=== PATIENT | male | born 1930 | race Caucasian/White ===

== ENCOUNTER 2018-12-31 13:48 | Emergency (ER) | payer MEDICARE, OTHER ==
[2018-12-31 14:11] VITALS: BP 139/79; PULSE 101; RESP 20; TEMP 98.2
[2018-12-31] MEDS ORDERED: FAMOTIDINE 20 MG TAB ONE (14:30)
[2018-12-31] MEDS ORDERED: diphenhydrAMINE 50 MG CAP ONE (14:30)
[2018-12-31] MEDS ORDERED: methylPREDNISolone SOD SUCCI 125 MG/2 ML VIAL ONE (14:30)
== END 2018-12-31 15:00 | disposition home or self-care (01) ==
LOC: EC 13:48
DX: T78.40XA Allergy, unspecified, initial encounter (principal); H57.89 Other specified disorders of eye and adnexa
CPT/HCPCS: 99283; 96372; J2930

== ENCOUNTER 2019-12-25 16:57 | Inpatient (IN) | payer MEDICARE, OTHER ==
[2019-12-25] MEDS ORDERED: ACETAMINOPHEN TAB 500 MG TAB PO STA (17:15)
--- NOTE | 2019-12-25 17:18 | ED ---
General Adult HPI - General Chief complaint: Weakness Stated complaint: Weakness Time Seen by Provider: 12/25/19 17:09 Source: patient, family Mode of arrival: wheelchair Limitations: physical limitation - History of Present Illness Initial comments: 89-year-old male patient presents to the emergency department today for evaluation of disorientation and weakness. Patient states this started last night she did have one episode of diarrhea. States that disorientation continued throughout the day today so he did make an appointment with his doctor however his sons thought it be better if he was evaluated in the emergency department. He does have a fever in triage, patient states he was unaware that he had a fever. He denies any chest pain or shortness of breath. Denies cough or congestion. He does report some nausea but no vomiting. He is reporting some left-sided abdominal discomfort. Denies any hematochezia, melena, hematuria, dysuria, urinary frequency, urinary urgency. Denies any dizziness him a headache, neck pain, neck stiffness. - Related Data Home Medications Medication Instructions Recorded Confirmed Aspirin 81 mg PO DAILY 03/20/16 12/31/18 EPINEPHrine (Auto Inject) [Epipen] 0.3 mg IM ONCE PRN 03/20/16 12/31/18 Enalapril [Vasotec] 10 mg PO DAILY 03/20/16 12/31/18 Timolol 0.5% Ophth Soln [Timoptic 1 drop BOTH EYES DAILY 12/31/18 12/31/18 0.5% Ophth Soln] Allergies Allergy/AdvReac Type Severity Reaction Status Date / Time bee pollen Allergy Anaphylaxis Verified 12/25/19 17:06 honey Allergy Rash/Hives Verified 12/25/19 17:06 venom-honey bee Allergy Anaphylaxis Verified 12/25/19 17:06 [bee venom (honey bee)] venom-wasp [wasp venom] Allergy Anaphylaxis Verified 12/25/19 17:06 Review of Systems ROS Statement: Those systems with pertinent positive or pertinent negative responses have been documented in the HPI. ROS Other: All systems not noted in ROS Statement are negative. Past Medical History Past Medical History: Hypertension Additional Past Medical History / Comment(s): Melanoma removed from R side of trunk, past fracture L wrist, hemorrhoids. History of Any Multi-Drug Resistant Organisms: None Reported Past Surgical History: Hernia Repair Additional Past Surgical History / Comment(s): umbilical hernia repair, colonoscopies x 2-normal, melanoma removed R side of trunk. Past Anesthesia/Blood Transfusion Reactions: No Reported Reaction Past Psychological History: No Psychological Hx Reported Smoking Status: Former smoker Past Alcohol Use History: Occasional Past Drug Use History: None Reported - Past Family History Father Additional Family Medical History / Comment(s): Father had heart problems. He at the age of 57yrs. Mother Family Medical History: Cancer Additional Family Medical History / Comment(s): Mother of bowel cancer at the age of 89yrs old. General Exam Limitations: physical limitation General appearance: alert, in no apparent distress, other (Physical well-develo ped, well-nourished elderly male patient in no acute distress. Vital signs upon presentation are temperature 101.3F, pulse 122, respirations 18, blood pressure 99/64, pulse ox 96% on room air.) Eye exam: Present: normal appearance, PERRL, EOMI. Absent: scleral icterus, co njunctival injection, periorbital swelling Respiratory exam: Present: normal lung sounds bilaterally. Absent: respiratory distress, wheezes, rales, rhonchi, stridor Cardiovascular Exam: Present: normal rhythm, tachycardia, normal heart sounds. Absent: systolic murmur, diastolic murmur, rubs, gallop, clicks GI/Abdominal exam: Present: soft, tenderness (Left upper quadrant tenderness.), normal bowel sounds. Absent: distended, guarding, rebound, rigid Neurological exam: Present: alert, oriented X3, CN II-XII intact Psychiatric exam: Present: normal affect, normal mood Skin exam: Present: warm, dry, intact, normal color. Absent: rash Course Vital Signs 12/25/19 12/25/19 12/25/19 17:03 17:45 18:50 Temperature 101.3 F H 99.5 F Pulse Rate 122 H 109 H 108 H Respiratory 18 18 18 Rate Blood Pressure 99/64 124/63 122/73 O2 Sat by Pulse 96 97 97 Oximetry EKG Findings - EKG Comments: EKG Findings:: EKG obtained at 1729 to sinus tachycardia. Ventricular rate of 1:15, [place] interval 170, QRS duration 98, QT 344, QTC 475. No evidence of ST elevation or depression. Medical Decision Making - Medical Decision Making 89-year-old male patient presents to the emergency department today for evaluation of disorientation. Upon arrival patient was febrile with a temperature of 101.3F. Patient physical exam did reveal left mid abdominal tenderness. Labs reviewed and did reveal white blood cell count of 17.3, hemoglobin 12.7, BUN 40, creatinine 1.96. Plasma lactic acid is 3.6. Urine shows no evidence for infection. CT abdomen and pelvis without contrast was obtained due to renal function showed evidence for possible sigmoid diverticulitis versus appendicitis. He has no right lower quadrant tenderness. He does have obvious sigmoid diverticulosis is more likely. There is also evidence for a renal tumor increase in size from his previous CT scan and he does have blood in his urine. He'll be admitted to the hospital with IV antibiotics. Patient family were updated regarding findings and plan of care, they are agreeable. - Lab Data Result diagrams: 12/25/19 17:34 12/25/19 17:34 Lab Results 12/25/19 12/25/19 12/25/19 Range/Units 17:34 17:34 17:34 WBC 17.3 H (3.8-10.6) k/uL RBC 4.13 L (4.30-5.90) m/uL Hgb 12.7 L (13.0-17.5) gm/dL Hct 40.6 (39.0-53.0) % MCV 98.3 (80.0-100.0) fL MCH 30.9 (25.0-35.0) pg MCHC 31.4 (31.0-37.0) g/dL RDW 14.1 (11.5-15.5) % Plt Count 172 (150-450) k/uL Neutrophils % 91 % Lymphocytes % 3 % Monocytes % 4 % Eosinophils % 2 % Basophils % 0 % Neutrophils # 15.7 H (1.3-7.7) k/uL Lymphocytes # 0.5 L (1.0-4.8) k/uL Monocytes # 0.6 (0-1.0) k/uL Eosinophils # 0.3 (0-0.7) k/uL Basophils # 0.0 (0-0.2) k/uL PT 10.8 (9.0-12.0) sec INR 1.0 (<1.2) APTT 24.5 (22.0-30.0) sec Sodium 135 L (137-145) mmol/L Potassium 4.7 (3.5-5.1) mmol/L Chloride 100 (98-107) mmol/L Carbon Dioxide 22 (22-30) mmol/L Anion Gap 13 mmol/L BUN 40 H (9-20) mg/dL Creatinine 1.96 H (0.66-1.25) mg/dL Est GFR (CKD-EPI)AfAm 34 (>60 ml/min/1.73 sqM) Est GFR (CKD-EPI)NonAf 30 (>60 ml/min/1.73 sqM) Glucose 163 H (74-99) mg/dL Lactic Ac Sepsis Rflx Plasma Lactic Acid Dank (0.7-2.0) mmol/L Calcium 9.0 (8.4-10.2) mg/dL Total Bilirubin 1.6 H (0.2-1.3) mg/dL AST 26 (17-59) U/L ALT 13 (4-49) U/L Alkaline Phosphatase 59 (38-126) U/L Total Protein 7.0 (6.3-8.2) g/dL Albumin 4.0 (3.5-5.0) g/dL Urine Color Urine Appearance (Clear) Urine pH (5.0-8.0) Ur Specific Hopkins (1.001-1.035) Urine Protein (Negative) Urine Glucose (UA) (Negative) Urine Ketones (Negative) Urine Blood (Negative) Urine Nitrite (Negative) Urine Bilirubin (Negative) Urine Urobilinogen (<2.0) mg/dL Ur Leukocyte Esterase (Negative) Urine RBC (0-5) /hpf Urine WBC (0-5) /hpf Amorphous Sediment (None) /hpf Hyaline Casts (0-2) /lpf Urine Mucus (None) /hpf 12/25/19 12/25/19 12/25/19 Range/Units 17:34 18:11 18:51 WBC (3.8-10.6) k/uL RBC (4.30-5.90) m/uL Hgb (13.0-17.5) gm/dL Hct (39.0-53.0) % MCV (80.0-100.0) fL MCH (25.0-35.0) pg MCHC (31.0-37.0) g/dL RDW (11.5-15.5) % Plt Count (150-450) k/uL Neutrophils % % Lymphocytes % % Monocytes % % Eosinophils % % Basophils % % Neutrophils # (1.3-7.7) k/uL Lymphocytes # (1.0-4.8) k/uL Monocytes # (0-1.0) k/uL Eosinophils # (0-0.7) k/uL Basophils # (0-0.2) k/uL PT (9.0-12.0) sec INR (<1.2) APTT (22.0-30.0) sec Sodium (137-145) mmol/L Potassium (3.5-5.1) mmol/L Chloride (98-107) mmol/L Carbon Dioxide (22-30) mmol/L Anion Gap mmol/L BUN (9-20) mg/dL Creatinine (0.66-1.25) mg/dL Est GFR (CKD-EPI)AfAm (>60 ml/min/1.73 sqM) Est GFR (CKD-EPI)NonAf (>60 ml/min/1.73 sqM) Glucose (74-99) mg/dL Lactic Ac Sepsis Rflx Y Plasma Lactic Acid Dank 3.6 H* (0.7-2.0) mmol/L Calcium (8.4-10.2) mg/dL Total Bilirubin (0.2-1.3) mg/dL AST (17-59) U/L ALT (4-49) U/L Alkaline Phosphatase (38-126) U/L Total Protein (6.3-8.2) g/dL Albumin (3.5-5.0) g/dL Urine Color Yellow Urine Appearance Clear (Clear) Urine pH 5.5 (5.0-8.0) Ur Specific Hopkins 1.019 (1.001-1.035) Urine Protein 1+ H (Negative) Urine Glucose (UA) Negative (Negative) Urine Ketones Negative (Negative) Urine Blood Small H (Negative) Urine Nitrite Negative (Negative) Urine Bilirubin Negative (Negative) Urine Urobilinogen <2.0 (<2.0) mg/dL Ur Leukocyte Esterase Negative (Negative) Urine RBC 1 (0-5) /hpf Urine WBC 2 (0-5) /hpf Amorphous Sediment Rare H (None) /hpf Hyaline Casts 29 H (0-2) /lpf Urine Mucus Rare H (None) /hpf - Radiology Data Radiology results: report reviewed, image reviewed CT abdomen and pelvis without contrast is obtained. Report was reviewed in its entirety. Impression by Dr. Borja shows solid mass in the medial right kidney that appears increased in size compared to 03/28/2016 and suspicious for tumor. Inflammatory changes in the pelvis in the midline and towards the right side probably due to sigmoid diverticulitis. Appendix not seen. Appendicitis not excluded. There are numerous to white diverticula. There are numerous descending colon diverticula. Mildly dilated small bowel fluid levels improved compared to old CT scanning could relate ileus or partial mechanical obstruction. Disposition Clinical Impression: Diverticulitis, Kidney tumor, Sepsis Disposition: ADMITTED IP TO [facility] Condition: Serious Decision to Admit Reason: Admit from EC Decision Date: 12/25/19 Decision Time: 20:10
[2019-12-25] MEDS: SODIUM CHLORIDE 0.9% 500 ML 500 ML IV SCH ×2 (17:45→17:48)
[2019-12-25 17:49] LABS: Basophils % (A) 0 %; Eosinophils # (A) 0.3 k/uL (0-0.7); Eosinophils % (A) 2 %; HCT 40.6 % (39.0-53.0); HGB 12.7 gm/dL (13.0-17.5); Lymphocytes # (A) 0.5 k/uL (1.0-4.8); Lymphocytes % (A) 3 %; MCH 30.9 pg (25.0-35.0); MCHC 31.4 g/dL (31.0-37.0); MCV 98.3 fL (80.0-100.0); Mean Platelet Volume 8.1; Monocytes # (A) 0.6 k/uL (0-1.0); Monocytes % (A) 4 %; Neutrophils # (A) 15.7 k/uL (1.3-7.7); Neutrophils % (A) 91 %; Platelet Count 172 k/uL (150-450); RBC 4.13 m/uL (4.30-5.90); RDW 14.1 % (11.5-15.5); WBC 17.3 k/uL (3.8-10.6)
[2019-12-25 17:58] LABS: Partial Thromboplastin Time 24.5 sec (22.0-30.0); Potassium 4.7 mmol/L (3.5-5.1); Prothrombin Time 10.8 sec (9.0-12.0); Total Bilirubin 1.6 mg/dL (0.2-1.3)
[2019-12-25 19:13] LABS: Amorphous Sediment,Urine Rare /hpf; Appearance,Urine Clear (Clear); Bilirubin,Urine Negative (Negative); Blood,Urine Small (Negative); Color,Urine Yellow; Glucose,Urine (UA) Negative (Negative); Hyaline Casts,Urine 29 /lpf (0-2); Ketones,Urine Negative (Negative); Leukocyte Esterase,Urine Negative (Negative); Mucus,Urine Rare /hpf; Nitrite,Urine Negative (Negative); PH, Urine 5.5 (5.0-8.0); Protein,Urine 1+ (Negative); RBC,Urine 1 /hpf (0-5); Specific Gravity,Urine 1.019 (1.001-1.035); Urobilinogen,Urine <2.0 mg/dL (<2.0); WBC,Urine 2 /hpf (0-5)
--- NOTE | 2019-12-25 19:52 | CT ---
EXAMINATION TYPE: CT abdomen pelvis wo con DATE OF EXAM: 12/25/2019 COMPARISON: 03/28/2016 HISTORY: LLQ pain with fever CT DLP: 831.4 mGycm Automated exposure control for dose reduction was used. There is some infiltrate and atelectasis at both lung bases. There is 3 cm area of airspace consolida tion lateral posterior left lower lobe. There is no pericardial effusion. Heart is slightly enlarged. There is no pleural effusion. There are multiple calcified small gallstones. Bile ducts are not dilated. Gallbladder is large and m easures 4.5 cm. There is no focal liver defect. Spleen is intact. There is no pancreatic mass. Stomac h is intact. There is no adrenal mass. There is 4.2 x 3.1 cm soft tissue mass involving the medial cortex right ki dney. There is 2 cm cortical cyst lateral right kidney. There is 6.5 cm cortical cyst lower pole righ t kidney. Abdominal aorta is atheromatous. There is no retroperitoneal adenopathy. 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 Bladder distends smoothly. There is some prostate calcification. There is right-sided inguinal hernia that contains fat. There is some mild mesenteric fat stranding in the lower abdomen. There is more extensive fat strandi ng around the cecum which is adjacent to the sigmoid colon.. There are diverticula of the sigmoid col on. Inflammatory changes could be sigmoid diverticulitis. There are numerous diverticula of the desce nding colon. There are some distended multiple small bowel loops with fluid levels. Small bowel measu res up to 3.3 cm. The distal ileum is not dilated. There is no free air. There is no ascites. Lumbar vertebra have normal alignment. Disc spaces are fairly normal. Bony pelvis is intact. IMPRESSION: There is a solid mass in the medial right kidney that appears increased in size compared to 03/28/2016 and suspicious for tumor. Old exam measures 3.5 cm and now measures 4.3 cm. Renal cortical cysts. Inflammatory changes in the pelvis in the midline and towards the right side probably due to sigmoid diverticulitis. Appendix not seen. Appendicitis not excluded. There are numerous sigmoid diverticula. There are numerous descending colon diverticula. Mildly dilated small bowel with fluid levels improved compared to old CT scan and could relate to ile us or partial mechanical obstruction..
[2019-12-25] MEDS ORDERED: MORPHINE SULFATE 2 MG/ML SYRINGE IV PRN (20:04)
[2019-12-25] MEDS ORDERED: NALOXONE 0.4 MG/ML 1 ML VIAL IV PRN (20:04)
[2019-12-25] MEDS ORDERED: PIPERACILLIN-TAZOBACTAM 3.375 GM in SODIUM CHLORIDE 0.9% 100 ML IVPB STA (20:04)
[2019-12-25] MEDS ORDERED: ACETAMINOPHEN TAB 325 MG TAB PO PRN (20:04)
[2019-12-25] MEDS ORDERED: ONDANSETRON 4 MG/2 ML VIAL IVP PRN (20:04)
[2019-12-25] MEDS ORDERED: PIPERACILLIN-TAZOBACTAM 3.375 GM in SODIUM CHLORIDE 0.9% 100 ML IVPB SCH (20:15)
[2019-12-25] MEDS ORDERED: metroNIDAZOLE-NS PMX 500 MG in SALINE 1 100ML.BAG IVPB STA (20:22)
[2019-12-25] MEDS: SODIUM CHLORIDE 0.9% 1,000 ML IV SCH (21:22)
[2019-12-25] MEDS: diphenhydrAMINE 50 MG/ML 1 ML VIAL IVP PRN (22:05)
[2019-12-26] MEDS: SODIUM CHLORIDE 0.9% 1,000 ML IV SCH ×3 (05:41→20:52)
[2019-12-26 06:48] LABS: Albumin 3.3 g/dL (3.5-5.0); Calcium 8.1 mg/dL (8.4-10.2); Potassium 3.8 mmol/L (3.5-5.1); Total Bilirubin 1.1 mg/dL (0.2-1.3)
[2019-12-26 06:51] LABS: Basophils % (A) 0 %; Eosinophils # (A) 0.1 k/uL (0-0.7); Eosinophils % (A) 1 %; HCT 37.3 % (39.0-53.0); HGB 12.2 gm/dL (13.0-17.5); Hypochromasia Slight; Lymphocytes # (A) 0.6 k/uL (1.0-4.8); Lymphocytes % (A) 4 %; MCH 32.8 pg (25.0-35.0); MCHC 32.8 g/dL (31.0-37.0); MCV 99.8 fL (80.0-100.0); Macrocytosis Slight; Mean Platelet Volume 8.3; Monocytes # (A) 0.4 k/uL (0-1.0); Monocytes % (A) 3 %; Neutrophils # (A) 12.6 k/uL (1.3-7.7); Neutrophils % (A) 90 %; Platelet Count 158 k/uL (150-450); RBC 3.74 m/uL (4.30-5.90); RDW 14.3 % (11.5-15.5); WBC 13.9 k/uL (3.8-10.6)
[2019-12-26] MEDS: diphenhydrAMINE 50 MG/ML 1 ML VIAL IVP PRN (08:12)
[2019-12-26] MEDS: metroNIDAZOLE-NS PMX 500 MG in SALINE 1 100ML.BAG IVPB SCH ×2 (08:43→16:56)
--- NOTE | 2019-12-26 14:13 | P.GSCN ---
History of Present Illness Consult date: 12/26/19 Reason for Consult: Diverticulitis Requesting physician: Danielle Doran History of present illness: CHIEF COMPLAINT: Abdominal pain HISTORY OF PRESENT ILLNESS: 89-year-old male who presented to the emergency room with a chief complaint of weakness. Patient also reporting abdominal pain. Patient denied nausea or vomiting. Denies diarrhea or constipation. PAST MEDICAL HISTORY: See list. PAST SURGICAL HISTORY: See list. SOCIAL HISTORY: No illicit drug use. REVIEW OF SYSTEMS: CONSTITUTIONAL: Denies fever or chills. Reports weakness HEENT: Denies blurred vision, vision changes, or eye pain. Denies hemoptysis CARDIOVASCULAR: Denies chest pain or pressure. RESPIRATORY: No shortness of breath. GASTROINTESTINAL: Refer to HPI for pertinent findings HEMATOLOGIC: Denies bleeding disorders. GENITOURINARY: Denies any blood in urine. SKIN: Denies pruitis. Denies rash. PHYSICAL EXAM: VITAL SIGNS: Reviewed. GENERAL: Well-developed in no acute distress. HEENT: No sclera icterus. Extraocular movements grossly intact. Moist buccal mucosa. Head is atraumatic, normocephalic. ABDOMEN: Soft. Nondistended. Tenderness upon palpation to left lower quadrant. NEUROLOGIC: Alert and oriented. Cranial nerves II through XII grossly intact. LABORATORY DATA: WBC 13.9. Hemoglobin 12.2. Platelet count 158. IMAGING: CT abdomen and pelvis: Solid mass in the right medial kidney that appears increased in size compared to 2016 and suspicious for tumor. Inflammatory changes in the pelvis most likely due to sigmoid diverticulitis. Appendix not seen. Appendicitis is not excluded. Numerous sigmoid diverticula. ASSESSMENT: 1. Acute sigmoid diverticulitis 2. History of small bowel obstruction with exploratory laparotomy with lysis of adhesions, February 2016 PLAN: -Monitor WBC. Continue antibiotics -Continue NPO status today secondary to abdominal pain. Possible clear liquid diet tomorrow -No surgical intervention recommended -Consult for general surgery was also placed for renal mass. Recommend urology consult as general surgery does not evaluate or treat renal masses Nurse practitioner note has been reviewed by physician. Signing provider agrees with the documented findings, assessment, and plan of care. Past Medical History Past Medical History: Hypertension Additional Past Medical History / Comment(s): Melanoma removed from R side of trunk, past fracture L wrist, hemorrhoids. History of Any Multi-Drug Resistant Organisms: None Reported Past Surgical History: Hernia Repair Additional Past Surgical History / Comment(s): umbilical hernia repair, colonoscopies x 2-normal, melanoma removed R side of trunk. Past Anesthesia/Blood Transfusion Reactions: No Reported Reaction Past Psychological History: No Psychological Hx Reported Smoking Status: Former smoker Past Alcohol Use History: Occasional Past Drug Use History: None Reported - Past Family History Father Additional Family Medical History / Comment(s): Father had heart problems. He at the age of 57yrs. Mother Family Medical History: Cancer Additional Family Medical History / Comment(s): Mother of bowel cancer at the age of 89yrs old. Medications and Allergies Home Medications Medication Instructions Recorded Confirmed Type Aspirin 81 mg PO DAILY 03/20/16 12/26/19 History EPINEPHrine (Auto Inject) [Epipen] 0.3 mg IM ONCE PRN 03/20/16 12/26/19 History Enalapril [Vasotec] 10 mg PO DAILY 03/20/16 12/26/19 History Allergies Allergy/AdvReac Type Severity Reaction Status Date / Time bee pollen Allergy Anaphylaxis Verified 12/26/19 12:15 honey Allergy Rash/Hives Verified 12/26/19 12:15 venom-honey bee Allergy Anaphylaxis Verified 12/26/19 12:15 [bee venom (honey bee)] venom-wasp [wasp venom] Allergy Anaphylaxis Verified 12/26/19 12:15 Surgical - Exam Vital Signs Temp Pulse Resp BP Pulse Ox 101.3 F H 122 H 18 99/64 96 12/25/19 17:03 12/25/19 17:03 12/25/19 17:03 12/25/19 17:03 12/25/19 17:03 Results - Labs 12/26/19 06:16 12/26/19 06:16 Abnormal Lab Results - Last 24 Hours (Table) 12/25/19 12/25/19 12/25/19 Range/Units 17:34 17:34 17:34 WBC 17.3 H (3.8-10.6) k/uL RBC 4.13 L (4.30-5.90) m/uL Hgb 12.7 L (13.0-17.5) gm/dL Hct (39.0-53.0) % Neutrophils # 15.7 H (1.3-7.7) k/uL Lymphocytes # 0.5 L (1.0-4.8) k/uL Sodium 135 L (137-145) mmol/L Carbon Dioxide (22-30) mmol/L BUN 40 H (9-20) mg/dL Creatinine 1.96 H (0.66-1.25) mg/dL Glucose 163 H (74-99) mg/dL Plasma Lactic Acid Dank 3.6 H* (0.7-2.0) mmol/L Calcium (8.4-10.2) mg/dL Total Bilirubin 1.6 H (0.2-1.3) mg/dL Total Protein (6.3-8.2) g/dL Albumin (3.5-5.0) g/dL Urine Protein (Negative) Urine Blood (Negative) Amorphous Sediment (None) /hpf Hyaline Casts (0-2) /lpf Urine Mucus (None) /hpf 12/25/19 12/26/19 12/26/19 Range/Units 18:51 06:16 06:16 WBC 13.9 H (3.8-10.6) k/uL RBC 3.74 L (4.30-5.90) m/uL Hgb 12.2 L (13.0-17.5) gm/dL Hct 37.3 L (39.0-53.0) % Neutrophils # 12.6 H (1.3-7.7) k/uL Lymphocytes # 0.6 L (1.0-4.8) k/uL Sodium (137-145) mmol/L Carbon Dioxide 20 L (22-30) mmol/L BUN 40 H (9-20) mg/dL Creatinine 1.79 H (0.66-1.25) mg/dL Glucose 128 H (74-99) mg/dL Plasma Lactic Acid Dank (0.7-2.0) mmol/L Calcium 8.1 L (8.4-10.2) mg/dL Total Bilirubin (0.2-1.3) mg/dL Total Protein 6.0 L (6.3-8.2) g/dL Albumin 3.3 L (3.5-5.0) g/dL Urine Protein 1+ H (Negative) Urine Blood Small H (Negative) Amorphous Sediment Rare H (None) /hpf Hyaline Casts 29 H (0-2) /lpf Urine Mucus Rare H (None) /hpf Diabetes panel 05/28/20 05/29/20 Range/Units 17:34 06:16 Sodium 135 L 138 (137-145) mmol/L Potassium 4.7 3.8 (3.5-5.1) mmol/L Chloride 100 105 (98-107) mmol/L Carbon Dioxide 22 20 L (22-30) mmol/L BUN 40 H 40 H (9-20) mg/dL Creatinine 1.96 H 1.79 H (0.66-1.25) mg/dL Glucose 163 H 128 H (74-99) mg/dL Calcium 9.0 8.1 L (8.4-10.2) mg/dL AST 26 28 (17-59) U/L ALT 13 13 (4-49) U/L Alkaline Phosphatase 59 56 (38-126) U/L Total Protein 7.0 6.0 L (6.3-8.2) g/dL Albumin 4.0 3.3 L (3.5-5.0) g/dL Calcium panel 12/25/19 12/26/19 Range/Units 17:34 06:16 Calcium 9.0 8.1 L (8.4-10.2) mg/dL Albumin 4.0 3.3 L (3.5-5.0) g/dL Pituitary panel 12/25/19 12/26/19 Range/Units 17:34 06:16 Sodium 135 L 138 (137-145) mmol/L Potassium 4.7 3.8 (3.5-5.1) mmol/L Chloride 100 105 (98-107) mmol/L Carbon Dioxide 22 20 L (22-30) mmol/L BUN 40 H 40 H (9-20) mg/dL Creatinine 1.96 H 1.79 H (0.66-1.25) mg/dL Glucose 163 H 128 H (74-99) mg/dL Calcium 9.0 8.1 L (8.4-10.2) mg/dL Adrenal panel 12/25/19 12/26/19 Range/Units 17:34 06:16 Sodium 135 L 138 (137-145) mmol/L Potassium 4.7 3.8 (3.5-5.1) mmol/L Chloride 100 105 (98-107) mmol/L Carbon Dioxide 22 20 L (22-30) mmol/L BUN 40 H 40 H (9-20) mg/dL Creatinine 1.96 H 1.79 H (0.66-1.25) mg/dL Glucose 163 H 128 H (74-99) mg/dL Calcium 9.0 8.1 L (8.4-10.2) mg/dL Total Bilirubin 1.6 H 1.1 (0.2-1.3) mg/dL AST 26 28 (17-59) U/L ALT 13 13 (4-49) U/L Alkaline Phosphatase 59 56 (38-126) U/L Total Protein 7.0 6.0 L (6.3-8.2) g/dL Albumin 4.0 3.3 L (3.5-5.0) g/dL
[2019-12-26] MEDS ORDERED: ENALAPRIL 10 MG PO SCH (16:00)
--- NOTE | 2019-12-26 16:54 | P.HPIM ---
History of Present Illness H&P Date: 12/26/19 Chief Complaint: Abdominal pain This is an 89-year-old gentleman with history of diverticulosis, small bowel obstruction secondary to adhesions with exploratory laparotomy with subsequent repeat laparotomy with closure of fascial dehiscence, inguinal hernia repair, hypertension, melanoma, nicotine dependence and multiple other medical issues presented to the ER with complaints of increasing generalized weakness, left- sided abdominal pain,nausea, no emesis, diarrhea accompanied by disorientation. Denied fever,chills or cough. Denies congestion. Denies chest pain, palpi tations or shortness of breath. Denies hemoptysis, hematochezia, melena, hematuria. Denies lightheadedness, dizziness or focal deficits. 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 EKG point sinus tachycardia, troponin pending. On admission, febrile with temperature up 101.3, tachycardic heart rate 122, hypotensive, blood pressure 99/64, respiratory rate 18, maintaining O2 sats in the 90s on room air. WBC 17.3, hemoglobin 12.7, platelets 172, INR 1, sodium 135, BUN 40, creatinine 1.96. Lactic acid 3.6, received IV fluid hydration ,decreased to 1.2. Total bili mildly elevated at 1.6, LFTs within normal limits. UA reporting blood. Coronavirus not detected. IV antibiotics of Rocephin and Flagyl initiated in addition to IV fluid hydration. Surgery and interventional radiology consulted. Review of Systems ROS Statement: Those systems with pertinent positive or pertinent negative responses have been documented in the HPI. ROS Other: All systems not noted in ROS Statement are negative. Past Medical History Past Medical History: Hypertension Additional Past Medical History / Comment(s): Melanoma removed from R side of trunk, past fracture L wrist, hemorrhoids. History of Any Multi-Drug Resistant Organisms: None Reported Past Surgical History: Hernia Repair Additional Past Surgical History / Comment(s): umbilical hernia repair, colo noscopies x 2-normal, melanoma removed R side of trunk. Past Anesthesia/Blood Transfusion Reactions: No Reported Reaction Past Psychological History: No Psychological Hx Reported Smoking Status: Former smoker Past Alcohol Use History: Occasional Past Drug Use History: None Reported - Past Family History Father Additional Family Medical History / Comment(s): Father had heart problems. He at the age of 57yrs. Mother Family Medical History: Cancer Additional Family Medical History / Comment(s): Mother of bowel cancer at the age of 89yrs old. Medications and Allergies Home Medications Medication Instructions Recorded Confirmed Type Aspirin 81 mg PO DAILY 03/20/16 12/26/19 History EPINEPHrine (Auto Inject) [Epipen] 0.3 mg IM ONCE PRN 03/20/16 12/26/19 History Enalapril [Vasotec] 10 mg PO DAILY 03/20/16 12/26/19 History Allergies Allergy/AdvReac Type Severity Reaction Status Date / Time bee pollen Allergy Anaphylaxis Verified 12/26/19 12:15 honey Allergy Rash/Hives Verified 12/26/19 12:15 venom-honey bee Allergy Anaphylaxis Verified 12/26/19 12:15 [bee venom (honey bee)] venom-wasp [wasp venom] Allergy Anaphylaxis Verified 12/26/19 12:15 Physical Exam Vitals: Vital Signs Temp Pulse Pulse Resp BP BP Pulse Ox 12/26/19 13:55 98.3 F 108 H 18 139/76 96 12/26/19 13:29 18 12/26/19 12:12 101 H 18 137/81 100 12/26/19 07:57 103 H 18 120/74 97 12/26/19 05:45 97.9 F 98 17 127/73 96 12/25/19 21:25 99.2 F 97 17 120/78 98 12/25/19 18:50 99.5 F 108 H 18 122/73 97 12/25/19 17:45 109 H 18 124/63 97 12/25/19 17:03 101.3 F H 122 H 18 99/64 96 GENERAL: Well-developed elderly gentleman ,Sitting up in bed, no acute distress. HEAD: Atraumatic, normocephalic. EYES: Pupils equal, round, and reactive to light, extraocular movements intact, sclera anicteric, conjunctiva are normal. ENT: Oropharynx clear without exudates. Oral mucosa dry. NECK:Supple without lymphadenopathy or JVD. LUNGS: Breath sounds clear to auscultation bilaterally. No wheezes, rales, or rhonchi. HEART: Regular S1 and S2, tachycardic, No murmurs, rubs or gallops. ABDOMEN: Soft, left upper and lower quadrant tenderness,distended, normoactive bowel sounds. No guarding, no rebound. No masses or organomegaly appreciated. EXTREMITIES: 2+ peripheral pulses. No edema, clubbing or cyanosis. No calf tenderness. NEUROLOGICAL: Pt oriented x 3. Cranial nerves II through XII grossly intact. Strength and sensation grossly intact. PSYCH: Normal mood, normal affect. SKIN: Warm, dry, intact. Normal turgor. No rashes. Results CBC & Chem 7: 12/26/19 06:16 12/26/19 06:16 Labs: Abnormal Lab Results - Last 24 Hours (Table) 12/25/19 12/25/19 12/25/19 Range/Units 17:34 17:34 17:34 WBC 17.3 H (3.8-10.6) k/uL RBC 4.13 L (4.30-5.90) m/uL Hgb 12.7 L (13.0-17.5) gm/dL Hct (39.0-53.0) % Neutrophils # 15.7 H (1.3-7.7) k/uL Lymphocytes # 0.5 L (1.0-4.8) k/uL Sodium 135 L (137-145) mmol/L Carbon Dioxide (22-30) mmol/L BUN 40 H (9-20) mg/dL Creatinine 1.96 H (0.66-1.25) mg/dL Glucose 163 H (74-99) mg/dL Plasma Lactic Acid Dank 3.6 H* (0.7-2.0) mmol/L Calcium (8.4-10.2) mg/dL Total Bilirubin 1.6 H (0.2-1.3) mg/dL Total Protein (6.3-8.2) g/dL Albumin (3.5-5.0) g/dL Urine Protein (Negative) Urine Blood (Negative) Amorphous Sediment (None) /hpf Hyaline Casts (0-2) /lpf Urine Mucus (None) /hpf 12/25/19 12/26/19 12/26/19 Range/Units 18:51 06:16 06:16 WBC 13.9 H (3.8-10.6) k/uL RBC 3.74 L (4.30-5.90) m/uL Hgb 12.2 L (13.0-17.5) gm/dL Hct 37.3 L (39.0-53.0) % Neutrophils # 12.6 H (1.3-7.7) k/uL Lymphocytes # 0.6 L (1.0-4.8) k/uL Sodium (137-145) mmol/L Carbon Dioxide 20 L (22-30) mmol/L BUN 40 H (9-20) mg/dL Creatinine 1.79 H (0.66-1.25) mg/dL Glucose 128 H (74-99) mg/dL Plasma Lactic Acid Dank (0.7-2.0) mmol/L Calcium 8.1 L (8.4-10.2) mg/dL Total Bilirubin (0.2-1.3) mg/dL Total Protein 6.0 L (6.3-8.2) g/dL Albumin 3.3 L (3.5-5.0) g/dL Urine Protein 1+ H (Negative) Urine Blood Small H (Negative) Amorphous Sediment Rare H (None) /hpf Hyaline Casts 29 H (0-2) /lpf Urine Mucus Rare H (None) /hpf Assessment and Plan Assessment: Sepsis secondary to acute sigmoid diverticulitis in a patient with History of diverticulosis, possibly ileus, possible partial mechanical small bowel obstruction Renal mass, possibly tumor increasing in in size Leukocytosis History of small bowel obstruction secondary to adhesions with exploratory laparotomy with subsequent repeat laparotomy with closure of fascial dehiscence Acute renal failure secondary to dehydration Chronic kidney disease, 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 History of melanoma. History of umbilical hernia repair History of extensive nicotine dependence. Plan: Continue on current medication regime ,monitoring and symptomatic treatment. Maintain IV fluid hydration, rate decreased. Maintain nothing by mouth, possibly initiate clear liquids in a.m. if okay with surgery. Surgery and interventional radiology consulted. Blood cultures pending. Maintain IV antibiotics of Flagyl and Rocephin. Home meds have been reviewed and resumed accordingly. GI prophylaxis with Protonix. Potential renal biopsyPneumatic sleeves/compression stockings for DVT prophylaxis at this time. Close monitoring of renal function, electrolytes with repeat labs ordered for a.m. Prognosis guarded given multiple complex medical issues. The impression and plan of care has been dictated as directed. : I performed a history and examination of this patient, discussed the same with the dictator. I agree with the dictator's note ,documented as a scribe. Any additional findings or plans will be noted.
[2019-12-26] MEDS: PANTOPRAZOLE 40 MG/10 ML VIAL IVP SCH (16:56)
--- NOTE | 2019-12-26 19:14 | XR ---
EXAMINATION TYPE: XR chest 1V portable DATE OF EXAM: 12/26/2019 COMPARISON: 04/07/2016 HISTORY: Weakness, acute diverticulitis and sepsis. TECHNIQUE: Single frontal view of the chest is obtained. FINDINGS: Redemonstration of mediastinal widening. Left-sided PICC has been removed. Left basilar ai rspace disease along the left hemidiaphragm appears linear and likely relates to atelectasis. Diffuse osseous demineralization is seen. IMPRESSION: 1. Chronic-appearing mediastinal widening. Thoracic aortic aneurysm is possible. 2. Left basilar airspace disease, likely atelectasis.
[2019-12-27] MEDS: metroNIDAZOLE-NS PMX 500 MG in SALINE 1 100ML.BAG IVPB SCH ×4 (00:09→22:44)
[2019-12-27 07:00] LABS: Basophils % (A) 0 %; Eosinophils % (A) 0 %; HCT 33.8 % (39.0-53.0); HGB 10.5 gm/dL (13.0-17.5); Hypochromasia Slight; Lymphocytes # (A) 0.4 k/uL (1.0-4.8); Lymphocytes % (A) 4 %; MCH 31.1 pg (25.0-35.0); MCV 100.2 fL (80.0-100.0); Macrocytosis Slight; Mean Platelet Volume 8.7; Monocytes # (A) 0.5 k/uL (0-1.0); Monocytes % (A) 5 %; Neutrophils # (A) 9.4 k/uL (1.3-7.7); Neutrophils % (A) 90 %; Platelet Count 147 k/uL (150-450); RBC 3.38 m/uL (4.30-5.90); RDW 14.4 % (11.5-15.5); WBC 10.5 k/uL (3.8-10.6)
[2019-12-27 07:14] LABS: Calcium 7.4 mg/dL (8.4-10.2); Potassium 3.7 mmol/L (3.5-5.1)
[2019-12-27] MEDS: PANTOPRAZOLE 40 MG/10 ML VIAL IVP SCH (08:33)
[2019-12-27] MEDS: ASPIRIN 81 MG PO SCH (08:33)
[2019-12-27] MEDS ORDERED: METOPROLOL TARTRATE 12.5 MG TAB PO SCH (09:00)
--- NOTE | 2019-12-27 10:48 | P.PN ---
Subjective Progress Note Date: 12/27/19 Principal diagnosis: Diverticulitis Patient complaining of being thirsty. Pain is improved. Heart rate 100s. White blood cell count 10.5. Patient did have a bowel movement. Objective - Vital Signs Vital signs: Vital Signs Temp 98.6 F 12/26/19 22:35 Pulse 130 H 12/27/19 08:00 Resp 16 12/26/19 22:35 BP 131/71 12/26/19 22:35 Pulse Ox 98 12/26/19 22:35 Intake & Output 12/26/19 12/27/19 12/27/19 18:59 06:59 18:59 Intake Total 760 Output Total 1 Balance 759 Weight 85.275 kg Intake: Intake, IV Titration 760 Amount Sodium Chloride 0.9% 1, 660 000 ml @ 60 mls/hr IV . [id number] [facility] Rx#:[id number] metroNIDAZOLE-NS PMX 500 100 mg In Saline 1 100ml.bag @ 100 mls/hr IVPB Q8HR [facility] Rx#:[id number] Oral 0 Output: Urine/Stool Mix 1 Other: # Voids 1 # Bowel Movements 1 1 - Exam Abdomen: Soft, nondistended, left lower quadrant tenderness noted - Labs CBC & Chem 7: 12/27/19 05:49 12/27/19 05:49 Labs: Abnormal Lab Results - Last 24 Hours (Table) 12/26/19 12/26/19 12/27/19 Range/Units 06:16 23:20 05:49 RBC 3.38 L (4.30-5.90) m/uL Hgb 10.5 L (13.0-17.5) gm/dL Hct 33.8 L (39.0-53.0) % MCV 100.2 H (80.0-100.0) fL Plt Count 147 L (150-450) k/uL Neutrophils # 9.4 H (1.3-7.7) k/uL Lymphocytes # 0.4 L (1.0-4.8) k/uL Chloride (98-107) mmol/L Carbon Dioxide (22-30) mmol/L BUN (9-20) mg/dL Creatinine (0.66-1.25) mg/dL Glucose (74-99) mg/dL Calcium (8.4-10.2) mg/dL Troponin I 1.850 H* 3.950 H* (0.000-0.034) ng/mL 12/27/19 12/27/19 Range/Units 05:49 05:49 RBC (4.30-5.90) m/uL Hgb (13.0-17.5) gm/dL Hct (39.0-53.0) % MCV (80.0-100.0) fL Plt Count (150-450) k/uL Neutrophils # (1.3-7.7) k/uL Lymphocytes # (1.0-4.8) k/uL Chloride 112 H (98-107) mmol/L Carbon Dioxide 20 L (22-30) mmol/L BUN 34 H (9-20) mg/dL Creatinine 1.58 H (0.66-1.25) mg/dL Glucose 108 H (74-99) mg/dL Calcium 7.4 L (8.4-10.2) mg/dL Troponin I 3.910 H* (0.000-0.034) ng/mL Microbiology - Last 24 Hours (Table) 12/25/19 17:34 Blood Culture - Preliminary Blood No Growth after 24 hours Assessment and Plan (1) Diverticulitis Narrative/Plan: Patient doing better today. Will begin clear liquid diet. Await urology evaluation. Continue antibiotics Current Visit: Yes Status: Acute Code(s): K57.92 - DVTRCLI OF INTEST, PART U NSP, W/O PERF OR ABSCESS W/O BLEED SNOMED Code(s): 569472259
--- NOTE | 2019-12-27 12:43 | P.CRDCN ---
History of Present Illness Consult date: 12/27/19 Requesting physician: Saroj Bradshaw Chief complaint: Weakness and disorientation History of present illness: This is an 89-year-old gentleman with a documented history of diverticulosis, hypertension, a contained dependence, who presented to the emergency room with symptoms of generalized weakness, abdominal discomfort, and diarrhea. 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 EKG on presentation here showed a sinus tachycardia, at the time of my examination patient is currently in atrial fibrillation. Temperature on admission 101.3, heart rate 120s 130s, blood pressure 99/60, 90% on room air. White blood cell count 17.3, hemoglobin 12.7, platelet count 172. Sodium 135, BUN 40, creatinine 1.9, lactic acid 3.6, down to 1.2. Romero virus not detected. Troponins 1.8, 3.9, 3.9. Because of the abnormality in troponin a cardiology consultation has been requested. Patient denies having any chest discomfort or breathing difficulty. Past Medical History Past Medical History: Hypertension Additional Past Medical History / Comment(s): Melanoma removed from R side of trunk, past fracture L wrist, hemorrhoids SBO History of Any Multi-Drug Resistant Organisms: None Reported Past Surgical History: Hernia Repair Additional Past Surgical History / Comment(s): umbilical hernia repair, colonoscopies x 2-normal, melanoma removed R side of trunk. bowel resection Past Anesthesia/Blood Transfusion Reactions: No Reported Reaction Past Psychological History: No Psychological Hx Reported Additional Psychological History / Comment(s): Pt resides alone. He uses no assistive device. He drives. Smoking Status: Former smoker Past Alcohol Use History: Occasional Past Drug Use History: None Reported - Past Family History Father Additional Family Medical History / Comment(s): Father had heart problems. He at the age of 57yrs. Mother Family Medical History: Cancer Additional Family Medical History / Comment(s): Mother of bowel cancer at the age of 89yrs old. Medications and Allergies Home Medications Medication Instructions Recorded Confirmed Type Aspirin 81 mg PO DAILY 03/20/12/26/19 History EPINEPHrine (Auto Inject) [Epipen] 0.3 mg IM ONCE PRN 03/20/16 12/26/19 History Enalapril [Vasotec] 10 mg PO DAILY 03/20/16 12/26/19 History Allergies Allergy/AdvReac Type Severity Reaction Status Date / Time bee pollen Allergy Anaphylaxis Verified 12/26/19 12:15 honey Allergy Rash/Hives Verified 12/26/19 12:15 venom-honey bee Allergy Anaphylaxis Verified 12/26/19 12:15 [bee venom (honey bee)] venom-wasp [wasp venom] Allergy Anaphylaxis Verified 12/26/19 12:15 Physical Exam Vitals: Vital Signs Temp Pulse Resp BP Pulse Ox 12/27/19 12:00 90 110/75 12/27/19 08:00 98.1 F 130 H 121/67 97 12/27/19 00:17 110 H 12/26/19 22:35 98.6 F 107 H 16 131/71 98 12/26/19 18:00 98.5 F 108 H 18 123/79 97 12/26/19 13:55 98.3 F 108 H 18 139/76 96 12/26/19 13:29 18 Intake and Output 12/26/19 12/27/19 12/27/19 22:59 06:59 14:59 Intake Total 760 250 Output Total 1 Balance -1 760 250 Intake: Intake, IV Titration 760 150 Amount Sodium Chloride 0.9% 1, 660 000 ml @ 60 mls/hr IV . [id number] [facility] Rx#:[id number] cefTRIAXone 1 gm In 50 Sodium Chloride 0.9% 50 ml @ 100 mls/hr IVPB Q24HR [facility] Rx#:[id number] metroNIDAZOLE-NS PMX 500 100 100 mg In Saline 1 100ml.bag @ 100 mls/hr IVPB Q8HR [facility] Rx#:[id number] Oral 0 100 Output: Urine/Stool Mix 1 Other: # Voids 1 1 # Bowel Movements 1 1 Weight 85.275 kg PHYSICAL EXAMINATION: GENERAL: 89-year-old gentleman in no acute distress at the time of my examination HEENT: Head is atraumatic, normocephalic. Pupils equal, round. Sclera anicteric. Conjunctiva are clear. Mucous membranes of the mouth are moist. Neck is supple. There is no elevated jugular venous pressure. No carotid bruit is heard. HEART EXAMINATION: Heart S1, S2 tachycardic . No murmur or gallop heard. CHEST EXAMINATION: Lungs are clear to auscultation and precussion. No chest wall tenderness is noted on palpation or with deep breathing. ABDOMEN: Soft, nontender. Bowel sounds are heard. No organomegaly noted. EXTREMITIES: 2+ peripheral pulses with no evidence of peripheral edema and no calf tenderness noted. NEUROLOGIC patient is awake, alert and oriented 2 . . Results 12/27/19 05:49 12/27/19 05:49 Cardiac Enzymes 12/26/19 12/26/19 12/27/19 Range/Units 06:16 23:20 05:49 Troponin I 1.850 H* 3.950 H* 3.910 H* (0.000-0.034) ng/mL CBC 12/27/19 Range/Units 05:49 WBC 10.5 (3.8-10.6) k/uL RBC 3.38 L (4.30-5.90) m/uL Hgb 10.5 L (13.0-17.5) gm/dL Hct 33.8 L (39.0-53.0) % Plt Count 147 L (150-450) k/uL Comprehensive Metabolic Panel 12/27/19 Range/Units 05:49 Sodium 141 (137-145) mmol/L Potassium 3.7 (3.5-5.1) mmol/L Chloride 112 H (98-107) mmol/L Carbon Dioxide 20 L (22-30) mmol/L BUN 34 H (9-20) mg/dL Creatinine 1.58 H (0.66-1.25) mg/dL Glucose 108 H (74-99) mg/dL Calcium 7.4 L (8.4-10.2) mg/dL Current Medications Generic Name Dose Route Start Last Admin Trade Name Freq PRN Reason Stop Dose Admin Acetaminophen 650 mg 12/25/19 20:04 Tylenol Tab PO Q6HR PRN Mild Pain or Fever > 100.5 Aspirin 81 mg 12/27/19 09:00 12/27/19 08:33 Aspirin PO 81 mg DAILY [facility] Administration Diphenhydramine HCl 12.5 mg 12/25/19 21:29 12/26/19 08:12 Benadryl IVP 12.5 mg Q6HR PRN Administration Itching Sodium Chloride 1,000 mls @ 60 mls/hr 12/25/19 20:15 12/26/19 20:52 Saline 0.9% IV 60 mls/hr .[id number] [facility] Administration Metronidazole 500 mg/ IV 100 mls @ 100 mls/hr 12/26/19 08:00 12/27/19 08:33 Solution IVPB 100 mls/hr Q8HR [facility] Administration Ceftriaxone Sodium 1 gm/ 50 mls @ 100 mls/hr 12/26/19 09:00 12/27/19 08:34 Sodium Chloride IVPB 100 mls/hr Q24HR [facility] Administration Metoprolol Tartrate 12.5 mg 12/27/19 09:00 12/27/19 08:33 Lopressor PO 12.5 mg BID [facility] Administration Morphine Sulfate 2 mg 12/25/19 20:04 Morphine Sulfate (Inj) IV Q3H PRN Severe Pain Naloxone HCl 0.2 mg 12/25/19 20:04 Narcan IV Q2M PRN Opioid Reversal Ondansetron HCl 4 mg 12/25/19 20:04 Zofran IVP Q8HR PRN Nausea And Vomiting Pantoprazole Sodium 40 mg 12/26/19 16:00 12/27/19 08:33 Protonix IVP 40 mg DAILY [facility] Administration Intake and Output 12/26/19 12/27/19 12/27/19 22:59 06:59 14:59 Intake Total 760 250 Output Total 1 Balance -1 760 250 Intake: Intake, IV Titration 760 150 Amount Sodium Chloride 0.9% 1, 660 000 ml @ 60 mls/hr IV . [id number] [facility] Rx#:[id number] cefTRIAXone 1 gm In 50 Sodium Chloride 0.9% 50 ml @ 100 mls/hr IVPB Q24HR [facility] Rx#:[id number] metroNIDAZOLE-NS PMX 500 100 100 mg In Saline 1 100ml.bag @ 100 mls/hr IVPB Q8HR [facility] Rx#:[id number] Oral 0 100 Output: Urine/Stool Mix 1 Other: # Voids 1 1 # Bowel Movements 1 1 Weight 85.275 kg 12/27/19 05:49 12/27/19 05:49 EKG Interpretations (text) EKG shows a sinus tachycardia Assessment and Plan Plan: Assessment and plan #1 sepsis, possibly secondary to acute sigmoid diverticulitis #2 renal mass #3 abnormality in troponin, cannot completely rule out an acute coronary event, we will maximize the patient's medical therapy #4 acute on chronic renal failure #5 hypertension #6 history of nicotine dependence Plan We will obtain an echocardiogram with Doppler study. Continue baby aspirin daily. Continue beta caren 12-1/2 mg one tablet by mouth twice a day. Con servative medical therapy. Further recommendations to follow. DNP note has been reviewed, I agree with a documented findings and plan of care. Patient was seen and examined.
--- NOTE | 2019-12-27 12:52 | P.PN ---
Subjective Patient is admitted for from acute otitis media his been antibiotics symptoms improved abdominal pain improved. Patient has elevated troponins without any chest pain, probably valid the patient nondistended with myocardial infarction cannot be ruled out patient is not on heparin though patient has a renal mass as well. Patient has chronic kidney disease creatinine is at her visit his baseline present creatinine 1.58 came down to from 1.79. Patient troponin is 3.9 cardiology evaluated the patient. Constitutional: Denied any fatigue denied any fever. Cardio vascular: denied any chest pain, palpitations Gastrointestinal denied any nausea vomiting Pulmonary: Denied any shortness of breath cough Neurologic denied any new focal deficits All inpatient medications were reviewed and appropriate changes in these medications as dictated in the interval history and assessment and plan. Objective - Vital Signs Vital signs: Vital Signs Temp 98.1 F 12/27/19 08:00 Pulse 90 12/27/19 12:00 Resp 16 12/26/19 22:35 BP 110/75 12/27/19 12:00 Pulse Ox 99 12/27/19 12:00 Intake & Output 12/26/19 12/27/19 12/27/19 18:59 06:59 18:59 Intake Total 760 250 Output Total 1 Balance 759 250 Weight 85.275 kg Intake: Intake, IV Titration 760 150 Amount Sodium Chloride 0.9% 1, 660 000 ml @ 60 mls/hr IV . [id number] [facility] Rx#:[id number] cefTRIAXone 1 gm In 50 Sodium Chloride 0.9% 50 ml @ 100 mls/hr IVPB Q24HR [facility] Rx#:[id number] metroNIDAZOLE-NS PMX 500 100 100 mg In Saline 1 100ml.bag @ 100 mls/hr IVPB Q8HR [facility] Rx#:[id number] Oral 0 100 Output: Urine/Stool Mix 1 Other: # Voids 1 # Bowel Movements 1 1 - Exam PHYSICAL EXAMINATION: GENERAL: The patient is alert and oriented x3, not in any acute distress. Well developed, well nourished. HEENT: Pupils are round and equally reacting to light. EOMI. No scleral icterus. No conjunctival pallor. Normocephalic, atraumatic. No pharyngeal erythema. No thyromegaly. CARDIOVASCULAR: S1 and S2 present. No murmurs, rubs, or gallops. PULMONARY: Chest is clear to auscultation, no wheezing or crackles. ABDOMEN: Soft, nontender, nondistended, normoactive bowel sounds. No palpable organomegaly. MUSCULOSKELETAL: No joint swelling or deformity. EXTREMITIES: No cyanosis, clubbing, or pedal edema. NEUROLOGICAL: Gross neurological examination did not reveal any focal deficits. SKIN: No rashes. - Labs CBC & Chem 7: 12/27/19 05:49 12/27/19 05:49 Labs: Abnormal Lab Results - Last 24 Hours (Table) 12/26/19 12/26/19 12/27/19 Range/Units 06:16 23:20 05:49 RBC 3.38 L (4.30-5.90) m/uL Hgb 10.5 L (13.0-17.5) gm/dL Hct 33.8 L (39.0-53.0) % MCV 100.2 H (80.0-100.0) fL Plt Count 147 L (150-450) k/uL Neutrophils # 9.4 H (1.3-7.7) k/uL Lymphocytes # 0.4 L (1.0-4.8) k/uL Chloride (98-107) mmol/L Carbon Dioxide (22-30) mmol/L BUN (9-20) mg/dL Creatinine (0.66-1.25) mg/dL Glucose (74-99) mg/dL Calcium (8.4-10.2) mg/dL Troponin I 1.850 H* 3.950 H* (0.000-0.034) ng/mL 12/27/19 12/27/19 Range/Units 05:49 05:49 RBC (4.30-5.90) m/uL Hgb (13.0-17.5) gm/dL Hct (39.0-53.0) % MCV (80.0-100.0) fL Plt Count (150-450) k/uL Neutrophils # (1.3-7.7) k/uL Lymphocytes # (1.0-4.8) k/uL Chloride 112 H (98-107) mmol/L Carbon Dioxide 20 L (22-30) mmol/L BUN 34 H (9-20) mg/dL Creatinine 1.58 H (0.66-1.25) mg/dL Glucose 108 H (74-99) mg/dL Calcium 7.4 L (8.4-10.2) mg/dL Troponin I 3.910 H* (0.000-0.034) ng/mL Microbiology - Last 24 Hours (Table) 12/25/19 17:34 Blood Culture - Preliminary Blood No Growth after 24 hours Assessment and Plan Plan: -Sepsis secondary to sigmoid aortic colitis: Continue with present antibiotics that is metritis: Rocephin Possibility of for non-ST elevation myocardial infarction which cannot be ruled out: Cardiology valid the patient troponin elevation can be from sepsis itself. 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
--- NOTE | 2019-12-27 13:21 | P.GSCN ---
History of Present Illness Consult date: 12/27/19 History of present illness: This is an 89-year-old gentleman who is in the hospital with acute diverticulitis. He had a computed tomography scan of the abdomen confirmed a mean this. On the computed tomography scan of the abdomen he was identified to have bilateral renal cysts but in the upper medial portion of the right kidney there is a 4.5 cm lesion that was concerning for a solid mass. We are asked see the patient. Urologically the patient had a computed tomography scan 2016 identifying the same lesion but smaller. Both CAT scans were done without contrast. The Hounsfield units of the lesion are between 20 and 30. The patient has no urologic history. He denies problems urinating. There's been no pain in the flank. He is aware that there was a lesion there but apparently was being followed. There is no history of hematuria. There is no history of trauma. Review of Systems All systems: negative - Constitutional Denies fever, Denies weight loss - EENT Eyes: denies blurred vision Ears, nose, mouth and throat: Denies dysphagia - Cardiovascular Denies chest pain, Denies shortness of breath - Respiratory Denies cough, Denies 7 - Gastrointestinal Reports as per HPI - Genitourinary Denies dysuria, Denies hematuria - Integumentary Denies rash, Denies unusual bruising - Neurological Denies headaches, Denies syncope - Hematologic/Lymphatic Denies easy bleeding, Denies easy bruising Past Medical History Past Medical History: Hypertension Additional Past Medical History / Comment(s): Melanoma removed from R side of trunk, past fracture L wrist, hemorrhoids SBO History of Any Multi-Drug Resistant Organisms: None Reported Past Surgical History: Hernia Repair Additional Past Surgical History / Comment(s): umbilical hernia repair, colonoscopies x 2-normal, melanoma removed R side of trunk. bowel resection Past Anesthesia/Blood Transfusion Reactions: No Reported Reaction Past Psychological History: No Psychological Hx Reported Additional Psychological History / Comment(s): Pt resides alone. He uses no assistive device. He drives. Smoking Status: Former smoker Past Alcohol Use History: Occasional Past Drug Use History: None Reported - Past Family History Father Additional Family Medical History / Comment(s): Father had heart problems. He at the age of 57yrs. Mother Family Medical History: Cancer Additional Family Medical History / Comment(s): Mother of bowel cancer at the age of 89yrs old. Medications and Allergies Home Medications Medication Instructions Recorded Confirmed Type Aspirin 81 mg PO DAILY 03/20/16 12/26/19 History EPINEPHrine (Auto Inject) [Epipen] 0.3 mg IM ONCE PRN 03/20/16 12/26/19 History Enalapril [Vasotec] 10 mg PO DAILY 03/20/16 12/26/19 History Allergies Allergy/AdvReac Type Severity Reaction Status Date / Time bee pollen Allergy Anaphylaxis Verified 12/26/19 12:15 honey Allergy Rash/Hives Verified 12/26/19 12:15 venom-honey bee Allergy Anaphylaxis Verified 12/26/19 12:15 [bee venom (honey bee)] venom-wasp [wasp venom] Allergy Anaphylaxis Verified 12/26/19 12:15 Surgical - Exam Vital Signs Temp Pulse Resp BP Pulse Ox 101.3 F H 122 H 18 99/64 96 12/25/19 17:03 12/25/19 17:03 12/25/19 17:03 12/25/19 17:03 12/25/19 17:03 - General well developed, well nourished, no distress - Eyes PERRL - ENT no hearing loss - Neck no masses - Respiratory normal expansion, normal respiratory effort - Cardiovascular Rhythm: regular - Abdomen Abdomen: soft, non tender - Genitourinary normal penis with no external lesions, testicles present - Integumentary no rash - Musculoskeletal normal posture - Psychiatric oriented to time, oriented to person, oriented to place, speech is normal, memory intact Results - Labs 12/27/19 05:49 12/27/19 05:49 Abnormal Lab Results - Last 24 Hours (Table) 12/26/19 12/26/19 12/27/19 Range/Units 06:16 23:20 05:49 RBC 3.38 L (4.30-5.90) m/uL Hgb 10.5 L (13.0-17.5) gm/dL Hct 33.8 L (39.0-53.0) % MCV 100.2 H (80.0-100.0) fL Plt Count 147 L (150-450) k/uL Neutrophils # 9.4 H (1.3-7.7) k/uL Lymphocytes # 0.4 L (1.0-4.8) k/uL Chloride (98-107) mmol/L Carbon Dioxide (22-30) mmol/L BUN (9-20) mg/dL Creatinine (0.66-1.25) mg/dL Glucose (74-99) mg/dL Calcium (8.4-10.2) mg/dL Troponin I 1.850 H* 3.950 H* (0.000-0.034) ng/mL 12/27/19 12/27/19 Range/Units 05:49 05:49 RBC (4.30-5.90) m/uL Hgb (13.0-17.5) gm/dL Hct (39.0-53.0) % MCV (80.0-100.0) fL Plt Count (150-450) k/uL Neutrophils # (1.3-7.7) k/uL Lymphocytes # (1.0-4.8) k/uL Chloride 112 H (98-107) mmol/L Carbon Dioxide 20 L (22-30) mmol/L BUN 34 H (9-20) mg/dL Creatinine 1.58 H (0.66-1.25) mg/dL Glucose 108 H (74-99) mg/dL Calcium 7.4 L (8.4-10.2) mg/dL Troponin I 3.910 H* (0.000-0.034) ng/mL Microbiology - Last 24 Hours (Table) 12/25/19 17:34 Blood Culture - Preliminary Blood No Growth after 24 hours Diabetes panel 12/27/19 Range/Units 05:49 Sodium 141 (137-145) mmol/L Potassium 3.7 (3.5-5.1) mmol/L Chloride 112 H (98-107) mmol/L Carbon Dioxide 20 L (22-30) mmol/L BUN 34 H (9-20) mg/dL Creatinine 1.58 H (0.66-1.25) mg/dL Glucose 108 H (74-99) mg/dL Calcium 7.4 L (8.4-10.2) mg/dL Calcium panel 12/27/19 Range/Units 05:49 Calcium 7.4 L (8.4-10.2) mg/dL Pituitary panel 12/27/19 Range/Units 05:49 Sodium 141 (137-145) mmol/L Potassium 3.7 (3.5-5.1) mmol/L Chloride 112 H (98-107) mmol/L Carbon Dioxide 20 L (22-30) mmol/L BUN 34 H (9-20) mg/dL Creatinine 1.58 H (0.66-1.25) mg/dL Glucose 108 H (74-99) mg/dL Calcium 7.4 L (8.4-10.2) mg/dL Adrenal panel 12/27/19 Range/Units 05:49 Sodium 141 (137-145) mmol/L Potassium 3.7 (3.5-5.1) mmol/L Chloride 112 H (98-107) mmol/L Carbon Dioxide 20 L (22-30) mmol/L BUN 34 H (9-20) mg/dL Creatinine 1.58 H (0.66-1.25) mg/dL Glucose 108 H (74-99) mg/dL Calcium 7.4 L (8.4-10.2) mg/dL - Imaging CT scan - abdomen: report reviewed, image reviewed CT scan - pelvis: report reviewed, image reviewed Assessment and Plan Assessment: Impression: Right renal mass rule out carcinoma. Diverticulitis. Recommendations: I will order an ultrasound to determine whether this is solid or fluid-filled. If it is solid then I will have a discussion with the patient again about treatment options. We discussed this this morning. 89 the question always exists is of treatment worse than the disease. The patient does have renal insufficiency which complicates the issue. The location of the tumor is medial upper pole. This would make both less invasive treatments such as cryosurgery or microwave more difficult. Partial nephrectomy also be more difficult. Again in the ultrasound was further recommendations. I'll follow this patient.
--- NOTE | 2019-12-27 13:46 | ECHOF ---
Referral Reason:possible AR MEASUREMENTS -------- HEIGHT: 177.8 cm WEIGHT: 85.3 kg BP: 131/71 RVIDd: 2.8 cm (< 3.3) IVSd: 1.3 cm (0.6 - 1.1) LVIDd: 4.7 cm (3.9 - 5.3) LVPWd: 1.2 cm (0.6 - 1.1) IVSs: 1.5 cm LVIDs: 4.3 cm LVPWs: 1.3 cm Ao Diam: 3.3 cm (2.0 - 3.7) AV Cusp: 0.9 cm (1.5 - 2.6) LA Diam: 3.2 cm (2.7 - 3.8) AV maxP.84 mmHg AV meanP.12 mmHg RAP: 5.00 mmHg RVSP: 21.76 mmHg FINDINGS -------- Atrial fibrillation. This was a technically difficult study with suboptimal views. The left ventricular size is normal. There is mild concentric left ventricular hypertrophy. There is severe global hypokinesis of LV . Overall left ventricular systolic function is moderate-severe ly impaired with, an EF between 30 - 35 %. Left ventricular fillimg pressure cannot be estimated du e to Atrial fibrillation. The right ventricle is normal in size. The left atrial size is normal. The right atrial size is normal. Lumason used Unable to visualize the septum. Aortic valve is trileaflet and is moderately thickened. There is mild aortic stenosis present. Pe ak/mean gradient across the Aortic Valve is 13.84mmHg / 8.12mmHg. The mitral valve is normal. The mitral valve leaflets are mildly thickened. Mild mitral regurgita tion is present. The tricuspid valve appears structurally normal. Mild tricuspid regurgitation present. Right vent ricular systolic pressure is normal at < 35 mmHg. There is no pulmonic regurgitation present. The aortic root size is normal. IVC Not well visulized. There is a small, generalized pericardial effusion present. CONCLUSIONS -------- 1. Atrial fibrillation. 2. This was a technically difficult study with suboptimal views. 3. The left ventricular size is normal. 4. There is mild concentric left ventricular hypertrophy. 5. There is severe global hypokinesis of LV . 6. Overall left ventricular systolic function is moderate-severely impaired with, an EF between 30 - 35 %. 7. Left ventricular fillimg pressure cannot be estimated due to Atrial fibrillation. 8. The right ventricle is normal in size. 9. The left atrial size is normal. 10. The right atrial size is normal. 11. Lumason used 12. Unable to visualize the septum. 13. Aortic valve is trileaflet and is moderately thickened. 14. There is mild aortic stenosis present. 15. Peak/mean gradient across the Aortic Valve is 13.84mmHg / 8.12mmHg. 16. The mitral valve is normal. 17. The mitral valve leaflets are mildly thickened. 18. Mild mitral regurgitation is present. 19. The tricuspid valve appears structurally normal. 20. Mild tricuspid regurgitation present. 21. Right ventricular systolic pressure is normal at < 35 mmHg. 22. There is no pulmonic regurgitation present. 23. The aortic root size is normal. 24. IVC Not well visulized. 25. There is a small, generalized pericardial effusion present. BUSINESS ACCOUNT EXECUTIVE: Latoya Mendenhall RDCS
[2019-12-27] MEDS: SODIUM CHLORIDE 0.9% 1,000 ML IV SCH (18:10)
[2019-12-27] MEDS: METOPROLOL TARTRATE 25 MG TAB PO SCH ×2 (18:12→22:43)
[2019-12-28] MEDS: SODIUM CHLORIDE 0.9% 1,000 ML IV SCH (05:26)
[2019-12-28] MEDS: PANTOPRAZOLE 40 MG/10 ML VIAL IVP SCH (10:10)
[2019-12-28] MEDS: METOPROLOL TARTRATE 25 MG TAB PO SCH (10:10)
[2019-12-28] MEDS: ASPIRIN 81 MG PO SCH (10:10)
[2019-12-28] MEDS: metroNIDAZOLE-NS PMX 500 MG in SALINE 1 100ML.BAG IVPB SCH ×3 (10:11→23:31)
--- NOTE | 2019-12-28 11:39 | P.PN ---
Subjective Progress Note Date: 12/28/19 his is an 89-year-old gentleman with a documented history of diverticulosis, hypertension, a contained dependence, who presented to the emergency room with symptoms of generalized weakness, abdominal discomfort, and diarrhea. 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 EKG on presentation here showed a sinus tachycardia, at the time of my examination patient is currently in atrial fibrillation. Temperature on admission 101.3, heart rate 120s 130s, blood pressure 99/60, 90% on room air. White blood cell count 17.3, hemoglobin 12.7, platelet count 172. Sodium 135, BUN 40, creatinine 1.9, lactic acid 3.6, down to 1.2. Romero virus not detected. Troponins 1.8, 3.9, 3.9. Because of the abnormality in troponin a cardiology consultation has been requested. Patient denies having any chest discomfort or breathing difficulty. 12/28/2019 Patient was seen and examined this morning, overall feeling well. Blood pressure 110/70, heart rate 106. Echocardiogram with Doppler study revealed an ejection fraction of 30-35%. We will increase his dose of beta caren, add an SERGEI inhibitor and Aldactone, monitoring the creatinine closely. Creatinine today is 1.5. In addition to the baby aspirin and we will also add Plavix to his medication regime. Objective - Vital Signs Vital signs: Vital Signs Temp 97.8 F 12/28/19 08:00 Pulse 91 12/28/19 08:00 Resp 18 12/28/19 04:12 BP 133/81 12/28/19 08:00 Pulse Ox 96 12/28/19 08:00 Intake & Output 12/27/19 12/28/19 12/28/19 18:59 06:59 18:59 Intake Total 450 1220 230 Balance 450 1220 230 Weight 76 kg Intake: Intake, IV Titration 250 860 Amount Sodium Chloride 0.9% 1, 660 000 ml @ 60 mls/hr IV . [id number] [facility] Rx#:[id number] cefTRIAXone 1 gm In 50 Sodium Chloride 0.9% 50 ml @ 100 mls/hr IVPB Q24HR [facility] Rx#:[id number] metroNIDAZOLE-NS PMX 500 200 200 mg In Saline 1 100ml.bag @ 100 mls/hr IVPB Q8HR [facility] Rx#:[id number] Oral 200 360 230 Other: # Voids 2 # Bowel Movements 1 - Exam PHYSICAL EXAMINATION: GENERAL: 89-year-old gentleman in no acute distress at the time of my examination HEENT: Head is atraumatic, normocephalic. Pupils equal, round. Sclera anicteric. Conjunctiva are clear. Mucous membranes of the mouth are moist. Neck is supple. There is no elevated jugular venous pressure. No carotid bruit is heard. HEART EXAMINATION: Heart S1, S2 tachycardic . No murmur or gallop heard. CHEST EXAMINATION: Lungs are clear to auscultation and precussion. No chest wall tenderness is noted on palpation or with deep breathing. ABDOMEN: Soft, nontender. Bowel sounds are heard. No organomegaly noted. EXTREMITIES: 2+ peripheral pulses with no evidence of peripheral edema and no calf tenderness noted. NEUROLOGIC patient is awake, alert and oriented 2 . - Labs CBC & Chem 7: 12/27/19 05:49 12/27/19 05:49 Labs: Microbiology - Last 24 Hours (Table) 12/25/19 17:34 Blood Culture - Preliminary Blood No Growth after 48 hours Assessment and Plan Plan: Assessment and plan #1 sepsis, possibly secondary to acute sigmoid diverticulitis #2 renal mass #3 abnormality in troponin, representing a non-Q-wave myocardial infarction echocardiogram with Doppler study revealed an ejection fraction of 30-35% #4 acute on chronic renal failure #5 hypertension #6 history of nicotine dependence Plan We will increase the dose of beta caren, add an SERGEI inhibitor and Aldactone to the patient's medication regime. We will also add Plavix 75 mg daily to take along with the 81 mg of aspirin. DNP note has been reviewed, I agree with a documented findings and plan of care. Patient was seen and examined.
--- NOTE | 2019-12-28 12:14 | P.PN ---
Subjective Patient is admitted for from acute otitis media his been antibiotics symptoms improved abdominal pain improved. Patient has elevated troponins without any chest pain, probably valid the patient nondistended with myocardial infarction cannot be ruled out patient is not on heparin though patient has a renal mass as well. Patient has chronic kidney disease creatinine is at her visit his baseline present creatinine 1.58 came down to from 1.79. Patient troponin is 3.9 cardiology evaluated the patient. 12/28/2019 patient is clinically doing well. His EF is 30-35% although patient is not in heart failure exacerbation at this time IV fluids will be discontinued patient was started on low-dose of an SERGEI inhibitor and Aldactone. Cardiology is recommending monitoring one more day and not tender corneal cardiac catheterization at this time medical management is the plan at this time and patient's creatinine is 1.5 because of which elicits absolutely required probably not a good idea to have a cardiac catheterization. Constitutional: Denied any fatigue denied any fever. Cardio vascular: denied any chest pain, palpitations Gastrointestinal denied any nausea vomiting Pulmonary: Denied any shortness of breath cough Neurologic denied any new focal deficits All inpatient medications were reviewed and appropriate changes in these medications as dictated in the interval history and assessment and plan. Objective - Vital Signs Vital signs: Vital Signs Temp 97.8 F 12/28/19 08:00 Pulse 91 12/28/19 08:00 Resp 18 12/28/19 04:12 BP 133/81 12/28/19 08:00 Pulse Ox 96 12/28/19 08:00 Intake & Output 12/27/19 12/28/19 12/28/19 18:59 06:59 18:59 Intake Total 450 1220 230 Balance 450 1220 230 Weight 76 kg Intake: Intake, IV Titration 250 860 Amount Sodium Chloride 0.9% 1, 660 000 ml @ 60 mls/hr IV . [id number] [facility] Rx#:[id number] cefTRIAXone 1 gm In 50 Sodium Chloride 0.9% 50 ml @ 100 mls/hr IVPB Q24HR [facility] Rx#:[id number] metroNIDAZOLE-NS PMX 500 200 200 mg In Saline 1 100ml.bag @ 100 mls/hr IVPB Q8HR [facility] Rx#:[id number] Oral 200 360 230 Other: # Voids 2 # Bowel Movements 1 - Exam PHYSICAL EXAMINATION: GENERAL: The patient is alert and oriented x3, not in any acute distress. Well developed, well nourished. HEENT: Pupils are round and equally reacting to light. EOMI. No scleral icterus. No conjunctival pallor. Normocephalic, atraumatic. No pharyngeal erythema. No thyromegaly. CARDIOVASCULAR: S1 and S2 present. No murmurs, rubs, or gallops. PULMONARY: Chest is clear to auscultation, no wheezing or crackles. ABDOMEN: Soft, nontender, nondistended, normoactive bowel sounds. No palpable organomegaly. MUSCULOSKELETAL: No joint swelling or deformity. EXTREMITIES: No cyanosis, clubbing, or pedal edema. NEUROLOGICAL: Gross neurological examination did not reveal any focal deficits. SKIN: No rashes. - Labs CBC & Chem 7: 12/27/19 05:49 12/27/19 05:49 Labs: Microbiology - Last 24 Hours (Table) 12/25/19 17:34 Blood Culture - Preliminary Blood No Growth after 48 hours Assessment and Plan Plan: -Sepsis secondary to sigmoid aortic colitis: Continue with present antibiotics that is Rocephin and metronidazole patient has significant clinical improvement patient is clinically doing well at this time. Possibility of for non-ST elevation myocardial infarction which cannot be ruled out: Cardiology evaluated the patientthe patient troponin elevation can be from sepsis itself.and is not in acute heart failure exacerbation. This can need IV fluids and patient was started on Aldactone and lisinopril for heart failure -Possible acute systolic dysfunction without any acute pulmonary edema or heart failure exacerbation patient had EF of around 30- 35%. 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
--- NOTE | 2019-12-28 13:07 | US ---
EXAMINATION TYPE: US kidneys/renal and bladder DATE OF EXAM: 12/28/2019 COMPARISON: CT dated 12/25/2019 CLINICAL HISTORY: assess medial right renal mass. EXAM MEASUREMENTS: Right Kidney: 11.2 x 4.8 x 4.9 cm Left Kidney: 10.7 x 4.5 x 4.5 cm Right Kidney: multiple cysts largest measuring 6.5 x 5.1 x 5.9cm, solid mass measuring 4.1 x 2.7 x 2. 9cm Left Kidney: upper pole cyst measuring 2.0 x 1.9 x 1.8cm Bladder: not seen, not distended Cortical renal thinning is seen bilaterally. IMPRESSION: 1. Solid right upper pole renal mass measuring 4.1 cm that should be considered neoplasm until proven otherwise. Full evaluation with either enhanced MR abdomen or three-phase CT are recommended. If the patient cannot undergo contrast enhanced imaging biopsy should be considered. 2. Cortical thinning of chronic medical renal disease and bilateral renal cysts the largest measuring 6.5 cm on the right.
[2019-12-28] MEDS: SPIRONOLACTONE 25 MG TAB PO SCH (13:11)
--- NOTE | 2019-12-28 14:02 | P.PN ---
Subjective Progress Note Date: 12/28/19 Principal diagnosis: Diverticulitis Patient without new complaints. Says his pain is improved. He is hungry. Heart rate slightly elevated. Beta caren was increased. Diet was also advanced. Objective - Vital Signs Vital signs: Vital Signs Temp 97.8 F 12/28/19 08:00 Pulse 91 12/28/19 08:00 Resp 18 12/28/19 04:12 BP 133/81 12/28/19 08:00 Pulse Ox 96 12/28/19 08:00 Intake & Output 12/27/19 12/28/19 12/28/19 18:59 06:59 18:59 Intake Total 450 1220 230 Balance 450 1220 230 Weight 76 kg Intake: Intake, IV Titration 250 860 Amount Sodium Chloride 0.9% 1, 660 000 ml @ 60 mls/hr IV . [id number] [facility] Rx#:[id number] cefTRIAXone 1 gm In 50 Sodium Chloride 0.9% 50 ml @ 100 mls/hr IVPB Q24HR [facility] Rx#:[id number] metroNIDAZOLE-NS PMX 500 200 200 mg In Saline 1 100ml.bag @ 100 mls/hr IVPB Q8HR [facility] Rx#:[id number] Oral 200 360 230 Other: # Voids 2 # Bowel Movements 1 - Exam Abdomen: Soft, nondistended, mild left lower quadrant tenderness certainly improved - Labs CBC & Chem 7: 12/27/19 05:49 12/27/19 05:49 Labs: Microbiology - Last 24 Hours (Table) 12/25/19 17:34 Blood Culture - Preliminary Blood No Growth after 48 hours Assessment and Plan (1) Diverticulitis Narrative/Plan: Patient overall doing fairly well. Agree with advancing diet. Continue antibiotics. Possible discharge tomorrow. Appreciate urology evaluation. Current Visit: Yes Status: Acute Code(s): K57.92 - DVTRCLI OF INTEST, PART UNSP, W/O PERF OR ABSCESS W/O BLEED SNOMED Code(s): 223637918
[2019-12-28] MEDS: METOPROLOL TARTRATE 50 MG TAB PO SCH (20:03)
[2019-12-29 06:28] LABS: Calcium 7.4 mg/dL (8.4-10.2); Potassium 3.6 mmol/L (3.5-5.1)
[2019-12-29] MEDS: PANTOPRAZOLE 40 MG/10 ML VIAL IVP SCH (08:45)
[2019-12-29] MEDS: ASPIRIN 81 MG PO SCH (08:48)
[2019-12-29] MEDS: SPIRONOLACTONE 25 MG TAB PO SCH (08:48)
[2019-12-29] MEDS: LISINOPRIL 2.5 MG TAB PO SCH (08:48)
[2019-12-29] MEDS: METOPROLOL TARTRATE 50 MG TAB PO SCH ×2 (08:48→20:35)
[2019-12-29] MEDS: metroNIDAZOLE-NS PMX 500 MG in SALINE 1 100ML.BAG IVPB SCH ×3 (08:51→23:13)
--- NOTE | 2019-12-29 11:39 | P.PN ---
Subjective Progress Note Date: 12/29/19 his is an 89-year-old gentleman with a documented history of diverticulosis, hypertension, a contained dependence, who presented to the emergency room with symptoms of generalized weakness, abdominal discomfort, and diarrhea. 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 EKG on presentation here showed a sinus tachycardia, at the time of my examination patient is currently in atrial fibrillation. Temperature on admission 101.3, heart rate 120s 130s, blood pressure 99/60, 90% on room air. White blood cell count 17.3, hemoglobin 12.7, platelet count 172. Sodium 135, BUN 40, creatinine 1.9, lactic acid 3.6, down to 1.2. Romero virus not detected. Troponins 1.8, 3.9, 3.9. Because of the abnormality in troponin a cardiology consultation has been requested. Patient denies having any chest discomfort or breathing difficulty. 12/28/2019 Patient was seen and examined this morning, overall feeling well. Blood pressure 110/70, heart rate 106. Echocardiogram with Doppler study revealed an ejection fraction of 30-35%. We will increase his dose of beta caren, add an SERGEI inhibitor and Aldactone, monitoring the creatinine closely. Creatinine today is 1.5. In addition to the baby aspirin and we will also add Plavix to his medication regime. 12/29/2019 Patient was seen and examined this morning, doing well, up ambulating in his room without any difficulty. Denies any chest discomfort in his breathing is stable. Ultrasound of the abdomen and bladder revealed a solid right upper pole renal mass measuring 4.1 cm that should be considered neoplasm until proven ot herwise. Bilateral renal cyst also noted, the largest measuring 6.5. Blood pressure 144/80 with a heart rate of 90, 97% on room air. Sodium 138, potassium 3.6, BUN 35, creatinine 1.4. Objective - Vital Signs Vital signs: Vital Signs Temp 98 F 12/29/19 08:00 Pulse 97 12/29/19 08:00 Resp 18 12/29/19 08:00 BP 144/85 12/29/19 08:00 Pulse Ox 97 12/29/19 08:00 Intake & Output 12/28/19 12/29/19 12/29/19 18:59 06:59 18:59 Intake Total 1130 100 476 Output Total 600 180 Balance 530 -80 476 Weight 88.5 kg Intake: Intake, IV Titration 570 100 Amount Sodium Chloride 0.9% 1, 420 000 ml @ 60 mls/hr IV . [id number] [facility] Rx#:[id number] cefTRIAXone 1 gm In 50 Sodium Chloride 0.9% 50 ml @ 100 mls/hr IVPB Q24HR [facility] Rx#:[id number] metroNIDAZOLE-NS PMX 500 100 100 mg In Saline 1 100ml.bag @ 100 mls/hr IVPB Q8HR [facility] Rx#:[id number] Oral 560 476 Output: Urine 600 180 Other: Voiding Method Toilet Toilet # Voids 2 - Exam PHYSICAL EXAMINATION: GENERAL: 89-year-old gentleman in no acute distress at the time of my examination HEENT: Head is atraumatic, normocephalic. Pupils equal, round. Sclera anicteric. Conjunctiva are clear. Mucous membranes of the mouth are moist. Neck is supple. There is no elevated jugular venous pressure. No carotid bruit is heard. HEART EXAMINATION: Heart S1, S2 tachycardic . No murmur or gallop heard. CHEST EXAMINATION: Lungs are clear to auscultation and precussion. No chest wall tenderness is noted on palpation or with deep breathing. ABDOMEN: Soft, nontender. Bowel sounds are heard. No organomegaly noted. EXTREMITIES: 2+ peripheral pulses with no evidence of peripheral edema and no calf tenderness noted. NEUROLOGIC patient is awake, alert and oriented 2 . - Labs CBC & Chem 7: 12/27/19 05:49 12/29/19 05:57 Labs: Abnormal Lab Results - Last 24 Hours (Table) 12/29/19 Range/Units 05:57 Chloride 113 H (98-107) mmol/L Carbon Dioxide 16 L (22-30) mmol/L BUN 35 H (9-20) mg/dL Creatinine 1.49 H (0.66-1.25) mg/dL Glucose 115 H (74-99) mg/dL Calcium 7.4 L (8.4-10.2) mg/dL Microbiology - Last 24 Hours (Table) 12/25/19 17:34 Blood Culture - Preliminary Blood No Growth after 72 hours Assessment and Plan Plan: Assessment and plan #1 sepsis, possibly secondary to acute sigmoid diverticulitis #2 renal mass #3 abnormality in troponin, representing a non-Q-wave myocardial infarction echocardiogram with Doppler study revealed an ejection fraction of 30-35% #4 acute on chronic renal failure #5 hypertension #6 history of nicotine dependence Plan From cardiology's perspective, we will recommend to continue this patient on his current medications. He may be able to be discharged home, follow-up appointment with Dr. Akins in the office post discharge. DNP note has been reviewed, I agree with a documented findings and plan of care. Patient was seen and examined.
--- NOTE | 2019-12-29 11:45 | P.PN ---
Subjective Progress Note Date: 12/29/19 The mass in the patient's right kidney is solid consistent with a renal cell carcinoma. After he heals from his diverticulitis we'll have to make a decision as to how we want to treat this including observation versus surgical management. The patient will deliberate on this. Objective - Vital Signs Vital signs: Vital Signs Temp 98 F 12/29/19 08:00 Pulse 97 12/29/19 08:00 Resp 18 12/29/19 08:00 BP 144/85 12/29/19 08:00 Pulse Ox 97 12/29/19 08:00 Intake & Output 12/28/19 12/29/19 12/29/19 18:59 06:59 18:59 Intake Total 1130 100 476 Output Total 600 180 Balance 530 -80 476 Weight 88.5 kg Intake: Intake, IV Titration 570 100 Amount Sodium Chloride 0.9% 1, 420 000 ml @ 60 mls/hr IV . [id number] [facility] Rx#:[id number] cefTRIAXone 1 gm In 50 Sodium Chloride 0.9% 50 ml @ 100 mls/hr IVPB Q24HR [facility] Rx#:[id number] metroNIDAZOLE-NS PMX 500 100 100 mg In Saline 1 100ml.bag @ 100 mls/hr IVPB Q8HR [facility] Rx#:[id number] Oral 560 476 Output: Urine 600 180 Other: Voiding Method Toilet Toilet # Voids 2 - Labs CBC & Chem 7: 12/27/19 05:49 12/29/19 05:57 Labs: Abnormal Lab Results - Last 24 Hours (Table) 12/29/19 Range/Units 05:57 Chloride 113 H (98-107) mmol/L Carbon Dioxide 16 L (22-30) mmol/L BUN 35 H (9-20) mg/dL Creatinine 1.49 H (0.66-1.25) mg/dL Glucose 115 H (74-99) mg/dL Calcium 7.4 L (8.4-10.2) mg/dL Microbiology - Last 24 Hours (Table) 12/25/19 17:34 Blood Culture - Preliminary Blood No Growth after 72 hours
[2019-12-29 12:37] LABS: Glucose,Whole Blood 109 mg/dL (75-99)
--- NOTE | 2019-12-29 13:18 | P.PN ---
Subjective Progress Note Date: 12/29/19 This is an 89-year-old gentleman with history of diverticulosis, small bowel obstruction secondary to adhesions with exploratory laparotomy with subsequent repeat laparotomy with closure of fascial dehiscence, inguinal hernia repair, hypertension, melanoma, nicotine dependence and multiple other medical issues presented to the ER with complaints of increasing generalized weakness, left- sided abdominal pain,nausea, no emesis, diarrhea accompanied by disorientation. Denied fever,chills or cough. Denies congestion. Denies chest pain, palpitations or shortness of breath. Denies hemoptysis, hematochezia, melena, hematuria. Denies lightheadedness, dizziness or focal deficits. 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 EKG point sinus tachycardia, troponin pending. On admission, febrile with temperature up 101.3, tachycardic heart rate 122, hypotensive, blood pressure 99/64, respiratory rate 18, maintaining O2 sats in the 90s on room air. WBC 17.3, hemoglobin 12.7, platelets 172, INR 1, sodium 135, BUN 40, creatinine 1.96. Lactic acid 3.6, received IV fluid hydration ,decreased to 1.2. Total bili mildly elevated at 1.6, LFTs within normal limits. UA reporting blood. Coronavirus not detected. IV antibiotics of Rocephin and Flagyl initiated in addition to IV fluid hydration. Surgery and interventional radiology consulted. 12/29/19 on admission troponins pending, returning at 1.85, 3.95, 3.91 .Evaluated by cardiology with recommendations noted. renal ultrasound performed yesterday reporting systolic right upper pole renal mass measuring 4.1 cm, should be consider neoplasm until proven otherwise. Further evaluation being discussed between Dr. Reyes from interventional radiology and Dr. Ma, Urology. Tolerating low fat diet, reporting liquid bowel movements, positive flatus. Denies nausea or vomiting. Pain improving. T-max 100.1. CBC ordered/pending.Tachycardia currently resolved. Preliminary blood cultures no growth at 72 hours. Renal function slowly improving,1.49. Maintained on Rocephin, Flagyl. Objective - Vital Signs Vital signs: Vital Signs Temp 98 F 12/29/19 08:00 Pulse 97 12/29/19 08:00 Resp 18 12/29/19 08:00 BP 144/85 12/29/19 08:00 Pulse Ox 97 12/29/19 08:00 Intake & Output 12/28/19 12/29/19 12/29/19 18:59 06:59 18:59 Intake Total 1130 100 476 Output Total 600 180 Balance 530 -80 476 Weight 88.5 kg Intake: Intake, IV Titration 570 100 Amount Sodium Chloride 0.9% 1, 420 000 ml @ 60 mls/hr IV . [id number] [facility] Rx#:[id number] cefTRIAXone 1 gm In 50 Sodium Chloride 0.9% 50 ml @ 100 mls/hr IVPB Q24HR [facility] Rx#:[id number] metroNIDAZOLE-NS PMX 500 100 100 mg In Saline 1 100ml.bag @ 100 mls/hr IVPB Q8HR [facility] Rx#:[id number] Oral 560 476 Output: Urine 600 180 Other: Voiding Method Toilet Toilet # Voids 2 - Exam GENERAL: Well-developed elderly gentleman ,Sitting up in bed, no acute distress. HEAD: Atraumatic, normocephalic. EYES: Pupils equal, round, and reactive to light, extraocular movements intact, sclera anicteric, conjunctiva are normal. ENT: Oropharynx clear without exudates. Oral mucosa dry. NECK:Supple without lymphadenopathy or JVD. LUNGS: Breath sounds clear to auscultation bilaterally. No wheezes, rales, or rhonchi. HEART: Regular S1 and S2, tachycardic, No murmurs, rubs or gallops. ABDOMEN: Softer, diffuse tenderness,distended, hypoactive bowel sounds. No guarding, no rebound. No masses or organomegaly appreciated. EXTREMITIES: 2+ peripheral pulses. No edema, clubbing or cyanosis. No calf tenderness. NEUROLOGICAL: Pt oriented x 3. Cranial nerves II through XII grossly intact. Strength and sensation grossly intact. PSYCH: Normal mood, normal affect. SKIN: Warm, dry, intact. Normal turgor. No rashes. - Labs CBC & Chem 7: 12/27/19 05:49 12/29/19 05:57 Labs: Abnormal Lab Results - Last 24 Hours (Table) 12/29/19 Range/Units 05:57 Chloride 113 H (98-107) mmol/L Carbon Dioxide 16 L (22-30) mmol/L BUN 35 H (9-20) mg/dL Creatinine 1.49 H (0.66-1.25) mg/dL Glucose 115 H (74-99) mg/dL Calcium 7.4 L (8.4-10.2) mg/dL Microbiology - Last 24 Hours (Table) 12/25/19 17:34 Blood Culture - Preliminary Blood No Growth after 72 hours Assessment and Plan Assessment: Sepsis secondary to acute sigmoid diverticulitis in a patient with History of diverticulosis, possibly ileus, possible partial mechanical small bowel obstruction Renal mass, possibly tumor increasing in in size, possible renal cell CA Abnormal troponin, non-Q-wave ME, echo reporting EF of 30-35%, cardiology following Leukocytosis History of small bowel obstruction secondary to adhesions with exploratory laparotomy with subsequent repeat laparotomy with closure of fascial dehiscence Acute renal failure secondary to dehydration Chronic kidney disease, 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 Irregular and raised nevus in the back which is being monitored for melanoma as an outpatient History of melanoma. History of umbilical hernia repair History of extensive nicotine dependence. Plan: Continue on current medication regime ,monitoring and symptomatic treatment. Maintain Rocephin, Flagyl ,gentle IV fluid hydration. Febrile last night, CBC pending. Urology and interventional radiology currently discussing further workup of renal mass. Prognosis guarded given multiple complex medical issues. The impression and plan of care has been dictated as directed. : I performed a history and examination of this patient, discussed the same with the dictator. I agree with the dictator's note ,documented as a scribe. Any a dditional findings or plans will be noted.
--- NOTE | 2019-12-29 13:32 | P.PN ---
Subjective Progress Note Date: 12/29/19 CHIEF COMPLAINT: Abdominal pain HISTORY OF PRESENT ILLNESS: Patient examined at the bedside. Patient denies abdominal pain. Tolerating diet without nausea or vomiting. Vital signs stable. PHYSICAL EXAM: VITAL SIGNS: Reviewed. GENERAL: Well-developed in no acute distress. HEENT: No sclera icterus. Extraocular movements grossly intact. Moist buccal mucosa. Head is atraumatic, normocephalic. ABDOMEN: Soft. Nondistended. Nontender. NEUROLOGIC: Alert and oriented. Cranial nerves II through XII grossly intact. ASSESSMENT: 1. Acute sigmoid diverticulitis 2. History of small bowel obstruction with exploratory laparotomy with lysis of adhesions, February 2016 PLAN: -Continue antibiotics -Continue diet as tolerated Nurse practitioner note has been reviewed by physician. Signing provider agrees with the documented findings, assessment, and plan of care. Objective - Vital Signs Vital signs: Vital Signs Temp 98 F 12/29/19 08:00 Pulse 97 12/29/19 08:00 Resp 18 12/29/19 08:00 BP 144/85 12/29/19 08:00 Pulse Ox 97 12/29/19 08:00 Intake & Output 12/28/19 12/29/19 12/29/19 18:59 06:59 18:59 Intake Total 1130 100 476 Output Total 600 180 Balance 530 -80 476 Weight 88.5 kg Intake: Intake, IV Titration 570 100 Amount Sodium Chloride 0.9% 1, 420 000 ml @ 60 mls/hr IV . [id number] [facility] Rx#:[id number] cefTRIAXone 1 gm In 50 Sodium Chloride 0.9% 50 ml @ 100 mls/hr IVPB Q24HR [facility] Rx#:[id number] metroNIDAZOLE-NS PMX 500 100 100 mg In Saline 1 100ml.bag @ 100 mls/hr IVPB Q8HR [facility] Rx#:[id number] Oral [id number] 476 Output: Urine 600 180 Other: Voiding Method Toilet Toilet # Voids 2 - Labs CBC & Chem 7: 12/27/19 05:49 12/29/19 05:57 Labs: Abnormal Lab Results - Last 24 Hours (Table) 12/29/19 Range/Units 05:57 Chloride 113 H (98-107) mmol/L Carbon Dioxide 16 L (22-30) mmol/L BUN 35 H (9-20) mg/dL Creatinine 1.49 H (0.66-1.25) mg/dL Glucose 115 H (74-99) mg/dL Calcium 7.4 L (8.4-10.2) mg/dL Microbiology - Last 24 Hours (Table) 12/25/19 17:34 Blood Culture - Preliminary Blood No Growth after 72 hours
[2019-12-29 14:05] LABS: HGB 10.4 gm/dL (13.0-17.5); Hypochromasia Marked; MCH 33.2 pg (25.0-35.0); MCHC 31.5 g/dL (31.0-37.0); Macrocytosis Moderate; Mean Platelet Volume 10.3; Platelet Count 160 k/uL (150-450); RBC 3.14 m/uL (4.30-5.90); RDW 14.8 % (11.5-15.5); WBC 11.8 k/uL (3.8-10.6)
[2019-12-29 14:16] LABS: MCV 105.3 fL (80.0-100.0)
[2019-12-30 06:38] LABS: Basophils % (A) 0 %; Eosinophils # (A) 0.1 k/uL (0-0.7); Eosinophils % (A) 1 %; HCT 33.1 % (39.0-53.0); HGB 10.4 gm/dL (13.0-17.5); Hypochromasia Slight; Lymphocytes # (A) 0.6 k/uL (1.0-4.8); Lymphocytes % (A) 6 %; MCH 31.8 pg (25.0-35.0); MCHC 31.6 g/dL (31.0-37.0); MCV 100.7 fL (80.0-100.0); Macrocytosis Slight; Mean Platelet Volume 8.9; Monocytes # (A) 0.6 k/uL (0-1.0); Monocytes % (A) 6 %; Neutrophils # (A) 8.6 k/uL (1.3-7.7); Neutrophils % (A) 85 %; Platelet Count 216 k/uL (150-450); RBC 3.28 m/uL (4.30-5.90); RDW 14.8 % (11.5-15.5); WBC 10.1 k/uL (3.8-10.6)
[2019-12-30 06:44] LABS: Calcium 7.6 mg/dL (8.4-10.2); Potassium 3.5 mmol/L (3.5-5.1)
[2019-12-30] MEDS: METOPROLOL TARTRATE 50 MG TAB PO SCH ×2 (08:10→19:45)
[2019-12-30] MEDS: SPIRONOLACTONE 25 MG TAB PO SCH (08:10)
[2019-12-30] MEDS: LISINOPRIL 2.5 MG TAB PO SCH (08:11)
[2019-12-30] MEDS: ASPIRIN 81 MG PO SCH (08:11)
[2019-12-30] MEDS ORDERED: AMIODARONE 360 MG in DEXTROSE 5% IN WATER 200 ML IV ONE ×2 (08:19)
[2019-12-30] MEDS ORDERED: AMIODARONE 50 MG/ML 3 ML VIAL IV ONE (08:28)
[2019-12-30] MEDS ORDERED: DEXTROSE 5% IN WATER 50 ML BAG ONE (08:28)
[2019-12-30 08:41] LABS: Glucose,Whole Blood 142 mg/dL (75-99)
[2019-12-30] MEDS ORDERED: MAGNESIUM SULFATE-D5W PMX 1 GM in DEXTROSE/WATER 1 100ML.BAG IVPB ONE (09:00)
--- NOTE | 2019-12-30 09:07 | P.EN ---
Code Blue Note: Arrived to unit with patient awake and being provided with rescue breaths. Background: Patient admitted with Diverticulits with sepsis, patient had a NSETMI with max troponin 3.9, EF 30-35%. Patient noted to be in A fib with RVR on the morning of 12/29 and Amio bolus with gtt ordered by cardio Nurse was in the room when the patient went into V tach, Apparently per nursing he lost pulses they did 2-3 chest compression and he woke up. On Arrival to unit patient noted to be in A fib with RVR on the monitor. He did have again a brief run of V tach with a pulse and HR 220 on the monitor this resolved quickly. BP at that time 90/50. Labs reviewed and morning potassium 3.5, Magnesium ordered. Ordered Potassium and 1 gram magnesium replacement ordered Echo reviewed Amio administered. Patient denies chest pain, Shortness of breath, light headedness, dizziness. General: ill appearing, moderate distress, appears younger than stated age Eyes: EOMI, no lid lag, anicteric sclera Cardiovascular: S1S2 irreg tachy, no murmur, positive posterior tibial pulse bilateral, Lungs: Decreased bs bilateral, no rhonchi, no rales , no accessory muscle use Neuro: CN II-XI grossly intact, no focal neuro deficits Psych: Alert, oriented, appropriate affect DX: afib with RVR, V tach EKG reviewed without significant ST segment elevation CXR ordered Amio gtt Potassium and Mg replacements Dr. Mccord notified Dr. Bradshaw notified Nursing notifying family Code status: Discussed with patient and he confirms that he would like to be full code and is okay with intubation A total of 35 minutes of critical care time was spent this complex patient including coordination of care.
--- NOTE | 2019-12-30 09:28 | XR ---
EXAMINATION TYPE: XR chest 1V portable DATE OF EXAM: 12/30/2019 COMPARISON: 12/26/2019 HISTORY: Shortness of breath TECHNIQUE: Single frontal view of the chest is obtained. FINDINGS: New bibasilar opacities are seen obscuring the left hemidiaphragm and right infrahilar air space. New mild pulmonary vascular congestion in comparison to the prior. Superior vena cava/azygos c onfluence is engorged. Cardiomediastinal silhouette is mildly enlarged. Diffuse osseous demineralizat ion seen. IMPRESSION: New bibasilar opacities and mild interstitial edema. Consider congestive heart failure. Bibasilar pneumonia is a less likely consideration.
[2019-12-30] MEDS: PANTOPRAZOLE 40 MG/10 ML VIAL IVP SCH (11:19)
--- NOTE | 2019-12-30 11:39 | P.PN ---
Subjective Progress Note Date: 12/30/19 his is an 89-year-old gentleman with a documented history of diverticulosis, hypertension, a contained dependence, who presented to the emergency room with symptoms of generalized weakness, abdominal discomfort, and diarrhea. 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 EKG on presentation here showed a sinus tachycardia, at the time of my examination patient is currently in atrial fibrillation. Temperature on admission 101.3, heart rate 120s 130s, blood pressure 99/60, 90% on room air. White blood cell count 17.3, hemoglobin 12.7, platelet count 172. Sodium 135, BUN 40, creatinine 1.9, lactic acid 3.6, down to 1.2. Romero virus not detected. Troponins 1.8, 3.9, 3.9. Because of the abnormality in troponin a cardiology consultation has been requested. Patient denies having any chest discomfort or breathing difficulty. 12/28/2019 Patient was seen and examined this morning, overall feeling well. Blood pressure 110/70, heart rate 106. Echocardiogram with Doppler study revealed an ejection fraction of 30-35%. We will increase his dose of beta caren, add an SERGEI inhibitor and Aldactone, monitoring the creatinine closely. Creatinine today is 1.5. In addition to the baby aspirin and we will also add Plavix to his medication regime. 12/29/2019 Patient was seen and examined this morning, doing well, up ambulating in his room without any difficulty. Denies any chest discomfort in his breathing is stable. Ultrasound of the abdomen and bladder revealed a solid right upper pole renal mass measuring 4.1 cm that should be considered neoplasm until proven ot herwise. Bilateral renal cyst also noted, the largest measuring 6.5. Blood pressure 144/80 with a heart rate of 90, 97% on room air. Sodium 138, potassium 3.6, BUN 35, creatinine 1.4. 12/30/2019 Patient was seen and examined this morning, earlier this morning patient went into A. fib with RVR, subsequent to that he went into V. tach, they were unable to find a pulse, initiated chest compressions and shortly thereafter the patient woke up. He was started on IV amiodarone. At the time of my examination he was awake and alert, feeling much better he states that he did approximately 20 m inutes earlier. His potassium and magnesium are also being replaced. Blood pressure was 24/80, heart rate in the 80s, 95% on 6 L of oxygen. White blood cell count is normal, hemoglobin 10.4, platelet count 216. Sodium 137, potassium 3.5, BUN 28, creatinine 1.3, magnesium 1.7. chest x-ray was performed this morning which showed new bibasilar opacities and mild interstitial edema. We will start the patient on a small dose of IV Lasix For 24 hours. Objective - Vital Signs Vital signs: Vital Signs Temp 98.7 F 12/30/19 07:48 Pulse 131 H 12/30/19 07:48 Resp 17 12/30/19 07:48 BP 124/87 12/30/19 07:48 Pulse Ox 95 12/30/19 08:36 Intake & Output 12/29/19 12/30/19 12/30/19 18:59 06:59 18:59 Intake Total 976 10 Balance 976 10 Weight 89 kg Intake: IV 10 0.9 10 Intake, IV Titration 200 Amount cefTRIAXone 1 gm In 100 Sodium Chloride 0.9% 50 ml @ 100 mls/hr IVPB Q24HR [facility] Rx#:[id number] metroNIDAZOLE-NS PMX 500 100 mg In Saline 1 100ml.bag @ 100 mls/hr IVPB Q8HR [facility] Rx#:[id number] Oral 776 Other: Voiding Method Toilet Toilet # Voids 2 1 - Exam PHYSICAL EXAMINATION: GENERAL: 89-year-old gentleman in no acute distress at the time of my examination HEENT: Head is atraumatic, normocephalic. Pupils equal, round. Sclera anicteric. Conjunctiva are clear. Mucous membranes of the mouth are moist. Neck is supple. There is no elevated jugular venous pressure. No carotid bruit is heard. HEART EXAMINATION: Heart S1, S2 tachycardic . No murmur or gallop heard. CHEST EXAMINATION: Lungs are clear with mild diminished air entry to the bases. No chest wall tenderness is noted on palpation or with deep breathing. ABDOMEN: Soft, nontender. Bowel sounds are heard. No organomegaly noted. EXTREMITIES: 2+ peripheral pulses with no evidence of peripheral edema and no calf tenderness noted. NEUROLOGIC patient is awake, alert and oriented 2 . - Labs CBC & Chem 7: 12/30/19 06:14 12/30/19 06:14 Labs: Abnormal Lab Results - Last 24 Hours (Table) 12/29/19 12/29/19 12/30/19 Range/Units 05:57 12:08 06:14 WBC 11.8 H (3.8-10.6) k/uL RBC 3.14 L 3.28 L (4.30-5.90) m/uL Hgb 10.4 L 10.4 L (13.0-17.5) gm/dL Hct 33.0 L 33.1 L (39.0-53.0) % MCV 105.3 H D 100.7 H (80.0-100.0) fL Neutrophils # 8.6 H (1.3-7.7) k/uL Lymphocytes # 0.6 L (1.0-4.8) k/uL Chloride (98-107) mmol/L Carbon Dioxide (22-30) mmol/L BUN (9-20) mg/dL Creatinine (0.66-1.25) mg/dL Glucose (74-99) mg/dL POC Glucose (mg/dL) 109 H (75-99) mg/dL Calcium (8.4-10.2) mg/dL 12/30/19 12/30/19 Range/Units 06:14 08:31 WBC (3.8-10.6) k/uL RBC (4.30-5.90) m/uL Hgb (13.0-17.5) gm/dL Hct (39.0-53.0) % MCV (80.0-100.0) fL Neutrophils # (1.3-7.7) k/uL Lymphocytes # (1.0-4.8) k/uL Chloride 110 H (98-107) mmol/L Carbon Dioxide 19 L (22-30) mmol/L BUN 28 H (9-20) mg/dL Creatinine 1.36 H (0.66-1.25) mg/dL Glucose 120 H (74-99) mg/dL POC Glucose (mg/dL) 142 H (75-99) mg/dL Calcium 7.6 L (8.4-10.2) mg/dL Microbiology - Last 24 Hours (Table) 12/25/19 17:34 Blood Culture - Preliminary Blood No Growth after 96 hours Assessment and Plan Plan: Assessment and plan #1 sepsis, possibly secondary to acute sigmoid diverticulitis #2 renal mass #3 abnormality in troponin, representing a non-Q-wave myocardial infarction echocardiogram with Doppler study revealed an ejection fraction of 30-35% #4 acute on chronic renal failure #5 hypertension #6 history of nicotine dependence #7 systolic congestive heart failure acute on chronic Plan We will continue the IV amiodarone as ordered this morning, give the patient IV Lasix today, check lytes BUN and creatinine in the morning. Replace potassium and magnesium. DNP note has been reviewed, I agree with a documented findings and plan of care. Patient was seen and examined.
[2019-12-30] MEDS ORDERED: Magnesium Replacement Protocol 1 EACH MISC MISCELLANE PRN (11:58)
--- NOTE | 2019-12-30 12:16 | P.PN ---
Subjective Progress Note Date: 12/30/19 This is an 89-year-old gentleman with history of diverticulosis, small bowel obstruction secondary to adhesions with exploratory laparotomy with subsequent repeat laparotomy with closure of fascial dehiscence, inguinal hernia repair, hypertension, melanoma, nicotine dependence and multiple other medical issues presented to the ER with complaints of increasing generalized weakness, left- sided abdominal pain,nausea, no emesis, diarrhea accompanied by disorientation. Denied fever,chills or cough. Denies congestion. Denies chest pain, palpitations or shortness of breath. Denies hemoptysis, hematochezia, melena, hematuria. Denies lightheadedness, dizziness or focal deficits. 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 EKG point sinus tachycardia, troponin pending. On admission, febrile with temperature up 101.3, tachycardic heart rate 122, hypotensive, blood pressure 99/64, respiratory rate 18, maintaining O2 sats in the 90s on room air. WBC 17.3, hemoglobin 12.7, platelets 172, INR 1, sodium 135, BUN 40, creatinine 1.96. Lactic acid 3.6, received IV fluid hydration ,decreased to 1.2. Total bili mildly elevated at 1.6, LFTs within normal limits. UA reporting blood. Coronavirus not detected. IV antibiotics of Rocephin and Flagyl initiated in addition to IV fluid hydration. Surgery and interventional radiology consulted. 12/29/19 on admission troponins pending, returning at 1.85, 3.95, 3.91 .Evaluated by cardiology with recommendations noted. renal ultrasound performed yesterday reporting systolic right upper pole renal mass measuring 4.1 cm, should be consider neoplasm until proven otherwise. Further evaluation being discussed between Dr. Reyes from interventional radiology and Dr. Ma, Urology. Tolerating low fat diet, reporting liquid bowel movements, positive flatus. Denies nausea or vomiting. Pain improving. T-max 100.1. CBC ordered/pending.Tachycardia currently resolved. Preliminary blood cultures no growth at 72 hours. Renal function slowly improving,1.49. Maintained on Rocephin, Flagyl. 12/30/2019, Earlier this morning went into A. fib, heart rates in the 140s, asymptomatic. Reported rest night, restless, could not sleep. Later in the morning, and patient subsequently went into V. tach requiring CPR, awakening during chest compressions with IV amiodarone initiated. Did not require intubation. Converted to sinus rhythm. VSS, maintaining O2 sats in the 90s on 6 L nasal cannula. Chest x-ray reporting new bibasilar opacities, mild interstitial edema, consider CHF, bibasilar pneumonia less likely. Afebrile, normal WBC. Potassium 3.5, magnesium 1.7, receiving supplements. Creatinine continues to improve, trending down to 1.36. Currently denies abdominal pain. Objective - Vital Signs Vital signs: Vital Signs Temp 98.7 F 12/30/19 07:48 Pulse 131 H 12/30/19 07:48 Resp 17 12/30/19 07:48 BP 124/87 12/30/19 07:48 Pulse Ox 95 12/30/19 08:36 Intake & Output 12/29/19 12/30/19 12/30/19 18:59 06:59 18:59 Intake Total 976 10 Balance 976 10 Weight 89 kg Intake: IV 10 0.9 10 Intake, IV Titration 200 Amount cefTRIAXone 1 gm In 100 Sodium Chloride 0.9% 50 ml @ 100 mls/hr IVPB Q24HR [facility] Rx#:[id number] metroNIDAZOLE-NS PMX 500 100 mg In Saline 1 100ml.bag @ 100 mls/hr IVPB Q8HR [facility] Rx#:[id number] Oral 776 Other: Voiding Method Toilet Toilet # Voids 2 1 - Exam GENERAL: Well-developed elderly gentleman ,Sitting up in bed, no acute distress. Tired appearing HEAD: Atraumatic, normocephalic. EYES: Pupils equal, round, and reactive to light, extraocular movements intact, sclera anicteric, conjunctiva are normal. ENT: Oropharynx clear without exudates. Oral mucosa dry. NECK:Supple without lymphadenopathy or JVD. LUNGS: Breath sounds clear to auscultation bilaterally. No wheezes, rales, or rhonchi. HEART: Regular S1 and S2, tachycardic, No murmurs, rubs or gallops. ABDOMEN: Softer, diffuse tenderness,distended, hypoactive bowel sounds. No guarding, no rebound. No masses or organomegaly appreciated. EXTREMITIES: 2+ peripheral pulses. No edema, clubbing or cyanosis. No calf tenderness. NEUROLOGICAL: Pt oriented x 3. Cranial nerves II through XII grossly intact. Strength and sensation grossly intact. PSYCH: Normal mood, normal affect. SKIN: Warm, dry, intact. Normal turgor. No rashes. - Labs CBC & Chem 7: 12/30/19 06:14 12/30/19 06:14 Labs: Abnormal Lab Results - Last 24 Hours (Table) 12/29/19 12/29/19 12/30/19 Range/Units 05:57 12:08 06:14 WBC 11.8 H (3.8-10.6) k/uL RBC 3.14 L 3.28 L (4.30-5.90) m/uL Hgb 10.4 L 10.4 L (13.0-17.5) gm/dL Hct 33.0 L 33.1 L (39.0-53.0) % MCV 105.3 H D 100.7 H (80.0-100.0) fL Neutrophils # 8.6 H (1.3-7.7) k/uL Lymphocytes # 0.6 L (1.0-4.8) k/uL Chloride (98-107) mmol/L Carbon Dioxide (22-30) mmol/L BUN (9-20) mg/dL Creatinine (0.66-1.25) mg/dL Glucose (74-99) mg/dL POC Glucose (mg/dL) 109 H (75-99) mg/dL Calcium (8.4-10.2) mg/dL 12/30/19 12/30/19 Range/Units 06:14 08:31 WBC (3.8-10.6) k/uL RBC (4.30-5.90) m/uL Hgb (13.0-17.5) gm/dL Hct (39.0-53.0) % MCV (80.0-100.0) fL Neutrophils # (1.3-7.7) k/uL Lymphocytes # (1.0-4.8) k/uL Chloride 110 H (98-107) mmol/L Carbon Dioxide 19 L (22-30) mmol/L BUN 28 H (9-20) mg/dL Creatinine 1.36 H (0.66-1.25) mg/dL Glucose 120 H (74-99) mg/dL POC Glucose (mg/dL) 142 H (75-99) mg/dL Calcium 7.6 L (8.4-10.2) mg/dL Microbiology - Last 24 Hours (Table) 12/25/19 17:34 Blood Culture - Preliminary Blood No Growth after 96 hours Assessment and Plan Assessment: Sepsis secondary to acute sigmoid diverticulitis in a patient with History of diverticulosis, possibly ileus, possible partial mechanical small bowel obstruction Acute on chronic CHF exacerbation, systolic dysfunction New onset atrial fibrillation with rapid ventricular rate Nonsustained V. 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 Irregular and raised nevus in the back which is being monitored for melanoma as an outpatient History of melanoma. History of umbilical hernia repair History of extensive nicotine dependence. Hypokalemia Hypomagnesemia Plan: Continue on current medication regime ,monitoring and symptomatic treatment. Antiarrhythmics, diuretics as per cardiology. Close monitoring of electrolytes, renal function with repeat labs ordered for a.m. Maintain Rocephin, Flagyl . Further workup of renal mass as per urology and interventional radiology. Prognosis guarded given multiple complex medical issues. The impression and plan of care has been dictated as directed. : I performed a history and examination of this patient, discussed the same with the dictator. I agree with the dictator's note ,documented as a scribe. Any additional findings or plans will be noted.
[2019-12-30] MEDS: POTASSIUM CHLORIDE 10 MEQ in WATER FOR INJECTION 1 100ML.BAG IVPB SCH ×2 (12:26→13:40)
[2019-12-30] MEDS: metroNIDAZOLE-NS PMX 500 MG in SALINE 1 100ML.BAG IVPB SCH ×3 (13:41→22:25)
[2019-12-30] MEDS: AMIODARONE 300 MG in DEXTROSE 5% IN WATER 250 ML IV SCH ×4 (13:42→22:25)
[2019-12-30] MEDS ORDERED: Potassium Replacement Protocol 1 EACH MISC MISCELLANE PRN (14:46)
[2019-12-30] MEDS: POTASSIUM CHLORIDE ER 20 MEQ TAB.ER PO SCH ×2 (15:02→17:31)
--- NOTE | 2019-12-30 15:03 | CDI ---
Documentation Clarification Form Date: 12/30/2019 02:51:14 PM From: Emilia FryREINALDO boyd, CCDS Admit Date: 12/25/2019 08:16:00 PM Patient Name: Tyson Collins Visit Number: [id number] Discharge Date: ATTENTION: The Clinical Documentation Specialists (CDI) and [facility] Coding Staff appreciate your assistance in clarifying documentation. Please respond to the clarification below the line at the bottom and electronically sign. The CDI & [facility] Coding staff will review the response and follow-up if needed. Please note: Queries are made part of the Legal Health Record. If you have any questions, please contact the author of this message via ITS. Dr. Hernan Mccord: Atrial Fibrillation is documented in the 12/26 ECHO, the 12/26 Cardiology Consult and subsequent Progress Notes. Per the 12/29 Cardiology Progress Note: ".... patient is currently in atrial fibrillation." History/Risk Factors: Previous SBO secondary to adhesions requiring exploratory laparotomy & subsequent repeat laparotomy with closure of fascial dehiscence. 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 Clinical Indicators: Presented to the ED on 12/24 with generalized weakness, disorientation, diarrhea & fever. Admitted with sepsis secondary to acute diverticulitis with a history of diverticulosis, possible ileus & possible partial mechanical small bowel obstruction and also a NSTEMI. 12/24 EKG: R 115 sinus tachycardia. 12/25 EKG: R 107 sinus tachycardia, left axis deviation, ST depression, consider subendocardial injury, Abnormal QRS-T angle, consider primary T wave abnormality. 12/27 EKG: R 93 nsr, nonspecific intraventricular conduction delay, ST depression, consider subendocardial injury or digitalis effect. Treatment: IV fluid 500 mls @ 1,000 mls/hr, IV Rocephin, IV Flagyl, IV Benadryl, po Lopressor, po Aldactone, po Zestril. On 12/29: IV Amiodarone & IV Mag Sulfate, pt went into ventricular tachycardia, transferred to ICU. In your professional opinion, can you please clarify the type of Atrial Fibrillation, if known? Paroxysmal Persistent Other, please specify Unable to determine (Last Revision: October 2017) MTDD
[2019-12-31 06:42] LABS: Basophils % (A) 0 %; Eosinophils # (A) 0.2 k/uL (0-0.7); Eosinophils % (A) 2 %; HCT 37.4 % (39.0-53.0); HGB 11.7 gm/dL (13.0-17.5); Hypochromasia Moderate; Lymphocytes % (A) 8 %; MCH 32.4 pg (25.0-35.0); MCHC 31.4 g/dL (31.0-37.0); MCV 103.3 fL (80.0-100.0); Macrocytosis Moderate; Mean Platelet Volume 8.8; Monocytes # (A) 0.6 k/uL (0-1.0); Monocytes % (A) 5 %; Neutrophils # (A) 9.6 k/uL (1.3-7.7); Neutrophils % (A) 83 %; Platelet Count 231 k/uL (150-450); RBC 3.62 m/uL (4.30-5.90); WBC 11.6 k/uL (3.8-10.6)
[2019-12-31 06:59] LABS: Calcium 7.8 mg/dL (8.4-10.2)
[2019-12-31 07:06] LABS: Potassium 4.6 mmol/L (3.5-5.1)
--- NOTE | 2019-12-31 07:22 | P.PN ---
Subjective Progress Note Date: 12/30/19 CHIEF COMPLAINT: Abdominal pain HISTORY OF PRESENT ILLNESS: Patient examined at the bedside. Patient denies abdominal pain. Tolerating diet without nausea or vomiting. Patient went into afib with RVR this morning. Cardiology is following. PHYSICAL EXAM: VITAL SIGNS: Reviewed. GENERAL: Well-developed in no acute distress. HEENT: No sclera icterus. Extraocular movements grossly intact. Moist buccal mucosa. Head is atraumatic, normocephalic. ABDOMEN: Soft. Nondistended. Nontender. NEUROLOGIC: Alert and oriented. Cranial nerves II through XII grossly intact. ASSESSMENT: 1. Acute sigmoid diverticulitis 2. History of small bowel obstruction with exploratory laparotomy with lysis of adhesions, February 2016 PLAN: -Continue antibiotics -Continue diet as tolerated Nurse practitioner note has been reviewed by physician. Signing provider agrees with the documented findings, assessment, and plan of care. Objective - Vital Signs Vital signs: Vital Signs Temp 98.7 F 12/30/19 07:48 Pulse 131 H 12/30/19 07:48 Resp 17 12/30/19 07:48 BP 124/87 12/30/19 07:48 Pulse Ox 95 12/30/19 08:36 Intake & Output 12/29/19 12/30/19 12/30/19 18:59 06:59 18:59 Intake Total 976 10 Balance 976 10 Weight 89 kg Intake: IV 10 0.9 10 Intake, IV Titration 200 Amount cefTRIAXone 1 gm In 100 Sodium Chloride 0.9% 50 ml @ 100 mls/hr IVPB Q24HR [facility] Rx#:[id number] metroNIDAZOLE-NS PMX 500 100 mg In Saline 1 100ml.bag @ 100 mls/hr IVPB Q8HR [facility] Rx#:[id number] Oral 776 Other: Voiding Method Toilet Toilet # Voids 2 1 - Labs CBC & Chem 7: 12/30/19 06:14 12/30/19 06:14 Labs: Abnormal Lab Results - Last 24 Hours (Table) 12/29/19 12/30/19 12/30/19 Range/Units 05:57 06:14 06:14 WBC 11.8 H (3.8-10.6) k/uL RBC 3.14 L 3.28 L (4.30-5.90) m/uL Hgb 10.4 L 10.4 L (13.0-17.5) gm/dL Hct 33.0 L 33.1 L (39.0-53.0) % MCV 105.3 H D 100.7 H (80.0-100.0) fL Neutrophils # 8.6 H (1.3-7.7) k/uL Lymphocytes # 0.6 L (1.0-4.8) k/uL Chloride 110 H (98-107) mmol/L Carbon Dioxide 19 L (22-30) mmol/L BUN 28 H (9-20) mg/dL Creatinine 1.36 H (0.66-1.25) mg/dL Glucose 120 H (74-99) mg/dL POC Glucose (mg/dL) (75-99) mg/dL Calcium 7.6 L (8.4-10.2) mg/dL 12/30/19 Range/Units 08:31 WBC (3.8-10.6) k/uL RBC (4.30-5.90) m/uL Hgb (13.0-17.5) gm/dL Hct (39.0-53.0) % MCV (80.0-100.0) fL Neutrophils # (1.3-7.7) k/uL Lymphocytes # (1.0-4.8) k/uL Chloride (98-107) mmol/L Carbon Dioxide (22-30) mmol/L BUN (9-20) mg/dL Creatinine (0.66-1.25) mg/dL Glucose (74-99) mg/dL POC Glucose (mg/dL) 142 H (75-99) mg/dL Calcium (8.4-10.2) mg/dL Microbiology - Last 24 Hours (Table) 12/25/19 17:34 Blood Culture - Preliminary Blood No Growth after 96 hours
--- NOTE | 2019-12-31 08:16 | CDI ---
Documentation Clarification Form Date: 12/30/2019 02:51:00 PM From: Emilia Fry CCS, CCDS Admit Date: 12/25/2019 08:16:00 PM Patient Name: Tyson Collins Visit Number: [id number] Discharge Date: ATTENTION: The Clinical Documentation Specialists (CDI) and [facility] Coding Staff appreciate your assistance in clarifying documentation. Please respond to the clarification below the line at the bottom and electronically sign. The CDI & [facility] Coding staff will review the response and follow-up if needed. Please note: Queries are made part of the Legal Health Record. If you have any questions, please contact the author of this message via ITS. Dr. Hernan Mccord: Atrial Fibrillation is documented in the 12/26 ECHO, the 12/26 Cardiology Consult and subsequent Progress Notes. Per the 12/29 Cardiology Progress Note: ".... patient is currently in atrial fibrillation." History/Risk Factors: Previous SBO secondary to adhesions requiring exploratory laparotomy & subsequent repeat laparotomy with closure of fascial dehiscence. 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 Clinical Indicators: Presented to the ED on 12/24 with generalized weakness, disorientation, diarrhea & fever. Admitted with sepsis secondary to acute diverticulitis with a history of diverticulosis, possible ileus & possible partial mechanical small bowel obstruction and also a NSTEMI. 12/24 EKG: R 115 sinus tachycardia. 12/25 EKG: R 107 sinus tachycardia, left axis deviation, ST depression, consider subendocardial injury, Abnormal QRS-T angle, consider primary T wave abnormality. 12/27 EKG: R 93 nsr, nonspecific intraventricular conduction delay, ST depression, consider subendocardial injury or digitalis effect. Treatment: IV fluid 500 mls @ 1,000 mls/hr, IV Rocephin, IV Flagyl, IV Benadryl, po Lopressor, po Aldactone, po Zestril. On 12/29: IV Amiodarone & IV Mag Sulfate, pt went into ventricular tachycardia, transferred to ICU. In your professional opinion, can you please clarify the type of Atrial Fibrillation, if known? Paroxysmal Persistent Other, please specify Unable to determine (Last Revision: October 2017) No response from physician, notified HIM to print, scan & cancel query. MTDD
[2019-12-31] MEDS: LISINOPRIL 2.5 MG TAB PO SCH (08:48)
[2019-12-31] MEDS: ASPIRIN 81 MG PO SCH (08:48)
[2019-12-31] MEDS: METOPROLOL TARTRATE 50 MG TAB PO SCH ×2 (08:48→21:19)
[2019-12-31] MEDS: metroNIDAZOLE-NS PMX 500 MG in SALINE 1 100ML.BAG IVPB SCH ×2 (08:48→16:52)
[2019-12-31] MEDS: PANTOPRAZOLE 40 MG/10 ML VIAL IVP SCH (08:48)
[2019-12-31] MEDS: SPIRONOLACTONE 25 MG TAB PO SCH (08:48)
[2019-12-31] MEDS: AMIODARONE 200 MG TAB PO SCH ×2 (12:07→21:19)
--- NOTE | 2019-12-31 13:09 | P.PN ---
Subjective Progress Note Date: 12/31/19 This is an 89-year-old gentleman with history of diverticulosis, small bowel obstruction secondary to adhesions with exploratory laparotomy with subsequent repeat laparotomy with closure of fascial dehiscence, inguinal hernia repair, hypertension, melanoma, nicotine dependence and multiple other medical issues presented to the ER with complaints of increasing generalized weakness, left- sided abdominal pain,nausea, no emesis, diarrhea accompanied by disorientation. Denied fever,chills or cough. Denies congestion. Denies chest pain, palpitations or shortness of breath. Denies hemoptysis, hematochezia, melena, hematuria. Denies lightheadedness, dizziness or focal deficits. 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 EKG point sinus tachycardia, troponin pending. On admission, febrile with temperature up 101.3, tachycardic heart rate 122, hypotensive, blood pressure 99/64, respiratory rate 18, maintaining O2 sats in the 90s on room air. WBC 17.3, hemoglobin 12.7, platelets 172, INR 1, sodium 135, BUN 40, creatinine 1.96. Lactic acid 3.6, received IV fluid hydration ,decreased to 1.2. Total bili mildly elevated at 1.6, LFTs within normal limits. UA reporting blood. Coronavirus not detected. IV antibiotics of Rocephin and Flagyl initiated in addition to IV fluid hydration. Surgery and interventional radiology consulted. 12/29/19 on admission troponins pending, returning at 1.85, 3.95, 3.91 .Evaluated by cardiology with recommendations noted. renal ultrasound performed yesterday reporting systolic right upper pole renal mass measuring 4.1 cm, should be consider neoplasm until proven otherwise. Further evaluation being discussed between Dr. Reyes from interventional radiology and Dr. Ma, Urology. Tolerating low fat diet, reporting liquid bowel movements, positive flatus. Denies nausea or vomiting. Pain improving. T-max 100.1. CBC ordered/pending.Tachycardia currently resolved. Preliminary blood cultures no growth at 72 hours. Renal function slowly improving,1.49. Maintained on Rocephin, Flagyl. 12/30/2019, Earlier this morning went into A. fib, heart rates in the 140s, asymptomatic. Reported rest night, restless, could not sleep. Later in the morning, and patient subsequently went into V. tach requiring CPR, awakening during chest compressions with IV amiodarone initiated. Did not require intubation. Converted to sinus rhythm. VSS, maintaining O2 sats in the 90s on 6 L nasal cannula. Chest x-ray reporting new bibasilar opacities, mild interstitial edema, consider CHF, bibasilar pneumonia less likely. Afebrile, normal WBC. Potassium 3.5, magnesium 1.7, receiving supplements. Creatinine continues to improve, trending down to 1.36. Currently denies abdominal pain. 12/31/2019 maintained on amiodarone this morning with telemetry reporting sinus rhythm, PACs. Creatinine mildly increased to 1.57 Oxygen weaned off, maintaining O2 sats in the 90s on room air. Afebrile, vital signs stable. Denies any chest pain, palpitations or shortness of breath. Objective - Vital Signs Vital signs: Vital Signs Temp 98.0 F 12/31/19 07:47 Pulse 80 12/31/19 08:00 Resp 17 12/31/19 08:00 BP 149/77 12/31/19 07:47 Pulse Ox 95 12/31/19 07:47 Intake & Output 12/30/19 12/31/19 12/31/19 18:59 06:59 18:59 Intake Total 240 217.917 0 Output Total 200 Balance 40 217.917 0 Weight 90.3 kg Intake: Intake, IV Titration 217.917 Amount Amiodarone 300 mg In 217.917 Dextrose 5% in Water 250 ml @ 0.5 MG/MIN 25 mls/hr IV .Q10H [facility] Rx#: [id number] Oral 240 0 Output: Urine 200 Other: Voiding Method Toilet Toilet Toilet # Voids 3 5 1 # Bowel Movements 3 1 - Exam GENERAL: Sitting up at side of bed, no acute distress. HEAD: Atraumatic, normocephalic. EYES: Pupils equal, round, and reactive to light, extraocular movements intact, sclera anicteric, conjunctiva are normal. ENT: Oropharynx clear without exudates. Oral mucosa moist. NECK:Supple without lymphadenopathy or JVD. LUNGS: Breath sounds clear to auscultation bilaterally. No wheezes, rales, or rhonchi. HEART: Regular S1 and S2, No murmurs, rubs or gallops. ABDOMEN: Softer,less distended, nontender, hypoactive bowel sounds. No guarding, no rebound. No masses or organomegaly appreciated. EXTREMITIES: 2+ peripheral pulses. No edema, clubbing or cyanosis. No calf tenderness. NEUROLOGICAL: Pt oriented x 3. Cranial nerves II through XII grossly intact. Strength and sensation grossly intact. PSYCH: Normal mood, normal affect. SKIN: Warm, dry, intact. Normal turgor. No rashes. - Labs CBC & Chem 7: 12/31/19 06:26 12/31/19 06:26 Labs: Abnormal Lab Results - Last 24 Hours (Table) 12/31/19 12/31/19 Range/Units 06:26 06:26 WBC 11.6 H (3.8-10.6) k/uL RBC 3.62 L (4.30-5.90) m/uL Hgb 11.7 L (13.0-17.5) gm/dL Hct 37.4 L (39.0-53.0) % MCV 103.3 H (80.0-100.0) fL Neutrophils # 9.6 H (1.3-7.7) k/uL Sodium 136 L (137-145) mmol/L Chloride 111 H (98-107) mmol/L Carbon Dioxide 13 L (22-30) mmol/L BUN 29 H (9-20) mg/dL Creatinine 1.57 H (0.66-1.25) mg/dL Glucose 136 H (74-99) mg/dL Calcium 7.8 L (8.4-10.2) mg/dL Microbiology - Last 24 Hours (Table) 12/25/19 17:34 Blood Culture - Preliminary Blood No Growth after 120 hours Assessment and Plan Assessment: Sepsis secondary to acute sigmoid diverticulitis in a patient with History of diverticulosis, possibly ileus, possible partial mechanical small bowel obstruction Acute on chronic CHF exacerbation, systolic dysfunction New onset atrial fibrillation with rapid ventricular rate Nonsustained V. 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 Irregular and raised nevus in the back which is being monitored for melanoma as an outpatient History of melanoma. History of umbilical hernia repair History of extensive nicotine dependence. Hypokalemia Hypomagnesemia Plan: Continue on current medication regime ,monitoring and symptomatic treatment. Amiodarone being converted to oral today as per cardiology. Close monitoring of renal function, electrolytes with repeat labs ordered for a.m. continue on antibiotics. Further workup of renal mass OP as per urology and interventional radiology pending resolution of diverticulitis. Prognosis guarded given multiple complex medical issues. The impression and plan of care has been dictated as directed. : I performed a history and examination of this patient, discussed the same with the dictator. I agree with the dictator's note ,documented as a scribe. Any additional findings or plans will be noted.
--- NOTE | 2019-12-31 14:02 | P.PN ---
Subjective Progress Note Date: 12/31/19 his is an 89-year-old gentleman with a documented history of diverticulosis, hypertension, a contained dependence, who presented to the emergency room with symptoms of generalized weakness, abdominal discomfort, and diarrhea. 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 EKG on presentation here showed a sinus tachycardia, at the time of my examination patient is currently in atrial fibrillation. Temperature on admission 101.3, heart rate 120s 130s, blood pressure 99/60, 90% on room air. White blood cell count 17.3, hemoglobin 12.7, platelet count 172. Sodium 135, BUN 40, creatinine 1.9, lactic acid 3.6, down to 1.2. Romero virus not detected. Troponins 1.8, 3.9, 3.9. Because of the abnormality in troponin a cardiology consultation has been requested. Patient denies having any chest discomfort or breathing difficulty. 12/28/2019 Patient was seen and examined this morning, overall feeling well. Blood pressure 110/70, heart rate 106. Echocardiogram with Doppler study revealed an ejection fraction of 30-35%. We will increase his dose of beta caren, add an SERGEI inhibitor and Aldactone, monitoring the creatinine closely. Creatinine today is 1.5. In addition to the baby aspirin and we will also add Plavix to his medication regime. 12/29/2019 Patient was seen and examined this morning, doing well, up ambulating in his room without any difficulty. Denies any chest discomfort in his breathing is stable. Ultrasound of the abdomen and bladder revealed a solid right upper pole renal mass measuring 4.1 cm that should be considered neoplasm until proven ot herwise. Bilateral renal cyst also noted, the largest measuring 6.5. Blood pressure 144/80 with a heart rate of 90, 97% on room air. Sodium 138, potassium 3.6, BUN 35, creatinine 1.4. 12/30/2019 Patient was seen and examined this morning, earlier this morning patient went into A. fib with RVR, subsequent to that he went into V. tach, they were unable to find a pulse, initiated chest compressions and shortly thereafter the patient woke up. He was started on IV amiodarone. At the time of my examination he was awake and alert, feeling much better he states that he did approximately 20 m inutes earlier. His potassium and magnesium are also being replaced. Blood pressure was 24/80, heart rate in the 80s, 95% on 6 L of oxygen. White blood cell count is normal, hemoglobin 10.4, platelet count 216. Sodium 137, potassium 3.5, BUN 28, creatinine 1.3, magnesium 1.7. chest x-ray was performed this morning which showed new bibasilar opacities and mild interstitial edema. We will start the patient on a small dose of IV Lasix For 24 hours. 12/31/2019 Patient was seen and examined this morning, looks so much better today as compared with yesterday. He feels well, denies any chest discomfort, his breathing is stable. He's been up ambulating in his room without any difficulty.no further ventricular arrhythmias noted. Blood pressure 128/80 with a heart rate in the 70s, 97% on 4 L of oxygen. Objective - Vital Signs Vital signs: Vital Signs Temp 98.0 F 12/31/19 07:47 Pulse 80 12/31/19 08:00 Resp 17 12/31/19 08:00 BP 149/77 12/31/19 07:47 Pulse Ox 95 12/31/19 07:47 Intake & Output 12/30/19 12/31/19 12/31/19 18:59 06:59 18:59 Intake Total 240 217.917 0 Output Total 200 Balance 40 217.917 0 Weight 90.3 kg Intake: Intake, IV Titration 217.917 Amount Amiodarone 300 mg In 217.917 Dextrose 5% in Water 250 ml @ 0.5 MG/MIN 25 mls/hr IV .Q10H [facility] Rx#: [id number] Oral 240 0 Output: Urine 200 Other: Voiding Method Toilet Toilet Toilet # Voids 3 5 1 # Bowel Movements 3 1 - Exam PHYSICAL EXAMINATION: GENERAL: 89-year-old gentleman in no acute distress at the time of my examination HEENT: Head is atraumatic, normocephalic. Pupils equal, round. Sclera anicteric. Conjunctiva are clear. Mucous membranes of the mouth are moist. Neck is supple. There is no elevated jugular venous pressure. No carotid bruit is heard. HEART EXAMINATION: Heart S1, S2 tachycardic . No murmur or gallop heard. CHEST EXAMINATION: Lungs are clear with mild diminished air entry to the bases. No chest wall tenderness is noted on palpation or with deep breathing. ABDOMEN: Soft, nontender. Bowel sounds are heard. No organomegaly noted. EXTREMITIES: 2+ peripheral pulses with no evidence of peripheral edema and no calf tenderness noted. NEUROLOGIC patient is awake, alert and oriented 2 . - Labs CBC & Chem 7: 12/31/19 06:26 12/31/19 06:26 Labs: Abnormal Lab Results - Last 24 Hours (Table) 12/31/19 12/31/19 Range/Units 06:26 06:26 WBC 11.6 H (3.8-10.6) k/uL RBC 3.62 L (4.30-5.90) m/uL Hgb 11.7 L (13.0-17.5) gm/dL Hct 37.4 L (39.0-53.0) % MCV 103.3 H (80.0-100.0) fL Neutrophils # 9.6 H (1.3-7.7) k/uL Sodium 136 L (137-145) mmol/L Chloride 111 H (98-107) mmol/L Carbon Dioxide 13 L (22-30) mmol/L BUN 29 H (9-20) mg/dL Creatinine 1.57 H (0.66-1.25) mg/dL Glucose 136 H (74-99) mg/dL Calcium 7.8 L (8.4-10.2) mg/dL Microbiology - Last 24 Hours (Table) 12/25/19 17:34 Blood Culture - Preliminary Blood No Growth after 120 hours Assessment and Plan Plan: Assessment and plan #1 sepsis, possibly secondary to acute sigmoid diverticulitis #2 renal mass #3 abnormality in troponin, representing a non-Q-wave myocardial infarction echocardiogram with Doppler study revealed an ejection fraction of 30-35% #4 acute on chronic renal failure #5 hypertension #6 history of nicotine dependence #7 systolic congestive heart failure acute on chronic Plan We will start the patient on oral amiodarone, continue the rest of his medications. Anticipating possible discharge home in 24 hours. DNP note has been reviewed, I agree with a documented findings and plan of care. Patient was seen and examined.
--- NOTE | 2019-12-31 15:00 | P.PN ---
Subjective Progress Note Date: 12/31/19 CHIEF COMPLAINT: Abdominal pain HISTORY OF PRESENT ILLNESS: Patient examined at the bedside. Patient denies abdominal pain. Tolerating diet without nausea or vomiting. WBC 11.6. Hemoglobin 11.7. PHYSICAL EXAM: VITAL SIGNS: Reviewed. GENERAL: Well-developed in no acute distress. HEENT: No sclera icterus. Extraocular movements grossly intact. Moist buccal mucosa. Head is atraumatic, normocephalic. ABDOMEN: Soft. Nondistended. Nontender. NEUROLOGIC: Alert and oriented. Cranial nerves II through XII grossly intact. ASSESSMENT: 1. Acute sigmoid diverticulitis 2. History of small bowel obstruction with exploratory laparotomy with lysis of adhesions, February 2016 PLAN: -Continue antibiotics -Continue diet as tolerated -Stable for discharge home from a surgical standpoint Nurse practitioner note has been reviewed by physician. Signing provider agrees with the documented findings, assessment, and plan of care. Objective - Vital Signs Vital signs: Vital Signs Temp 98.0 F 12/31/19 07:47 Pulse 80 12/31/19 08:00 Resp 17 12/31/19 08:00 BP 149/77 12/31/19 07:47 Pulse Ox 95 12/31/19 07:47 Intake & Output 12/30/19 12/31/19 12/31/19 18:59 06:59 18:59 Intake Total 240 217.917 0 Output Total 200 Balance 40 217.917 0 Weight 90.3 kg Intake: Intake, IV Titration 217.917 Amount Amiodarone 300 mg In 217.917 Dextrose 5% in Water 250 ml @ 0.5 MG/MIN 25 mls/hr IV .Q10H [facility] Rx#: [id number] Oral 240 0 Output: Urine 200 Other: Voiding Method Toilet Toilet Toilet # Voids 3 5 1 # Bowel Movements 3 1 - Labs CBC & Chem 7: 12/31/19 06:26 12/31/19 06:26 Labs: Abnormal Lab Results - Last 24 Hours (Table) 12/31/19 12/31/19 Range/Units 06:26 06:26 WBC 11.6 H (3.8-10.6) k/uL RBC 3.62 L (4.30-5.90) m/uL Hgb 11.7 L (13.0-17.5) gm/dL Hct 37.4 L (39.0-53.0) % MCV 103.3 H (80.0-100.0) fL Neutrophils # 9.6 H (1.3-7.7) k/uL Sodium 136 L (137-145) mmol/L Chloride 111 H (98-107) mmol/L Carbon Dioxide 13 L (22-30) mmol/L BUN 29 H (9-20) mg/dL Creatinine 1.57 H (0.66-1.25) mg/dL Glucose 136 H (74-99) mg/dL Calcium 7.8 L (8.4-10.2) mg/dL Microbiology - Last 24 Hours (Table) 12/25/19 17:34 Blood Culture - Preliminary Blood No Growth after 120 hours
[2019-12-31 15:19] VITALS: BMI 29.4
[2019-12-31] MEDS ORDERED: MENTHOL (NICE) LOZENGE MUCOUS MEM PRN (15:25)
[2019-12-31] MEDS: metroNIDAZOLE 500 MG TAB PO SCH (21:20)
[2020-01-01 04:00] VITALS: RESP 18
[2020-01-01 07:59] VITALS: BP 146/83; PULSE 83; TEMP 97.8
[2020-01-01] MEDS: LISINOPRIL 2.5 MG TAB PO SCH (08:34)
[2020-01-01] MEDS: ASPIRIN 81 MG PO SCH (08:34)
[2020-01-01] MEDS: AMIODARONE 200 MG TAB PO SCH (08:34)
[2020-01-01] MEDS: SPIRONOLACTONE 25 MG TAB PO SCH (08:34)
[2020-01-01] MEDS: metroNIDAZOLE 500 MG TAB PO SCH (08:34)
[2020-01-01] MEDS: PANTOPRAZOLE 40 MG/10 ML VIAL IVP SCH (08:34)
[2020-01-01] MEDS: METOPROLOL TARTRATE 50 MG TAB PO SCH (08:34)
--- NOTE | 2020-01-01 10:31 | P.PN ---
Subjective Progress Note Date: 01/01/20 his is an 89-year-old gentleman with a documented history of diverticulosis, hypertension, a contained dependence, who presented to the emergency room with symptoms of generalized weakness, abdominal discomfort, and diarrhea. 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 EKG on presentation here showed a sinus tachycardia, at the time of my examination patient is currently in atrial fibrillation. Temperature on admission 101.3, heart rate 120s 130s, blood pressure 99/60, 90% on room air. White blood cell count 17.3, hemoglobin 12.7, platelet count 172. Sodium 135, BUN 40, creatinine 1.9, lactic acid 3.6, down to 1.2. Romero virus not detected. Troponins 1.8, 3.9, 3.9. Because of the abnormality in troponin a cardiology consultation has been requested. Patient denies having any chest discomfort or breathing difficulty. 12/28/2019 Patient was seen and examined this morning, overall feeling well. Blood pressure 110/70, heart rate 106. Echocardiogram with Doppler study revealed an ejection fraction of 30-35%. We will increase his dose of beta caren, add an SERGEI inhibitor and Aldactone, monitoring the creatinine closely. Creatinine today is 1.5. In addition to the baby aspirin and we will also add Plavix to his medication regime. 12/29/2019 Patient was seen and examined this morning, doing well, up ambulating in his room without any difficulty. Denies any chest discomfort in his breathing is stable. Ultrasound of the abdomen and bladder revealed a solid right upper pole renal mass measuring 4.1 cm that should be considered neoplasm until proven ot herwise. Bilateral renal cyst also noted, the largest measuring 6.5. Blood pressure 144/80 with a heart rate of 90, 97% on room air. Sodium 138, potassium 3.6, BUN 35, creatinine 1.4. 12/30/2019 Patient was seen and examined this morning, earlier this morning patient went into A. fib with RVR, subsequent to that he went into V. tach, they were unable to find a pulse, initiated chest compressions and shortly thereafter the patient woke up. He was started on IV amiodarone. At the time of my examination he was awake and alert, feeling much better he states that he did approximately 20 m inutes earlier. His potassium and magnesium are also being replaced. Blood pressure was 24/80, heart rate in the 80s, 95% on 6 L of oxygen. White blood cell count is normal, hemoglobin 10.4, platelet count 216. Sodium 137, potassium 3.5, BUN 28, creatinine 1.3, magnesium 1.7. chest x-ray was performed this morning which showed new bibasilar opacities and mild interstitial edema. We will start the patient on a small dose of IV Lasix For 24 hours. 12/31/2019 Patient was seen and examined this morning, looks so much better today as compared with yesterday. He feels well, denies any chest discomfort, his breathing is stable. He's been up ambulating in his room without any difficulty.no further ventricular arrhythmias noted. Blood pressure 128/80 with a heart rate in the 70s, 97% on 4 L of oxygen. 01/01/2020 Patient seen and examined this morning, doing well, had 1 brief run of n onsustained ventricular tachycardia, 4-5 beats last night. Denies any palpitations, no difficulty in breathing, no chest discomfort.blood pressure 146/82 with a heart rate in the 80s, temperature 97.8, 97% on room air.White blood cell count 11.6, hemoglobin 11.7, platelet count 231. Sodium 136, po tassium 4.6, BUN 29, creatinine 1.5, magnesium 2.0. Objective - Vital Signs Vital signs: Vital Signs Temp 97.8 F 01/01/20 07:58 Pulse 83 01/01/20 08:00 Resp 18 01/01/20 08:00 BP 146/83 01/01/20 07:58 Pulse Ox 97 01/01/20 07:58 Intake & Output 12/31/19 01/01/20 01/01/20 18:59 06:59 18:59 Intake Total 240 120 180 Balance 240 120 180 Weight 90.3 kg 90.5 kg Intake: Oral 240 120 180 Other: Voiding Method Toilet Toilet # Voids 1 1 # Bowel Movements 1 - Exam PHYSICAL EXAMINATION: GENERAL: 89-year-old gentleman in no acute distress at the time of my examination HEENT: Head is atraumatic, normocephalic. Pupils equal, round. Sclera anicteric. Conjunctiva are clear. Mucous membranes of the mouth are moist. Neck is supple. There is no elevated jugular venous pressure. No carotid bruit is heard. HEART EXAMINATION: Heart S1, S2 tachycardic . No murmur or gallop heard. CHEST EXAMINATION: Lungs are clear with improvement in air entry to the bases. No chest wall tenderness is noted on palpation or with deep breathing. ABDOMEN: Soft, nontender. Bowel sounds are heard. No organomegaly noted. EXTREMITIES: 2+ peripheral pulses with no evidence of peripheral edema and no calf tenderness noted. NEUROLOGIC patient is awake, alert and oriented 2 . - Labs CBC & Chem 7: 12/31/19 06:26 12/31/19 06:26 Labs: Microbiology - Last 24 Hours (Table) 12/25/19 17:34 Blood Culture - Final Blood No Growth after 144 hours Assessment and Plan Plan: Assessment and plan #1 sepsis, possibly secondary to acute sigmoid diverticulitis #2 renal mass #3 abnormality in troponin, representing a non-Q-wave myocardial infarction echocardiogram with Doppler study revealed an ejection fraction of 30-35% #4 acute on chronic renal failure #5 hypertension #6 history of nicotine dependence #7 systolic congestive heart failure acute on chronic Plan patient may be discharged home today. We will continue the amiodarone 200 mg by mouth twice a day along with D50 milligrams beta caren twice a day, Zestril 2-1/2 mg daily, baby aspirin,Aldactone 25 mg daily,we will also initiate a statin, and give the patient sublingual nitroglycerin. DNP note has been reviewed, I agree with a documented findings and plan of care. Patient was seen and examined.
[2020-01-01] MEDS ORDERED: ATORVASTATIN 40 MG TAB PO SCH (10:45)
--- NOTE | 2020-01-01 10:55 | P.DS ---
Providers Date of admission: 12/25/19 20:16 Expected date of discharge: 01/01/20 Attending physician: Saroj Bradshaw Consults: 12/26/19 11:05 Consult Physician Routine Consulting Provider: Alexei Rodriguez Consult Reason/Comments: diverticulitis, possible ileus, possible partial small bowel obstruction Do you want consulting provider notified?: Yes 12/26/19 13:09 Consult Physician Routine Consulting Provider: Richard Hector Consult Reason/Comments: renal mass Do you want consulting provider notified?: Yes 12/26/19 17:52 Consult Physician Stat Consulting Provider: Lacy Frye Consult Reason/Comments: elevated troponin, possible [place] Do you want consulting provider notified?: Yes Primary care physician: Saroj Bradshaw Hospital Course: Final Diagnoses: Sepsis secondary to acute sigmoid diverticulitis in a patient with History of diverticulosis, possibly ileus, possible partial mechanical small bowel obstruction Acute on chronic CHF exacerbation, systolic dysfunction New onset atrial fibrillation with rapid ventricular rate Nonsustained V. 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 Irregular and raised nevus in the back which is being monitored for melanoma as an outpatient History of melanoma. History of umbilical hernia repair History of extensive nicotine dependence. Hypokalemia Hypomagnesemia Left lower arm, IV infiltration site, empiric antibiotics at discharge Hospital course:This is an 89-year-old gentleman with history of diverticulosis, small bowel obstruction secondary to adhesions with exploratory laparotomy with subsequent repeat laparotomy with closure of fascial dehiscence, inguinal hernia repair, hypertension, melanoma, nicotine dependence and multiple other medical issues presented to the ER with complaints of increasing generalized weakness, left-sided abdominal pain,nausea, no emesis, diarrhea accompanied by disorientation. Denied fever,chills or cough. Denies congestion. Denies chest pain, palpitations or shortness of breath. Denies hemoptysis, hematochezia, melena, hematuria. Denies lightheadedness, dizziness or focal deficits. 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 EKG point sinus tachycardia, troponin pending. On admission, febrile with temperature up 101.3, tachycardic heart rate 122, hypotensive, blood pressure 99/64, respiratory rate 18, maintaining O2 sats in the 90s on room air. WBC 17.3, hemoglobin 12.7, platelets 172, INR 1, sodium 135, BUN 40, creatinine 1.96. Lactic acid 3.6, received IV fluid hydration ,decreased to 1.2. Total bili mildly elevated at 1.6, LFTs within normal limits. UA reporting blood. Coronavirus not detected. IV antibiotics of Rocephin and Flagyl initiated in addition to IV fluid hydration. Surgery and interventional radiology consulted. 12/29/19 on admission troponins pending, returning at 1.85, 3.95, 3.91 .Evaluated by cardiology with recommendations noted. renal ultrasound performed yesterday reporting systolic right upper pole renal mass measuring 4.1 cm, should be consider neoplasm until proven otherwise. Further evaluation being discussed between Dr. Reyes from interventional radiology and Dr. Ma, Urology. Tolerating low fat diet, reporting liquid bowel movements, positive flatus. Denies nausea or vomiting. Pain improving. T-max 100.1. CBC ordered/pending.Tachycardia currently resolved. Preliminary blood cultures no growth at 72 hours. Renal function slowly improving,1.49. Maintained on Rocephin, Flagyl. 12/30/2019, Earlier this morning went into A. fib, heart rates in the 140s, asymptomatic. Reported rest night, restless, could not sleep. Later in the morning, and patient subsequently went into V. tach requiring CPR, awakening during chest compressions with IV amiodarone initiated. Did not require intubation. Converted to sinus rhythm. VSS, maintaining O2 sats in the 90s on 6 L nasal cannula. Chest x-ray reporting new bibasilar opacities, mild interstitial edema, consider CHF, bibasilar pneumonia less likely. Afebrile, normal WBC. Potassium 3.5, magnesium 1.7, receiving supplements. Creatinine continues to improve, trending down to 1.36. Currently denies abdominal pain. 12/31/2019 maintained on amiodarone this morning with telemetry reporting sinus rhythm, PACs. Creatinine mildly increased to 1.57 Oxygen weaned off, maintaining O2 sats in the 90s on room air. Afebrile, vital signs stable. Denies any chest pain, palpitations or shortness of breath. 01/01/20 yesterday converted to oral amiodarone .5 beat run nonsustained V. tach last night, asymptomatic. Magnesium/labs pending. Vital signs stable. Maintaining O2 sats in the high 90s on room air. Patient is eager for discharge. Patient will be discharged home today pending labs, final DC recommendations, amiodarone taper Rx, clearance from cardiology, in a stable condition with guarded prognosis. Patient has been instructed to follow up OP with urology regarding further workup regarding renal mass. The impression and plan of care has been dictated as directed. : I performed a history and examination of this patient, discussed the same with the dictator. I agree with the dictator's note ,documented as a scribe. Any additional findings or plans will be noted. Patient Condition at Discharge: Stable Plan - Discharge Summary Discharge Rx Participant: No New Discharge Prescriptions: New Spironolactone [Aldactone] 25 mg PO DAILY #30 tab metroNIDAZOLE [Flagyl] 500 mg PO TID #15 tab Cephalexin [Keflex] 500 mg PO Q8HR 3 Days #9 cap Metoprolol Tartrate [Lopressor] 50 mg PO BID #60 tab Pantoprazole Sodium [Protonix] 40 mg PO DAILY #30 tablet. Lisinopril [Zestril] 2.5 mg PO DAILY #30 tab Discontinued Enalapril [Vasotec] 10 mg PO DAILY No Action Aspirin 81 mg PO DAILY EPINEPHrine (Auto Inject) [Epipen] 0.3 mg IM ONCE PRN PRN Reason: Anaphylaxis Discharge Medication List Aspirin 81 mg PO DAILY 08/22/16 [History] EPINEPHrine (Auto Inject) [Epipen] 0.3 mg IM ONCE PRN 03/20/16 [History] Cephalexin [Keflex] 500 mg PO Q8HR 3 Days #9 cap 01/01/20 [Rx] Lisinopril [Zestril] 2.5 mg PO DAILY #30 tab 01/01/20 [Rx] Metoprolol Tartrate [Lopressor] 50 mg PO BID #60 tab 01/01/20 [Rx] Pantoprazole Sodium [Protonix] 40 mg PO DAILY #30 tablet. 01/01/20 [Rx] Spironolactone [Aldactone] 25 mg PO DAILY #30 tab 01/01/20 [Rx] metroNIDAZOLE [Flagyl] 500 mg PO TID #15 tab 01/01/20 [Rx] Follow up Appointment(s)/Referral(s): Saroj Bradshaw DO [Primary Care Provider] - 3 Days Anish Heredia MD [STAFF PHYSICIAN] - 2 Weeks Alexei Rodriguez MD [STAFF PHYSICIAN] - 1 Week Ambulatory/Diagnostic Orders: Complete Blood Count w/diff [LAB.AMB] Time Frame: 3 Days, Location: None Selected Activity/Diet/Wound Care/Special Instructions: Labs pending .Further outpatient workup regarding renal mass outpatient as per urology/interventional radiology. Amiodarone taper as per cardiology. Possible Holter monitor as per cardiology.
[2020-01-01 11:24] LABS: HCT 33.3 % (39.0-53.0); HGB 10.6 gm/dL (13.0-17.5); Hypochromasia Slight; MCH 31.5 pg (25.0-35.0); MCHC 31.7 g/dL (31.0-37.0); MCV 99.4 fL (80.0-100.0); Macrocytosis Slight; Mean Platelet Volume 8.9; Platelet Count 266 k/uL (150-450); RBC 3.35 m/uL (4.30-5.90); RDW 15.1 % (11.5-15.5); WBC 10.1 k/uL (3.8-10.6)
[2020-01-01 11:56] LABS: Calcium 7.7 mg/dL (8.4-10.2); Magnesium 1.9 mg/dL (1.6-2.3); Potassium 4.1 mmol/L (3.5-5.1)
--- NOTE | 2020-01-01 12:17 | P.PN ---
Subjective Progress Note Date: 01/01/20 CHIEF COMPLAINT: Abdominal pain HISTORY OF PRESENT ILLNESS: Patient examined at the bedside. Patient denies abdominal pain. Tolerating diet without nausea or vomiting. PHYSICAL EXAM: VITAL SIGNS: Reviewed. GENERAL: Well-developed in no acute distress. HEENT: No sclera icterus. Extraocular movements grossly intact. Moist buccal mucosa. Head is atraumatic, normocephalic. ABDOMEN: Soft. Nondistended. Nontender. NEUROLOGIC: Alert and oriented. Cranial nerves II through XII grossly intact. ASSESSMENT: 1. Acute sigmoid diverticulitis 2. History of small bowel obstruction with exploratory laparotomy with lysis of adhesions, February 2016 PLAN: -Continue antibiotics -Continue diet as tolerated -Stable for discharge home from a surgical standpoint -We will sign off. Please reconsult if needed. Nurse practitioner note has been reviewed by physician. Signing provider agrees with the documented findings, assessment, and plan of care. Objective - Vital Signs Vital signs: Vital Signs Temp 97.8 F 01/01/20 07:58 Pulse 83 01/01/20 08:00 Resp 18 01/01/20 08:00 BP 146/83 01/01/20 07:58 Pulse Ox 97 01/01/20 07:58 Intake & Output 12/31/19 01/01/20 01/01/20 18:59 06:59 18:59 Intake Total 240 120 180 Balance 240 120 180 Weight 90.3 kg 90.5 kg Intake: Oral 240 120 180 Other: Voiding Method Toilet Toilet # Voids 1 1 # Bowel Movements 1 - Labs CBC & Chem 7: 01/01/20 11:06 01/01/20 11:06 Labs: Abnormal Lab Results - Last 24 Hours (Table) 01/01/20 01/01/20 Range/Units 11:06 11:06 RBC 3.35 L (4.30-5.90) m/uL Hgb 10.6 L (13.0-17.5) gm/dL Hct 33.3 L (39.0-53.0) % Chloride 110 H (98-107) mmol/L Carbon Dioxide 20 L (22-30) mmol/L BUN 29 H (9-20) mg/dL Creatinine 1.45 H (0.66-1.25) mg/dL Glucose 117 H (74-99) mg/dL Calcium 7.7 L (8.4-10.2) mg/dL Microbiology - Last 24 Hours (Table) 12/25/19 17:34 Blood Culture - Final Blood No Growth after 144 hours
== END 2020-01-01 12:55 | disposition home or self-care (01) | DRG 871 ==
LOC: EC 16:57 → 5NMEDONC 20:16 → 3SCARD 12-26 18:24
PROVIDERS: ADMIT Family Medicine; ATTEND Family Medicine
PROC: 5A12012 Performance of Cardiac Output, Single, Manual (ICD-10-PCS; principal; 2019-12-30)
DX: A41.9 Sepsis, unspecified organism (principal); I21.4 Non-ST elevation (NSTEMI) myocardial infarction; I50.23 Acute on chronic systolic (congestive) heart failure; I13.0 Hypertensive heart and chronic kidney disease with heart failure and stage 1 through stage 4 chronic kidney disease, or unspecified chronic kidney disease; I47.2 Ventricular tachycardia; K57.32 Diverticulitis of large intestine without perforation or abscess without bleeding; N17.9 Acute kidney failure, unspecified; K56.7 Ileus, unspecified; K56.609 Unspecified intestinal obstruction, unspecified as to partial versus complete obstruction; N18.3 Chronic kidney disease, stage 3 (moderate); Z11.59 Encounter for screening for other viral diseases; E83.42 Hypomagnesemia; E87.6 Hypokalemia; K40.90 Unilateral inguinal hernia, without obstruction or gangrene, not specified as recurrent; K80.20 Calculus of gallbladder without cholecystitis without obstruction; N28.1 Cyst of kidney, acquired; K64.9 Unspecified hemorrhoids; R31.9 Hematuria, unspecified; E86.0 Dehydration; N28.89 Other specified disorders of kidney and ureter; D22.5 Melanocytic nevi of trunk; Z79.82 Long term (current) use of aspirin; Z79.899 Other long term (current) drug therapy; Z91.030 Bee allergy status; Z85.820 Personal history of malignant melanoma of skin; Z87.891 Personal history of nicotine dependence; Z82.49 Family history of ischemic heart disease and other diseases of the circulatory system; Z80.0 Family history of malignant neoplasm of digestive organs; I48.91 Unspecified atrial fibrillation
CPT/HCPCS: 36415; 71045; 74176; 76770; 80048; 80053; 81001; 83605; 83735; 84484; 85025; 85027; 85610; 85730; 87040; 93005; 93306; 96361; 96365; 96366; 96367; 96375; 96376; 99285

== ENCOUNTER → 2020-07-20 | Outpatient (CLI) | payer MEDICARE, OTHER ==
--- NOTE | 2020-07-20 14:06 | US ---
EXAMINATION TYPE: US kidneys/renal and bladder DATE OF EXAM: 07/20/2020 COMPARISON: US dated 12/28/[address] & [address] dated 12/25/2019 CLINICAL HISTORY: C64.1 Kidney cancer. Follow up right kidney mass EXAM MEASUREMENTS: Right Kidney: 10.2 x 5.3 x 4.5 cm Left Kidney: 9.1 x 4.0 x 4.9 cm Right Kidney: multiple cysts with largest measuring 6.3 x 5.9 x 4.6cm inferior pole, 2.8 x 2.8 x 3.1c m solid appearing mass superior/mid pole Left Kidney: multiple small cysts with largest measuring 1.4cm superior pole Bladder: not fully distended, appears wnl as seen Gallbladder: multiple stones seen There is no evidence for hydronephrosis at this point in time. No nephrolithiasis is seen. There is cortical thinning present in the right kidney and left kidney, cortical medullary differentiation is maintained, I question some increased cortical echogenicity. The urinary bladder is anechoic. IMPRESSION: Solid mass at the upper pole the right kidney is thought to be stable. There may be underlying medica l renal disease.
== END | disposition home or self-care (01) ==
LOC: RADUSWWP 12:19
PROVIDERS: ATTEND Urology
DX: N28.89 Other specified disorders of kidney and ureter (principal); C64.1 Malignant neoplasm of right kidney, except renal pelvis
CPT/HCPCS: 76770

== ENCOUNTER 2020-12-04 12:58 | Inpatient (IN) | payer MEDICARE, OTHER ==
[2020-12-04] MEDS ORDERED: ASPIRIN 81 MG PO STA (13:15)
[2020-12-04] MEDS ORDERED: NITROGLYCERIN OINT 1 INCH/GM PACKET TOPICAL STA (13:15)
--- NOTE | 2020-12-04 13:19 | ED ---
General Adult HPI - General Chief complaint: Chest Pain Stated complaint: chest pain Time Seen by Provider: 12/04/20 13:00 Source: patient, EMS, RN notes reviewed, old records reviewed Mode of arrival: EMS Limitations: no limitations - History of Present Illness Initial comments: This is an 89-year-old male who presents emergency department via EMS. Patient states he's been having chest pain intermittently since last night at about a half hour prior to arrival he started significant chest pain and thought it was at 940 me to come be evaluated emergency for. Patient states he has a history of high blood pressure high cholesterol. Patient states she also has a history of atrial fibrillation. Patient states the pain is still there now but is much better. Patient denies any radiation of the pain. Patient denies any nausea vomiting. Patient denies any diaphoretic episodes. Patient denies any recent fever chills or cough. Patient denies any abdominal pain patient denies nausea vomiting diarrhea. Patient denies any leg swelling or calf tenderness. - Related Data Home Medications Medication Instructions Recorded Confirmed Aspirin 81 mg PO DAILY 03/20/16 12/26/19 EPINEPHrine (Auto Inject) [Epipen] 0.3 mg IM ONCE PRN 03/20/16 12/26/19 Previous Rx's Medication Instructions Recorded Cephalexin [Keflex] 500 mg PO Q8HR 3 Days #9 cap 01/01/20 Metoprolol Tartrate [Lopressor] 50 mg PO BID #60 tab 01/01/20 Pantoprazole Sodium [Protonix] 40 mg PO DAILY #30 tablet. 01/01/20 Spironolactone [Aldactone] 25 mg PO DAILY #30 tab 01/01/20 lisinopriL [Zestril] 2.5 mg PO DAILY #30 tab 01/01/20 metroNIDAZOLE [Flagyl] 500 mg PO TID #15 tab 01/01/20 Allergies Allergy/AdvReac Type Severity Reaction Status Date / Time bee pollen Allergy Anaphylaxis Verified 12/26/19 12:15 honey Allergy Rash/Hives Verified 12/26/19 12:15 venom-honey bee Allergy Anaphylaxis Verified 12/26/19 12:15 [bee venom (honey bee)] venom-wasp [wasp venom] Allergy Anaphylaxis Verified 12/26/19 12:15 Review of Systems ROS Statement: Those systems with pertinent positive or pertinent negative responses have been documented in the HPI. ROS Other: All systems not noted in ROS Statement are negative. Past Medical History Past Medical History: Hypertension Additional Past Medical History / Comment(s): Melanoma removed from R side of trunk, past fracture L wrist, hemorrhoids SBO History of Any Multi-Drug Resistant Organisms: None Reported Past Surgical History: Hernia Repair Additional Past Surgical History / Comment(s): umbilical hernia repair, colonoscopies x 2-normal, melanoma removed R side of trunk. bowel resection Past Anesthesia/Blood Transfusion Reactions: No Reported Reaction Past Psychological History: No Psychological Hx Reported Smoking Status: Former smoker Past Alcohol Use History: Occasional Past Drug Use History: None Reported - Past Family History Father Additional Family Medical History / Comment(s): Father had heart problems. He at the age of 57yrs. Mother Family Medical History: Cancer Additional Family Medical History / Comment(s): Mother of bowel cancer at the age of 89yrs old. General Exam - General Exam Comments Initial Comments: GENERAL: Patient is well-developed and well-nourished. Patient is nontoxic and well- hydrated and is in no acute distress. ENT: Neck is soft and supple. No significant lymphadenopathy is noted. Oropharynx is clear. Moist mucous membranes. Neck has full range of motion without eliciting any pain. EYES: The sclera were anicteric and conjunctiva were pink and moist. Extraocular movements were intact and pupils were equal round and reactive to light. Eyelids were unremarkable. PULMONARY: Unlabored respirations. Good breath sounds bilaterally. Slight crackles CARDIOVASCULAR: There is a regular rate and rhythm without any murmurs gallops or rubs. ABDOMEN: Soft and nontender with normal bowel sounds. SKIN: Skin is clear with no lesions or rashes and otherwise unremarkable. NEUROLOGIC: Patient is alert and oriented x3. Cranial nerves II through XII are grossly intact. Motor and sensory are also intact. Normal speech, volume and content. Symmetrical smile. MUSCULOSKELETAL: Normal extremities with adequate strength and full range of motion. LYMPHATICS: No significant lymphadenopathy is noted PSYCHIATRIC: Normal psychiatric evaluation. Limitations: no limitations Course Vital Signs 12/04/20 13:01 Temperature 97.4 F L Pulse Rate 98 Respiratory 18 Rate Blood Pressure 115/84 O2 Sat by Pulse 98 Oximetry Medical Decision Making - Medical Decision Making EKG shows normal sinus rhythm at 95 bpm MI interval 290 QRS is under 40 QT interval 392 QTC is 492. Patient's EKG shows ST segment depression in inferior leads as well as precordial leads V2 through V6 and ST segment elevation in aVR however patient also has a right bundle branch block I compared this EKG to previous EKG shows no significant change Patient's chest x-ray shows pleural effusion or obvious pulmonary edema. I spoke with Dr. Valente she agreed to admit the patient admitted the patient cons t cardiology. I started the patient on heparin continued heparin and aspirin Nitropaste on the floor. - Lab Data Result diagrams: 12/04/20 13:24 12/04/20 13:24 Lab Results 12/04/20 12/04/20 12/04/20 Range/Units 13:24 13:24 13:24 WBC 7.3 (3.8-10.6) k/uL RBC 3.08 L (4.30-5.90) m/uL Hgb 9.8 L (13.0-17.5) gm/dL Hct 30.8 L (39.0-53.0) % MCV 100.1 H (80.0-100.0) fL MCH 31.9 (25.0-35.0) pg MCHC 31.8 (31.0-37.0) g/dL RDW 14.2 (11.5-15.5) % Plt Count 177 (150-450) k/uL MPV 8.2 Neutrophils % 77 % Lymphocytes % 14 % Monocytes % 6 % Eosinophils % 1 % Basophils % 0 % Neutrophils # 5.6 (1.3-7.7) k/uL Lymphocytes # 1.0 (1.0-4.8) k/uL Monocytes # 0.5 (0-1.0) k/uL Eosinophils # 0.1 (0-0.7) k/uL Basophils # 0.0 (0-0.2) k/uL Macrocytosis Slight PT 10.0 (9.0-12.0) sec INR 0.9 (<1.2) APTT 20.5 L (22.0-30.0) sec Sodium 140 (137-145) mmol/L Potassium 5.0 (3.5-5.1) mmol/L Chloride 108 H (98-107) mmol/L Carbon Dioxide 22 (22-30) mmol/L Anion Gap 10 mmol/L BUN 55 H (9-20) mg/dL Creatinine 2.39 H (0.66-1.25) mg/dL Est GFR (CKD-EPI)AfAm 27 (>60 ml/min/1.73 sqM) Est GFR (CKD-EPI)NonAf 23 (>60 ml/min/1.73 sqM) Glucose 193 H (74-99) mg/dL Calcium 9.7 (8.4-10.2) mg/dL Magnesium 1.9 (1.6-2.3) mg/dL Total Bilirubin 0.3 (0.2-1.3) mg/dL AST 25 (17-59) U/L ALT 17 (4-49) U/L Alkaline Phosphatase 73 (38-126) U/L Troponin I (0.000-0.034) ng/mL Total Protein 6.6 (6.3-8.2) g/dL Albumin 3.9 (3.5-5.0) g/dL 12/04/20 Range/Units 13:24 WBC (3.8-10.6) k/uL RBC (4.30-5.90) m/uL Hgb (13.0-17.5) gm/dL Hct (39.0-53.0) % MCV (80.0-100.0) fL MCH (25.0-35.0) pg MCHC (31.0-37.0) g/dL RDW (11.5-15.5) % Plt Count (150-450) k/uL MPV Neutrophils % % Lymphocytes % % Monocytes % % Eosinophils % % Basophils % % Neutrophils # (1.3-7.7) k/uL Lymphocytes # (1.0-4.8) k/uL Monocytes # (0-1.0) k/uL Eosinophils # (0-0.7) k/uL Basophils # (0-0.2) k/uL Macrocytosis PT (9.0-12.0) sec INR (<1.2) APTT (22.0-30.0) sec Sodium (137-145) mmol/L Potassium (3.5-5.1) mmol/L Chloride (98-107) mmol/L Carbon Dioxide (22-30) mmol/L Anion Gap mmol/L BUN (9-20) mg/dL Creatinine (0.66-1.25) mg/dL Est GFR (CKD-EPI)AfAm (>60 ml/min/1.73 sqM) Est GFR (CKD-EPI)NonAf (>60 ml/min/1.73 sqM) Glucose (74-99) mg/dL Calcium (8.4-10.2) mg/dL Magnesium (1.6-2.3) mg/dL Total Bilirubin (0.2-1.3) mg/dL AST (17-59) U/L ALT (4-49) U/L Alkaline Phosphatase (38-126) U/L Troponin I 0.179 H* (0.000-0.034) ng/mL Total Protein (6.3-8.2) g/dL Albumin (3.5-5.0) g/dL Critical Care Time Critical Care Time: Yes Total Critical Care Time: 35 Disposition Clinical Impression: Unstable angina pectoris Disposition: ADMITTED IP TO THIS HOSP Referrals: Saroj Bradshaw DO [Primary Care Provider] - 1-2 days Time of Disposition: 14:35
[2020-12-04 13:44] LABS: Basophils % (A) 0 %; Eosinophils # (A) 0.1 k/uL (0-0.7); Eosinophils % (A) 1 %; HCT 30.8 % (39.0-53.0); HGB 9.8 gm/dL (13.0-17.5); Lymphocytes % (A) 14 %; MCH 31.9 pg (25.0-35.0); MCHC 31.8 g/dL (31.0-37.0); MCV 100.1 fL (80.0-100.0); Macrocytosis Slight; Mean Platelet Volume 8.2; Monocytes # (A) 0.5 k/uL (0-1.0); Monocytes % (A) 6 %; Neutrophils # (A) 5.6 k/uL (1.3-7.7); Neutrophils % (A) 77 %; Platelet Count 177 k/uL (150-450); RBC 3.08 m/uL (4.30-5.90); RDW 14.2 % (11.5-15.5); WBC 7.3 k/uL (3.8-10.6)
[2020-12-04 13:49] LABS: INR 0.9 (<1.2)
[2020-12-04 13:51] LABS: Albumin 3.9 g/dL (3.5-5.0); Calcium 9.7 mg/dL (8.4-10.2); Magnesium 1.9 mg/dL (1.6-2.3); Total Bilirubin 0.3 mg/dL (0.2-1.3); Total Protein 6.6 g/dL (6.3-8.2)
[2020-12-04 14:04] LABS: Partial Thromboplastin Time 20.5 sec (22.0-30.0)
--- NOTE | 2020-12-04 14:06 | XR ---
EXAMINATION TYPE: XR chest 2V DATE OF EXAM: 12/04/2020 COMPARISON: 12/30/2019 INDICATION: Chest pain TECHNIQUE: Frontal and lateral views of the chest are obtained. FINDINGS: The heart size is normal. The pulmonary vasculature is prominent. Mild bibasilar infiltrates are present. Correlate for subsegmental atelectasis. Atypical pneumonia c ould be considered. IMPRESSION: 1. Mild bibasilar infiltrates which are nonspecific. Correlate for atelectasis. Atypical pneumonia no t excluded. Follow-up can be performed as clinically indicated.
[2020-12-04] MEDS ORDERED: HEPARIN SODIUM 1,000 UN/ML (10ML VL) IV STA (14:30)
[2020-12-04] MEDS ORDERED: NITROGLYCERIN SL TABS 0.4 MG TAB SUBLINGUAL PRN (14:35)
[2020-12-04] MEDS: HEPARIN SOD,PORK IN 0.45% NACL 25,000 UNIT in 0.45% NACL 1 250ML.BAG IV SCH (14:56)
[2020-12-04] MEDS: NITROGLYCERIN OINT 1 INCH/GM PACKET TOPICAL SCH ×2 (16:30→23:32)
[2020-12-04] MEDS: METOPROLOL TARTRATE 50 MG TAB PO SCH (20:34)
[2020-12-04] MEDS: METOPROLOL TARTRATE 5 MG/5 ML VIAL IVP SCH ×2 (22:15→22:34)
--- NOTE | 2020-12-04 22:26 | P.HPIM ---
History of Present Illness H&P Date: 12/04/20 Chief Complaint: Chest pain Mr. 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 Patient states for the past 1 day he has been having chest pain on and off substernal. Last night the chest pain persisted for almost 30 minutes with mild difficulty in breathing at that time. Patient denied having any nausea vomiting or diarrhea associated with the chest pain. Patient denied having any palpitations or difficulty in breathing. He denies having any swe lling of his lower extremities. Patient denied having any recent travel. Patient denied having any fevers chills or rigors. No dysuria or hematuria. In the ER at the time of admission patient's vital signs temperature of 97.4, heart rate 98, respiratory rate 18, blood pressure 115/84 saturating at 99% on room air. He had labs done showing white count of 7.3, hemoglobin 9.8, platelets 27. Sodium 140, potassium 5, chloride 108, bicarb 22, BUN 55, creatinine 2.39. Patient had troponins done which were 0.179. Coronavirus PCR negative. Review of Systems REVIEW OF SYSTEMS: CONSTITUTIONAL: No fever, no malaise, no fatigue. HEENT: No recent visual problems or hearing problems. Denied any sore throat. CARDIOVASCULAR: As per HPI PULMONARY: no hemoptysis. GASTROINTESTINAL: No abdominal pain, vomiting , diarrhea or constipation NEUROLOGICAL: No weakness of the extremities, no syncopal episodes HEMATOLOGICAL: Denies any bleeding or petechiae. GENITOURINARY: Denies any burning micturition, frequency, or urgency. MUSCULOSKELETAL/RHEUMATOLOGICAL: Denies any joint pain, swelling, or any muscle pain. ENDOCRINE: Denies any polyuria or polydipsia. The rest of the 14-point review of systems is negative. Past Medical History Past Medical History: Hypertension Additional Past Medical History / Comment(s): Melanoma removed from R side of trunk, past fracture L wrist, hemorrhoids SBO History of Any Multi-Drug Resistant Organisms: None Reported Past Surgical History: Hernia Repair Additional Past Surgical History / Comment(s): umbilical hernia repair, colonoscopies x 2-normal, melanoma removed R side of trunk. bowel resection Past Anesthesia/Blood Transfusion Reactions: No Reported Reaction Past Psychological History: No Psychological Hx Reported Additional Psychological History / Comment(s): Pt resides alone. He uses no assistive device. He drives. Smoking Status: Former smoker Past Alcohol Use History: Occasional Additional Past Alcohol Use History / Comment(s): Pt states he smoked cigarettes and pipe in the past. He started smoking at age 19yrs and quit in 1966. Past Drug Use History: None Reported - Past Family History Father Additional Family Medical History / Comment(s): Father had heart problems. He at the age of 57yrs. Mother Family Medical History: Cancer Additional Family Medical History / Comment(s): Mother of bowel cancer at the age of 89yrs old. Medications and Allergies Home Medications Medication Instructions Recorded Confirmed Type Aspirin 81 mg PO DAILY 03/20/16 12/04/20 History Metoprolol Tartrate [Lopressor] 50 mg PO BID #60 tab 01/01/20 12/04/20 Rx Pantoprazole Sodium [Protonix] 40 mg PO DAILY #30 tablet. 01/01/20 12/04/20 Rx Spironolactone [Aldactone] 25 mg PO DAILY #30 tab 01/01/20 12/04/20 Rx lisinopriL [Zestril] 2.5 mg PO DAILY #30 tab 01/01/20 12/04/20 Rx Multivitamins, Thera [Multivitamin 1 tab PO DAILY 12/04/20 12/04/20 History (formulary)] Timolol [Betimol 0.5% Ophth Soln] 1 drop BOTH EYES DAILY 12/04/20 12/04/20 History Allergies Allergy/AdvReac Type Severity Reaction Status Date / Time bee pollen Allergy Anaphylaxis Verified 12/04/20 14:46 honey Allergy Rash/Hives Verified 12/04/20 14:46 venom-honey bee Allergy Anaphylaxis Verified 12/04/20 14:46 [bee venom (honey bee)] venom-wasp [wasp venom] Allergy Anaphylaxis Verified 12/04/20 14:46 Physical Exam Vitals: Vital Signs Temp Pulse Resp BP Pulse Ox 12/04/20 15:32 97.4 F L 90 16 97/71 99 12/04/20 15:00 90 16 97/71 99 12/04/20 14:06 92 16 113/72 99 12/04/20 13:01 97.4 F L 98 18 115/84 98 Intake and Output 12/04/20 12/04/20 12/04/20 06:59 14:59 22:59 Other: Weight 80.739 kg 80.739 kg PHYSICAL EXAMINATION: GENERAL: Eldely male lying in bed , not in any acute distress. HEENT: Pupils are round and equally reacting to light. EOMI. No scleral icterus. Mild pallor. Normocephalic, atraumatic. No pharyngeal erythema. No thyromegaly. CARDIOVASCULAR: S1 and S2 present. No murmurs, rubs, or gallops. PULMONARY: Bilateral breath sounds are positive. No wheeze or crackles. ABDOMEN: Soft, nontender, nondistended, normoactive bowel sounds. No palpable organomegaly. MUSCULOSKELETAL: No joint swelling or deformity. EXTREMITIES: No cyanosis, clubbing, or pedal edema. NEUROLOGICAL: The patient is alert and oriented x3, Gross neurological examination did not reveal any focal deficits. SKIN: No rashes. Results CBC & Chem 7: 12/04/20 13:24 12/04/20 13:24 Labs: Abnormal Lab Results - Last 24 Hours (Table) 12/04/20 12/04/20 12/04/20 Range/Units 13:24 13:24 13:24 RBC 3.08 L (4.30-5.90) m/uL Hgb 9.8 L (13.0-17.5) gm/dL Hct 30.8 L (39.0-53.0) % MCV 100.1 H (80.0-100.0) fL APTT 20.5 L (22.0-30.0) sec Chloride 108 H (98-107) mmol/L BUN 55 H (9-20) mg/dL Creatinine 2.39 H (0.66-1.25) mg/dL Glucose 193 H (74-99) mg/dL Troponin I (0.000-0.034) ng/mL 12/04/20 Range/Units 13:24 RBC (4.30-5.90) m/uL Hgb (13.0-17.5) gm/dL Hct (39.0-53.0) % MCV (80.0-100.0) fL APTT (22.0-30.0) sec Chloride (98-107) mmol/L BUN (9-20) mg/dL Creatinine (0.66-1.25) mg/dL Glucose (74-99) mg/dL Troponin I 0.179 H* (0.000-0.034) ng/mL Assessment and Plan Assessment: ASSESMENT Non-ST elevation ID Acute kidney injury Hypertension History of melanoma status post removal History of small bowel obstruction status post bowel resection History of hemorrhoids Former smoker PLAN: Patient is started on a heparin drip, cardiology has been consulted. Will order a 2D echocardiogram. Patient's creatinine is slightly elevated from his baseline, patient's baseline creatinine is between 1.5-2, his creatinine is 2.39. Patient has been restarted on all his home medications. Continue with e current medication regimen. Further recommendations to follow depending on the progress of the patient.
[2020-12-04] MEDS ORDERED: METOPROLOL TARTRATE 25 MG TAB PO STA (22:29)
[2020-12-04] MEDS ORDERED: ATORVASTATIN 40 MG TAB PO SCH (23:00)
[2020-12-04] MEDS: SODIUM CHLORIDE 0.9% 1,000 ML IV SCH (23:32)
[2020-12-05] MEDS: METOPROLOL TARTRATE 5 MG/5 ML VIAL IVP SCH ×5 (00:34→01:14)
[2020-12-05 07:50] LABS: Basophils % (A) 0 %; Eosinophils % (A) 0 %; HCT 32.6 % (39.0-53.0); HGB 10.4 gm/dL (13.0-17.5); Lymphocytes # (A) 0.8 k/uL (1.0-4.8); Lymphocytes % (A) 6 %; MCHC 31.9 g/dL (31.0-37.0); MCV 100.5 fL (80.0-100.0); Macrocytosis Slight; Mean Platelet Volume 8.4; Monocytes # (A) 0.8 k/uL (0-1.0); Monocytes % (A) 6 %; Neutrophils # (A) 11.9 k/uL (1.3-7.7); Neutrophils % (A) 87 %; Platelet Count 190 k/uL (150-450); RBC 3.24 m/uL (4.30-5.90); RDW 14.2 % (11.5-15.5); WBC 13.6 k/uL (3.8-10.6)
--- NOTE | 2020-12-05 08:09 | CONS ---
CONSULTATION Tyson Collins is an elderly 89-year-old patient who sees Dr. Mccord in the outpatient setting. He is known to have ischemic cardiomyopathy, came into the hospital with an episode of what he describes as an uncomfortable feeling in the chest on and off for a couple of days. After he arrived, his initial troponin was normal. Troponin is up to 8. He feels well at this time. I came in to see him because of elevated troponin, but the patient is quite comfortable. Denies any chest pain. He says he had much more discomfort yesterday, but feels well now. I explained to him different options, but he wishes only conservative management given his age. Patient had a question of some renal mass and his creatinine is more than 2.3 and the risk of worsening renal function is high with his situation and he does not have any overt angina. I will therefore pursue conservative management for him. He was seen by Dr. Mccord in November of 2019 and at that time also troponin was up to 3.9, and he was advised medical therapy. The patient is comfortable, asymptomatic at the time of my evaluation. PAST MEDICAL HISTORY: 1. Non-ST elevation myocardial infarction in November 2019. 2. History of some renal mass, details are unclear. 3. Evidence of hypertension. 4. He has history of some melanoma with previous surgery. MEDICATIONS: Medications at home include metoprolol tartrate 50 mg b.i.d., Protonix 40 mg daily, Aldactone 25 mg daily, lisinopril 2.5 mg daily, metronidazole 500 mg t.i.d., aspirin 81 mg daily. PHYSICAL EXAMINATION: On examination, blood pressure is 108/70, pulse rate was about 100, sinus tachycardia. HEENT: Unremarkable. Fundus was not examined by me. NECK: Supple. There is JVD of 1 cm. No carotid bruit. HEART exam reveals S1, S2 with an ejection systolic murmur at the base. Second heart sound is preserved. LUNGS revealed bilateral decent air entry with fine basal rales. ABDOMEN is soft, nontender. Lower EXTREMITIES reveal diminished pulses. No edema. CENTRAL NERVOUS SYSTEM is normal. IMPRESSION: 1. Non-ST elevation myocardial infarction in an elderly patient with multiple comorbid conditions. 2. Chronic kidney disease. 3. Probable mild aortic stenosis. 4. Ischemic cardiomyopathy with previous non ST elevation myocardial infarction. 5. Evidence of paroxysmal atrial fibrillation in the past and now in sinus rhythm. 6. Hypertension. 7. RECOMMENDATIONS: This patient was not anticoagulated because of multiple comorbid conditions during his last hospitalization. He is now in sinus rhythm. I am recommending Ranexa to be added. We will increase beta caren, add Lipitor and place him on oral nitrates and based on clinical course I will make further recommendations. Discussed my thoughts in detail with the patient. He wishes only conservative management at this time. I will add a small dose of Ranexa, switch him to Imdur from nitro paste and if the rate is high, we will try intravenous Lopressor 2.5 mg x2. MMODL / IJN: [id number] /
[2020-12-05 08:26] LABS: Calcium 9.3 mg/dL (8.4-10.2); Potassium 5.5 mmol/L (3.5-5.1)
[2020-12-05] MEDS ORDERED: ASPIRIN 81 MG PO SCH (09:00)
[2020-12-05] MEDS ORDERED: SPIRONOLACTONE 25 MG TAB PO SCH (09:00)
[2020-12-05] MEDS ORDERED: ASPIRIN 325 MG TAB PO SCH (09:00)
[2020-12-05] MEDS: ASPIRIN 81 MG PO SCH (09:12)
[2020-12-05] MEDS: METOPROLOL TARTRATE 50 MG TAB PO SCH (09:12)
[2020-12-05] MEDS: PANTOPRAZOLE 40 MG TABLET PO SCH (09:12)
[2020-12-05] MEDS: MULTIVITAMINS, THERA 1 EACH TAB PO SCH (09:13)
[2020-12-05] MEDS: ATORVASTATIN 40 MG TAB PO SCH (09:13)
[2020-12-05] MEDS: TIMOLOL 0.5% OPHTH DROPS 5 ML BTL BOTH EYES SCH (09:13)
[2020-12-05] MEDS: RANOLAZINE 500 MG TAB.ER.12H PO SCH ×2 (09:13→20:43)
[2020-12-05] MEDS ORDERED: ISOSORBIDE MONONITRATE ER 30 MG TAB.ER.24H PO SCH (12:00)
--- NOTE | 2020-12-05 14:21 | PN ---
PROGRESS NOTE Mr. Collnis is doing better today. Since last night when I came into see him, his chest pain has resolved completely. He is comfortable resting and has no chest pain, shortness of breath, or palpitations at this time. He is comfortable. He wishes conservative management, does not wish to have any invasive procedures performed. Vitals are stable. I am recommending that we continue current medical regimen and gradual increase in activity. He was slightly tachycardic. I therefore suggested that we will increase the metoprolol to 50 mg b.i.d. and also I have added ranolazine 500 mg b.i.d. to his regimen. His laboratory data suggests that his troponin has gone up to 22. I discussed this again with the patient, but he wishes to pursue medical therapy. No intervention and has no chest pain whatsoever. He has multiple comorbid conditions including renal failure with creatinine of 2.39. Prognosis remains guarded. MMRUBIOL / ORIN: [id number] /
--- NOTE | 2020-12-05 16:08 | P.PN ---
Subjective Progress Note Date: 12/05/20 Principal diagnosis: Non-ST elevation PR Mr. 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 Patient states for the past 1 day he has been having chest pain on and off substernal. Last night the chest pain persisted for almost 30 minutes with mild difficulty in breathing at that time. Patient denied having any nausea vomiting or diarrhea associated with the chest pain. Patient denied having any palpitations or difficulty in breathing. He denies having any swelling of his lower extremities. Patient denied having any recent travel. Patient denied having any fevers chills or rigors. No dysuria or hematuria. In the ER at the time of admission patient's vital signs temperature of 97.4, heart rate 98, respiratory rate 18, blood pressure 115/84 saturating at 99% on room air. He had labs done showing white count of 7.3, hemoglobin 9.8, platelets 27. Sodium 140, potassium 5, chloride 108, bicarb 22, BUN 55, creatinine 2.39. Patient had troponins done which were 0.179. Coronavirus PCR negative. On 12/05/2020 - patient is seen and examined at the bedside. Patient states that his chest discomfort has resolved completely and he denies having any difficulty in breathing or palpitations. Cardiology Dr. ROBERT Jennings has evaluated him last night as there was uptrend of his troponins. Patient wishes for conservative management and does not want any invasive procedures done so he is currently being managed medically. On reviewing the vitals from this morning temperature 97.8, heart rate 75, respiratory rate 18, blood pressure 81/50, saturating at 98% on room air. On reviewing the labs from this morning white count of 13.6, hemoglobin 10.4, platelets 190. Sodium 138, blood pressure by 0.5, chloride 110, bicarb 18, BUN 53, creatinine 2.25. Active Medications Aspirin (Aspirin 81 Mg) 81 mg PO DAILY [facility] Last Admin: 12/05/20 09:12 Dose: 81 mg Documented by: Atorvastatin Calcium (Atorvastatin 40 Mg Tab) 40 mg PO DAILY@0900 [facility] Last Admin: 12/05/20 09:13 Dose: 40 mg Documented by: Heparin Sodium/Sodium Chloride (25,000 unit/ Sodium Chloride) 250 mls @ 9.689 mls/hr IV .Q24H [facility]; Protocol Last Titration: 12/04/20 20:12 Dose: 12 units/kg/hr, 9.689 mls/hr Documented by: Sodium Chloride (Saline 0.9%) 1,000 mls @ 75 mls/hr IV .[id number] [facility] Last Admin: 12/04/20 23:32 Dose: 75 mls/hr Documented by: Metoprolol Tartrate (Metoprolol Tartrate 25 Mg Tab) 25 mg PO BID [facility] Multivitamins (Multivitamins, Thera 1 Each Tab) 1 each PO DAILY [facility] Last Admin: 12/05/20 09:13 Dose: 1 each Documented by: Nitroglycerin (Nitroglycerin Sl Tabs 0.4 Mg Tab) 0.4 mg SUBLINGUAL Q5M PRN PRN Reason: Chest Pain Pantoprazole Sodium (Pantoprazole 40 Mg Tablet) 40 mg PO DAILY [facility] Last Admin: 12/05/20 09:12 Dose: 40 mg Documented by: Ranolazine (Ranolazine 500 Mg Tab.Er.12h) 500 mg PO Q12HR [facility] Last Admin: 12/05/20 09:13 Dose: 500 mg Documented by: Timolol Maleate (Timolol 0.5% Ophth Drops 5 Ml Btl) 1 drops BOTH EYES DAILY [facility] Last Admin: 12/05/20 09:13 Dose: 1 drops Documented by: Objective - Vital Signs Vital signs: Vital Signs Temp 97.8 F 12/05/20 12:00 Pulse 75 12/05/20 12:00 Resp 18 12/05/20 12:00 BP 73/46 12/05/20 12:00 Pulse Ox 98 12/05/20 12:00 Intake & Output 12/04/20 12/05/20 12/05/20 18:59 06:59 18:59 Intake Total 240 51.029 240 Balance 240 51.029 240 Weight 80.739 kg 79.6 kg Intake: Intake, IV Titration 51.029 Amount Heparin Sod,Pork in 0.45% 51.029 NaCl 25,000 unit In 0.45 % NaCl 1 250ml.bag @ 12 UNITS/KG/HR 9.689 mls/hr IV .Q24H [facility] Rx#: [id number] Oral 240 240 Other: Voiding Method Bedside Commode # Voids 1 # Bowel Movements 1 - Exam PHYSICAL EXAMINATION: GENERAL: Eldely male sitting up in a chair by the bedside, not in any acute distress. HEENT: Pupils are round and equally reacting to light. EOMI. No scleral icterus. Mild pallor. CARDIOVASCULAR: S1 and S2 present. No murmurs, rubs, or gallops. PULMONARY: Bilateral breath sounds are positive. No wheeze or crackles. ABDOMEN: Soft, nontender, nondistended, normoactive bowel sounds. No palpable organomegaly. MUSCULOSKELETAL: No joint swelling or deformity. EXTREMITIES: No cyanosis, clubbing, or pedal edema. NEUROLOGICAL: The patient is alert and oriented x3, Gross neurological examination did not reveal any focal deficits. SKIN: No rashes. - Labs CBC & Chem 7: 12/05/20 07:09 12/05/20 07:09 Labs: Abnormal Lab Results - Last 24 Hours (Table) 12/04/20 12/04/20 12/04/20 Range/Units 13:24 13:24 13:24 WBC (3.8-10.6) k/uL RBC 3.08 L (4.30-5.90) m/uL Hgb 9.8 L (13.0-17.5) gm/dL Hct 30.8 L (39.0-53.0) % MCV 100.1 H (80.0-100.0) fL Neutrophils # (1.3-7.7) k/uL Lymphocytes # (1.0-4.8) k/uL APTT 20.5 L (22.0-30.0) sec Potassium (3.5-5.1) mmol/L Chloride 108 H (98-107) mmol/L Carbon Dioxide (22-30) mmol/L BUN 55 H (9-20) mg/dL Creatinine 2.39 H (0.66-1.25) mg/dL Glucose 193 H (74-99) mg/dL Troponin I (0.000-0.034) ng/mL HDL Cholesterol (40-60) mg/dL 12/04/20 12/04/20 12/04/20 Range/Units 13:24 16:38 19:19 WBC (3.8-10.6) k/uL RBC (4.30-5.90) m/uL Hgb (13.0-17.5) gm/dL Hct (39.0-53.0) % MCV (80.0-100.0) fL Neutrophils # (1.3-7.7) k/uL Lymphocytes # (1.0-4.8) k/uL APTT (22.0-30.0) sec Potassium (3.5-5.1) mmol/L Chloride (98-107) mmol/L Carbon Dioxide (22-30) mmol/L BUN (9-20) mg/dL Creatinine (0.66-1.25) mg/dL Glucose (74-99) mg/dL Troponin I 0.179 H* 2.310 H* 8.670 H* (0.000-0.034) ng/mL HDL Cholesterol (40-60) mg/dL 12/04/20 12/05/20 12/05/20 Range/Units 19:19 07:09 07:09 WBC (3.8-10.6) k/uL RBC (4.30-5.90) m/uL Hgb (13.0-17.5) gm/dL Hct (39.0-53.0) % MCV (80.0-100.0) fL Neutrophils # (1.3-7.7) k/uL Lymphocytes # (1.0-4.8) k/uL APTT 53.2 H 50.2 H (22.0-30.0) sec Potassium 5.5 H (3.5-5.1) mmol/L Chloride 110 H (98-107) mmol/L Carbon Dioxide 18 L (22-30) mmol/L BUN 53 H (9-20) mg/dL Creatinine 2.25 H (0.66-1.25) mg/dL Glucose 150 H (74-99) mg/dL Troponin I (0.000-0.034) ng/mL HDL Cholesterol 36 L (40-60) mg/dL 12/05/20 12/05/20 Range/Units 07:09 07:09 WBC 13.6 H (3.8-10.6) k/uL RBC 3.24 L (4.30-5.90) m/uL Hgb 10.4 L (13.0-17.5) gm/dL Hct 32.6 L (39.0-53.0) % MCV 100.5 H (80.0-100.0) fL Neutrophils # 11.9 H (1.3-7.7) k/uL Lymphocytes # 0.8 L (1.0-4.8) k/uL APTT (22.0-30.0) sec Potassium (3.5-5.1) mmol/L Chloride (98-107) mmol/L Carbon Dioxide (22-30) mmol/L BUN (9-20) mg/dL Creatinine (0.66-1.25) mg/dL Glucose (74-99) mg/dL Troponin I 22.300 H* (0.000-0.034) ng/mL HDL Cholesterol (40-60) mg/dL Assessment and Plan Assessment: ASSESMENT Non-ST elevation PR Acute kidney injury Hypertension History of melanoma status post removal History of small bowel obstruction status post bowel resection History of hemorrhoids Former smoker PLAN: Patient to be continued on heparin drip for now. Patient's Lopressor has been increased, patient's blood pressure has been slightly on the lower side so will discontinue Imdur and Zestril. Patient denies having any dizziness and is asymptomatic. We will continue with aspirin and statin. Patient's creatinine has been trending down slightly. For now we'll continue with medical management as the patient wishes conservative management. Further recommendations to follow depending on the progress of the patient.
[2020-12-05] MEDS: HEPARIN SOD,PORK IN 0.45% NACL 25,000 UNIT in 0.45% NACL 1 250ML.BAG IV SCH (16:09)
[2020-12-05] MEDS: SODIUM CHLORIDE 0.9% 1,000 ML IV SCH (16:10)
[2020-12-05] MEDS: METOPROLOL TARTRATE 25 MG TAB PO SCH (20:43)
[2020-12-05] MEDS ORDERED: ACETAMINOPHEN TAB 325 MG TAB PO PRN (20:49)
[2020-12-06] MEDS: SODIUM CHLORIDE 0.9% 1,000 ML IV SCH ×2 (05:53→18:31)
[2020-12-06 08:11] LABS: Basophils % (A) 0 %; Eosinophils % (A) 0 %; HCT 31.4 % (39.0-53.0); HGB 9.7 gm/dL (13.0-17.5); Hypochromasia Moderate; Lymphocytes # (A) 0.7 k/uL (1.0-4.8); Lymphocytes % (A) 5 %; MCH 31.9 pg (25.0-35.0); MCHC 30.9 g/dL (31.0-37.0); MCV 103.5 fL (80.0-100.0); Macrocytosis Slight; Mean Platelet Volume 8.8; Monocytes # (A) 0.9 k/uL (0-1.0); Monocytes % (A) 6 %; Neutrophils # (A) 11.9 k/uL (1.3-7.7); Neutrophils % (A) 87 %; Platelet Count 151 k/uL (150-450); RBC 3.04 m/uL (4.30-5.90); RDW 14.2 % (11.5-15.5); WBC 13.7 k/uL (3.8-10.6)
[2020-12-06 08:38] LABS: Calcium 8.6 mg/dL (8.4-10.2)
[2020-12-06] MEDS: ASPIRIN 81 MG PO SCH (08:52)
[2020-12-06] MEDS: ATORVASTATIN 40 MG TAB PO SCH (08:53)
[2020-12-06] MEDS: MULTIVITAMINS, THERA 1 EACH TAB PO SCH (08:53)
[2020-12-06] MEDS: PANTOPRAZOLE 40 MG TABLET PO SCH (08:53)
[2020-12-06] MEDS: TIMOLOL 0.5% OPHTH DROPS 5 ML BTL BOTH EYES SCH (08:53)
[2020-12-06 09:09] LABS: Potassium 4.9 mmol/L (3.5-5.1)
[2020-12-06] MEDS: METOPROLOL TARTRATE 25 MG TAB PO SCH (09:26)
[2020-12-06] MEDS: RANOLAZINE 500 MG TAB.ER.12H PO SCH ×2 (09:26→20:24)
--- NOTE | 2020-12-06 10:29 | ECHOF ---
Referral Reason:NSTEMI MEASUREMENTS -------- HEIGHT: 175.3 cm WEIGHT: 81.2 kg BP: 100/72 RVIDd: 2.7 cm (< 3.3) IVSd: 1.0 cm (0.6 - 1.1) LVIDd: 5.1 cm (3.9 - 5.3) LVPWd: 1.3 cm (0.6 - 1.1) IVSs: 1.6 cm LVIDs: 4.3 cm LVPWs: 1.5 cm LAESV Index (A-L): 39.48 ml/m Ao Diam: 3.2 cm (2.0 - 3.7) AV Cusp: 0.8 cm (1.5 - 2.6) LA Diam: 3.5 cm (2.7 - 3.8) MV EXCURSION: 12.842 mm (> 18.000) MV EF SLOPE: 103 mm/s (70 - 150) EPSS: 1.9 cm MV E Pranay: 1.01 m/s MV DecT: 152 ms MV A Pranay: 0.28 m/s MV E/A Ratio: 3.64 AV maxP.40 mmHg AV meanP.37 mmHg AR PHT: 1013 ms RAP: 5.00 mmHg RVSP: 45.05 mmHg FINDINGS -------- This was a technically difficult study with suboptimal views. The left ventricular size is normal. Left ventricular wall thickness is normal. There is severe g lobal hypokinesis of LV . Overall left ventricular systolic function is severely impaired with, an EF between 20 - 25 %. Increased LAP Grade 3 Diastolic Dysfunction. The right ventricle is normal in size. LA is moderately dilated 34-39 ml/m2 The right atrial size is normal. Lumason used Aortic valve is trileaflet and is severely thickened. Trace amount of aortic regurgitation. Ther e is mild aortic stenosis present. Peak/mean gradient across the Aortic Valve is 11.40mmHg / 6.37mm Hg. Due to low EF gradient is not accurate. The mitral valve is normal. The mitral valve leaflets are mildly thickened. Mild mitral annular c alcification present. Kkgrenma-be-vjysjq mitral regurgitation is present. Can not rule out Fail M V Leaflet vs vegetation. The tricuspid valve appears structurally normal. No regurgitation noted There is mild pulmonary h ypertension. The right ventricular systolic pressure, as measured by Doppler, is 45.05mmHg. There is no pulmonic regurgitation present. The aortic root size is normal. Normal inferior vena cava with normal inspiratory collapse consistent with estimated right atrial pre ssure of 5 mmHg. There is no pericardial effusion. CONCLUSIONS -------- 1. The left ventricular size is normal. 2. Left ventricular wall thickness is normal. 3. There is severe global hypokinesis of LV . 4. Overall left ventricular systolic function is severely impaired with, an EF between 20 - 25 %. 5. Increased LAP Grade 3 Diastolic Dysfunction. 6. LA is moderately dilated 34-39 ml/m2 7. Aortic valve is trileaflet and is severely thickened. 8. Trace amount of aortic regurgitation. 9. There is mild aortic stenosis present. 10. Peak/mean gradient across the Aortic Valve is 11.40mmHg / 6.37mmHg. Due to low EF gradient is not accurate. 11. The mitral valve leaflets are mildly thickened. 12. Mild mitral annular calcification present. 13. Yyuorevq-kp-hxvqck mitral regurgitation is present. 14. Can not rule out Fail MV Leaflet vs vegetation. 15. No regurgitation noted 16. There is mild pulmonary hypertension. 17. The right ventricular systolic pressure, as measured by Doppler, is 45.05mmHg. 18. There is no pericardial effusion. CRANE HOOKER: Latoya Mendenhall RDCS
--- NOTE | 2020-12-06 12:15 | P.PN ---
Subjective Progress Note Date: 12/06/20 This is an 89-year-old gentleman admitted with acute non-STEMI, acute renal failure, hypertension and multiple other medical issues. Declined aggressive/invasive measures including cardiac catheterization and requests conservative management only. Renal function worsening, BUN 60, creatinine 2.52, maintained on IV fluid hydration. Heparin drip discontinued yesterday..Complains of increased shortness of breath this morning. Telemetry sinus rhythm. Echo reporting severe global hypokinesis of LV, severely impaired left ventricular systolic function, EF down to 20-25%, aortic valve trileaflet, severely thickened, mild aortic stenosis, moderate to severe mitral regurgitation , unable to rule out fail MV leaflet versus vegetation , mild pulmonary hypertension ;compaired to 1 year ago, EF had been 30-35%, mild aortic stenosis, aortic valve trileaflet, moderately thickened, mild mitral regurgitation. Tachycardic, metoprolol increased yesterday, maintained on Ranexa. Borderline hypotensive, Imdur and sue inhibitor discontinued yesterday, systolic blood pressure currently in the low 90s. Objective - Vital Signs Vital signs: Vital Signs Temp 97 F L 12/06/20 08:32 Pulse 105 H 12/06/20 08:32 Resp 22 12/06/20 08:32 BP 94/68 12/06/20 08:32 Pulse Ox 95 12/06/20 08:32 Intake & Output 12/05/20 12/06/20 12/06/20 18:59 06:59 18:59 Intake Total 1153.296 Output Total 600 Balance 1153.296 -600 Weight 81.4 kg Intake: Intake, IV Titration 193.296 Amount Heparin Sod,Pork in 0.45% 193.296 NaCl 25,000 unit In 0.45 % NaCl 1 250ml.bag @ 12 UNITS/KG/HR 9.689 mls/hr IV .Q24H [facility] Rx#: [id number] Oral 960 Output: Urine 600 Other: Voiding Method Bedside Commode # Bowel Movements 1 - Exam PHYSICAL EXAMINATION: GENERAL: Sitting up in bed, no acute distress. HEENT: Pupils are round and equally reacting to light. EOMI. No scleral icterus. Mild pallor. CARDIOVASCULAR: S1 and S2 present. Systolic murmur, no rubs, or gallops. Tachycardic. PULMONARY: Bilateral breath sounds are positive. No wheeze or crackles. ABDOMEN: Soft, nontender, nondistended, normoactive bowel sounds. No palpable organomegaly. EXTREMITIES: No cyanosis, clubbing, or pedal edema. NEUROLOGICAL: Cranial nerves II through XII grossly intact, no focal deficits. Strength and sensation grossly intact SKIN: No rashes, warm and dry. - Labs CBC & Chem 7: 12/06/20 07:07 12/06/20 07:07 Labs: Abnormal Lab Results - Last 24 Hours (Table) 12/06/20 12/06/20 12/06/20 Range/Units 07:07 07:07 07:07 WBC 13.7 H (3.8-10.6) k/uL RBC 3.04 L (4.30-5.90) m/uL Hgb 9.7 L (13.0-17.5) gm/dL Hct 31.4 L (39.0-53.0) % MCV 103.5 H (80.0-100.0) fL MCHC 30.9 L (31.0-37.0) g/dL Neutrophils # 11.9 H (1.3-7.7) k/uL Lymphocytes # 0.7 L (1.0-4.8) k/uL APTT 54.1 H (22.0-30.0) sec Chloride 110 H (98-107) mmol/L Carbon Dioxide 15 L (22-30) mmol/L BUN 60 H (9-20) mg/dL Creatinine 2.52 H (0.66-1.25) mg/dL Glucose 138 H (74-99) mg/dL Assessment and Plan Assessment: Acute Non-ST elevation IN Acute renal failure Hypertension History of melanoma status post removal History of small bowel obstruction status post bowel resection History of hemorrhoids Former smoker Plan: Continue on current medication regime ,monitoring and symptomatic treatment. Maximizing medical therapy. Gentle IV fluid hydration. Follow closely with cardiology. Close monitoring of blood pressure, renal function with repeat labs ordered for a.m The impression and plan of care has been dictated as directed. : I performed a history and examination of this patient, discussed the same with the dictator. I agree with the dictator's note ,documented as a scribe. Any additional findings or plans will be noted..
--- NOTE | 2020-12-06 13:39 | P.PN ---
Subjective This is a pleasant 89-year-old male past medical history significant for ischemic cardiomyopathy, history of hypertension, former nicotine dependence. He follows in the office with Dr. Mccord. We have been asked to see in consultation for NSTEMI. Patient presented to the hospital with complaints of chest pain. Troponin elevated at 2.3, 8.6, 22.3. Patient was explained his different options and he wished to continue with conservative management given his age. 12/06/2020: Patient seen and examined at bedside. No acute distress. Denies chest pain and shortness of breath Echocardiogram revealed EF 20-25%, grade 3 diastolic dysfunction, LA is mildly dilated, mild aortic stenosis with a mean gradient of 6, trace aortic regurgitation, moderate to severe mitral regurgitation, Cannot rule out Fail MV leaflet vs Vegetation, mild pulmonary hypertension PHYSICAL EXAMINATION Blood pressure 94/68 heart rate 105 afebrile and maintaining oxygen saturation 95% on room air CONSTITUTIONAL: No apparent distress. HEENT: Head is normocephalic. No JVD. No carotid bruit. CHEST EXAMINATION: Lungs are diminished bilaterally to auscultation. No chest wall tenderness is noted on palpation or with deep breathing. HEART EXAMINATION: Regular rate and rhythm. S1, S2 heard. No murmurs, gallops or rub. ABDOMEN: Soft, nontender. Positive bowel sounds. EXTREMITIES: 2+ peripheral pulses, no lower extremity edema and no calf tenderness. NEUROLOGIC EXAMINATION: Patient is awake, alert and oriented x3. ASSESSMENT NSTEMI History of renal mass Chronic Kidney Disease Ischemic cardiomyopathy History of Hypertension- hypotensive here. ACEI held due to hypotension Former nicotine dependence PLAN -Obtained 2D echocardiogram with results above -Patient continues to wish only conservative management at this time -Patient's BP dropped 70s/50s after 25mg metoprolol tartrate given and symptomatic. will decrease metoprolol 12.5mg BID and continue to monitor and adjust as needed -Discontinue heparin drip, patient on heparin for 48 hours -Will continue to monitor patient for another day Nurse Practitioner note has been reviewed, I agree with a documented findings and plan of care. Patient was seen and examined. Objective - Vital Signs Vital signs: Vital Signs Temp 97.6 F 12/06/20 11:59 Pulse 92 12/06/20 11:59 Resp 20 12/06/20 11:59 BP 74/58 12/06/20 11:59 Pulse Ox 99 12/06/20 11:59 Intake & Output 12/05/20 12/06/20 12/06/20 18:59 06:59 18:59 Intake Total 1153.296 Output Total 600 Balance 1153.296 -600 Weight 81.4 kg Intake: Intake, IV Titration 193.296 Amount Heparin Sod,Pork in 0.45% 193.296 NaCl 25,000 unit In 0.45 % NaCl 1 250ml.bag @ 12 UNITS/KG/HR 9.689 mls/hr IV .Q24H [facility] Rx#: [id number] Oral 960 Output: Urine 600 Other: Voiding Method Bedside Commode # Bowel Movements 1 - Labs CBC & Chem 7: 12/06/20 07:07 12/06/20 07:07 Labs: Abnormal Lab Results - Last 24 Hours (Table) 12/06/20 12/06/20 12/06/20 Range/Units 07:07 07:07 07:07 WBC 13.7 H (3.8-10.6) k/uL RBC 3.04 L (4.30-5.90) m/uL Hgb 9.7 L (13.0-17.5) gm/dL Hct 31.4 L (39.0-53.0) % MCV 103.5 H (80.0-100.0) fL MCHC 30.9 L (31.0-37.0) g/dL Neutrophils # 11.9 H (1.3-7.7) k/uL Lymphocytes # 0.7 L (1.0-4.8) k/uL APTT 54.1 H (22.0-30.0) sec Chloride 110 H (98-107) mmol/L Carbon Dioxide 15 L (22-30) mmol/L BUN 60 H (9-20) mg/dL Creatinine 2.52 H (0.66-1.25) mg/dL Glucose 138 H (74-99) mg/dL
[2020-12-06] MEDS: METOPROLOL TARTRATE 12.5 MG TAB PO SCH (20:24)
[2020-12-07 08:11] LABS: Basophils % (A) 0 %; Eosinophils # (A) 0.1 k/uL (0-0.7); Eosinophils % (A) 1 %; HCT 26.3 % (39.0-53.0); HGB 8.5 gm/dL (13.0-17.5); Hypochromasia Slight; Lymphocytes # (A) 0.6 k/uL (1.0-4.8); Lymphocytes % (A) 6 %; MCH 32.7 pg (25.0-35.0); MCHC 32.2 g/dL (31.0-37.0); MCV 101.6 fL (80.0-100.0); Macrocytosis Slight; Mean Platelet Volume 8.5; Monocytes # (A) 0.7 k/uL (0-1.0); Monocytes % (A) 7 %; Neutrophils # (A) 8.3 k/uL (1.3-7.7); Neutrophils % (A) 85 %; Platelet Count 144 k/uL (150-450); RBC 2.59 m/uL (4.30-5.90); RDW 14.6 % (11.5-15.5); WBC 9.8 k/uL (3.8-10.6)
[2020-12-07 08:35] LABS: Calcium 8.1 mg/dL (8.4-10.2)
[2020-12-07] MEDS: MULTIVITAMINS, THERA 1 EACH TAB PO SCH (08:54)
[2020-12-07] MEDS: METOPROLOL TARTRATE 12.5 MG TAB PO SCH ×2 (08:54→20:09)
[2020-12-07] MEDS: RANOLAZINE 500 MG TAB.ER.12H PO SCH ×2 (08:55→20:08)
[2020-12-07] MEDS: SODIUM CHLORIDE 0.9% 1,000 ML IV SCH (08:55)
[2020-12-07] MEDS: ASPIRIN 81 MG PO SCH (08:55)
[2020-12-07] MEDS: TIMOLOL 0.5% OPHTH DROPS 5 ML BTL BOTH EYES SCH (08:55)
[2020-12-07] MEDS: ATORVASTATIN 40 MG TAB PO SCH (08:55)
[2020-12-07] MEDS: PANTOPRAZOLE 40 MG TABLET PO SCH (08:55)
--- NOTE | 2020-12-07 11:59 | P.PN ---
Subjective This is a pleasant 89-year-old male past medical history significant for ischemic cardiomyopathy, history of hypertension, former nicotine dependence. He follows in the office with Dr. Mccord. We have been asked to see in consultation for NSTEMI. Patient presented to the hospital with complaints of chest pain. Troponin elevated at 2.3, 8.6, 22.3. Patient was explained his different options and he wished to continue with conservative management given his age. 12/06/2020: Patient seen and examined at bedside. No acute distress. Denies chest pain and shortness of breath Echocardiogram revealed EF 20-25%, grade 3 diastolic dysfunction, LA is mildly dilated, mild aortic stenosis with a mean gradient of 6mmHg, trace aortic regurgitation, moderate to severe mitral regurgitation, mild pulmonary hypertension, no pericardial effusion. -Patient's BP dropped 70s/50s after 25mg metoprolol tartrate given and symptomatic. metoprolol was decreased to 12.5mg BID 12/07/20: Patient seen and examined at bedside, no acute distress, sitting up in the bedside chair. Denies chest pain or shortness of breath. Denies dizziness or lightheadedness. Laboratory data review WBC 9.8, hemoglobin 8.5, platelets 144, sodium 137, potassium 5.0, serum creatinine 2.87 (2.57 yesterday), BUN 69. Telemetry reviewed, patient in sinus mechanism HR 80s-115. PHYSICAL EXAMINATION Blood pressure 107/67 heart rate 80-100 afebrile and maintaining oxygen satura tion 95% on room air CONSTITUTIONAL: No apparent distress. HEENT: Head is normocephalic. No JVD. No carotid bruit. CHEST EXAMINATION: Lungs are diminished bilaterally to auscultation. No chest wall tenderness is noted on palpation or with deep breathing. HEART EXAMINATION: Regular rate and rhythm. S1, S2 heard. No murmurs, gallops or rub. ABDOMEN: Soft, nontender. Positive bowel sounds. EXTREMITIES: 2+ peripheral pulses, no lower extremity edema and no calf tenderness. NEUROLOGIC EXAMINATION: Patient is awake, alert and oriented x3. ASSESSMENT NSTEMI History of renal mass Acute on Chronic Kidney Disease Ischemic cardiomyopathy History of Hypertension- hypotensive here. ACEI held due to hypotension and acute kidney injury Former nicotine dependence PLAN -Patient continues to wish only conservative management at this time, we will continue medical therapy -From cardiology perspective, patient is stable for discharge with medical therapy. No further changes at this time. -Recommend continuing metoprolol tartrate 12.5mg BID, aspirin, statin, Ranexa -Patient should follow up with Dr. Mccord outpatient. Nurse Practitioner note has been reviewed, I agree with a documented findings and plan of care. Patient was seen and examined. Objective - Vital Signs Vital signs: Vital Signs Temp 97.7 F 12/07/20 08:00 Pulse 113 H 12/07/20 08:00 Resp 20 12/07/20 08:00 BP 107/67 12/07/20 08:00 Pulse Ox 98 12/07/20 08:00 Intake & Output 12/06/20 12/07/20 12/07/20 18:59 06:59 18:59 Intake Total 675 Balance 675 Weight 82.8 kg Intake: Intake, IV Titration 250 Amount Sodium Chloride 0.9% 1, 250 000 ml @ 50 mls/hr IV . Q20H [facility] Rx#:[id number] Oral 425 Other: Voiding Method Bedside Commode # Voids 2 1 1 # Bowel Movements 1 - Labs CBC & Chem 7: 12/07/20 07:36 12/07/20 07:36 Labs: Abnormal Lab Results - Last 24 Hours (Table) 12/07/20 12/07/20 Range/Units 07:36 07:36 RBC 2.59 L (4.30-5.90) m/uL Hgb 8.5 L (13.0-17.5) gm/dL Hct 26.3 L (39.0-53.0) % MCV 101.6 H (80.0-100.0) fL Plt Count 144 L (150-450) k/uL Neutrophils # 8.3 H (1.3-7.7) k/uL Lymphocytes # 0.6 L (1.0-4.8) k/uL Chloride 110 H (98-107) mmol/L Carbon Dioxide 17 L (22-30) mmol/L BUN 69 H (9-20) mg/dL Creatinine 2.87 H (0.66-1.25) mg/dL Glucose 129 H (74-99) mg/dL Calcium 8.1 L (8.4-10.2) mg/dL
--- NOTE | 2020-12-07 12:26 | P.PN ---
Subjective Progress Note Date: 12/07/20 This is an 89-year-old gentleman admitted with acute non-STEMI, acute renal failure, hypertension and multiple other medical issues. Declined aggressive/invasive measures including cardiac catheterization and requests conservative management only. Renal function worsening, BUN 60, creatinine 2.52, maintained on IV fluid hydration. Heparin drip discontinued yesterday..Complains of increased shortness of breath this morning. Telemetry sinus rhythm. Echo reporting severe global hypokinesis of LV, severely impaired left ventricular systolic function, EF down to 20-25%, aortic valve trileaflet, severely thickened, mild aortic stenosis, moderate to severe mitral regurgitation , unable to rule out fail MV leaflet versus vegetation , mild pulmonary hypertension ;compaired to 1 year ago, EF had been 30-35%, mild aortic stenosis, aortic valve trileaflet, moderately thickened, mild mitral regurgitation. Tachycardic, metoprolol increased yesterday, maintained on Ranexa. Borderline hypotensive, Imdur and sergei inhibitor discontinued yesterday, systolic blood pressure currently in the low 90s. 12/07/2020 worsening renal function, BUN 69 ,creatinine 2.87 sinus rhythm to sinus tachycardia with heart rate up into the 1 teens as per telemetry.Maintaining O2 sats in the 90s on room air. Afebrile, normal WBC. Systolic blood pressures ranging from 90s to 1teens. SERGEI inhibitor on hold related to hypotension and renal function. Hemoglobin and platelets trending down, 8.5/144. Denies chest pain, palpitations or shortness of breath. Objective - Vital Signs Vital signs: Vital Signs Temp 97.7 F 12/07/20 08:00 Pulse 113 H 12/07/20 08:00 Resp 20 12/07/20 08:00 BP 107/67 12/07/20 08:00 Pulse Ox 98 12/07/20 08:00 Intake & Output 12/06/20 12/07/20 12/07/20 18:59 06:59 18:59 Intake Total 675 Balance 675 Weight 82.8 kg Intake: Intake, IV Titration 250 Amount Sodium Chloride 0.9% 1, 250 000 ml @ 50 mls/hr IV . Q20H [facility] Rx#:[id number] Oral 425 Other: Voiding Method Bedside Commode # Voids 2 1 1 # Bowel Movements 1 - Exam PHYSICAL EXAMINATION: GENERAL: Sitting up in bed, no acute distress. HEENT: Pupils are round and equally reacting to light. EOMI. No scleral icterus. Mild pallor. CARDIOVASCULAR: S1 and S2 present. Systolic murmur, no rubs, or gallops. Fluctuating tachycardic. PULMONARY: Bilateral breath sounds are positive. No wheeze or crackles. ABDOMEN: Soft, nontender, nondistended, normoactive bowel sounds. No palpable organomegaly. EXTREMITIES: No cyanosis, clubbing, or pedal edema. NEUROLOGICAL: Cranial nerves II through XII grossly intact, no focal deficits. Strength and sensation grossly intact SKIN: No rashes, warm and dry. - Labs CBC & Chem 7: 12/07/20 07:36 12/07/20 07:36 Labs: Abnormal Lab Results - Last 24 Hours (Table) 12/07/20 12/07/20 Range/Units 07:36 07:36 RBC 2.59 L (4.30-5.90) m/uL Hgb 8.5 L (13.0-17.5) gm/dL Hct 26.3 L (39.0-53.0) % MCV 101.6 H (80.0-100.0) fL Plt Count 144 L (150-450) k/uL Neutrophils # 8.3 H (1.3-7.7) k/uL Lymphocytes # 0.6 L (1.0-4.8) k/uL Chloride 110 H (98-107) mmol/L Carbon Dioxide 17 L (22-30) mmol/L BUN 69 H (9-20) mg/dL Creatinine 2.87 H (0.66-1.25) mg/dL Glucose 129 H (74-99) mg/dL Calcium 8.1 L (8.4-10.2) mg/dL Assessment and Plan Assessment: Acute Non-ST elevation [place] Acute renal failure Hypertension History of melanoma status post removal History of small bowel obstruction status post bowel resection History of hemorrhoids Former smoker Plan: Continue on current medication regime ,monitoring and symptomatic treatment. Maximizing medical therapy. Gentle IV fluid hydration. Nephrology consulted. Close monitoring of renal function with repeat labs ordered for a.m. The impression and plan of care has been dictated as directed. : I performed a history and examination of this patient, discussed the same with the dictator. I agree with the dictator's note ,documented as a scribe. Any additional findings or plans will be noted..
--- NOTE | 2020-12-07 12:54 | P.NPCON ---
History of Present Illness - Reason for Consult acute renal failure, chronic renal failure - History of Present Illness Reason for consultation: Acute kidney injury on chronic kidney disease History of present illness: Patient is a 89-year-old male seen in renal consultation for acute kidney injury on chronic kidney disease. Patient has chronic kidney disease stage IV with baseline creatinine near 2 secondary to nephrosclerosis. Creatinine was 2.39 on admission and is 2.87 today. Patient presented to the hospital with chest discomfort. Troponins have been elevated. Cardiology has been following the patient. Patient's blood pressure has been on the lower side this admission. Lowest documented blood pressure was 67/41 this admission. This afternoon his blood pressure was 86/63. He is receiving normal saline. Echocardiogram revealed ejection fraction of 20-25% and moderate to severe mitral regurgitation. Lisinopril has been discontinued. He has been voiding. No hematuria. No history of diabetes. Vital signs are stable. General: The patient appeared well nourished and normally developed. HEENT: Head exam is unremarkable. Neck is without jugular venous distension. LUNGS: Breath sounds decreased. HEART: Rate and Rhythm are regular. ABDOMEN: Soft, no distention. EXTREMITITES: Trace edema. Past Medical History Past Medical History: Hypertension Additional Past Medical History / Comment(s): Melanoma removed from R side of trunk, past fracture L wrist, hemorrhoids SBO History of Any Multi-Drug Resistant Organisms: None Reported Past Surgical History: Hernia Repair Additional Past Surgical History / Comment(s): umbilical hernia repair, colonoscopies x 2-normal, melanoma removed R side of trunk. bowel resection Past Anesthesia/Blood Transfusion Reactions: No Reported Reaction Past Psychological History: No Psychological Hx Reported Additional Psychological History / Comment(s): Pt resides alone. He uses no assistive device. He drives. Smoking Status: Former smoker Past Alcohol Use History: Occasional Additional Past Alcohol Use History / Comment(s): Pt states he smoked cigarettes and pipe in the past. He started smoking at age 19yrs and quit in 1966. Past Drug Use History: None Reported - Past Family History Father Additional Family Medical History / Comment(s): Father had heart problems. He at the age of 57yrs. Mother Family Medical History: Cancer Additional Family Medical History / Comment(s): Mother of bowel cancer at the age of 89yrs old. Medications and Allergies Home Medications Medication Instructions Recorded Confirmed Type Aspirin 81 mg PO DAILY 03/20/16 12/04/20 History Pantoprazole Sodium [Protonix] 40 mg PO DAILY #30 tablet.dr 01/01/20 12/04/20 Rx Multivitamins, Thera [Multivitamin 1 tab PO DAILY 12/04/20 12/04/20 History (formulary)] Timolol [Betimol 0.5% Ophth Soln] 1 drop BOTH EYES DAILY 12/04/20 12/04/20 History Atorvastatin [Lipitor] 40 mg PO DAILY@0900 #30 tab 12/07/20 Rx Metoprolol Tartrate [Lopressor] 12.5 mg PO BID #60 tab 12/07/20 Rx Nitroglycerin Sl Tabs [Nitrostat] 0.4 mg SUBLINGUAL Q5M PRN #100 tab 12/07/20 Rx Ranolazine [Ranexa] 500 mg PO Q12HR #60 tab.er.12h 12/07/20 Rx Allergies Allergy/AdvReac Type Severity Reaction Status Date / Time bee pollen Allergy Anaphylaxis Verified 12/04/20 14:46 honey Allergy Rash/Hives Verified 12/04/20 14:46 venom-honey bee Allergy Anaphylaxis Verified 12/04/20 14:46 [bee venom (honey bee)] venom-wasp [wasp venom] Allergy Anaphylaxis Verified 12/04/20 14:46 Physical Exam Vitals: Vital Signs Temp Pulse Resp BP Pulse Ox 12/07/20 12:30 86/63 12/07/20 12:10 82/53 12/07/20 12:00 80 20 67/41 98 12/07/20 08:00 97.7 F 113 H 20 107/67 98 12/07/20 04:00 97.9 F 98 17 111/75 94 L 12/06/20 23:56 100 16 90/55 99 12/06/20 20:00 97.5 F L 85 16 156/83 97 12/06/20 16:00 97.3 F L 88 20 90/56 94 L Intake and Output 12/06/20 12/07/20 12/07/20 22:59 06:59 14:59 Other: Voiding Method Bedside Commode # Voids 1 1 1 # Bowel Movements 1 Weight 82.8 kg Results - Lab Results Most recent lab results Calcium 8.1 mg/dL (8.4-10.2) L 12/07/20 07:36 Magnesium 1.9 mg/dL (1.6-2.3) 12/04/20 13:24 12/07/20 07:36 12/07/20 07:36 Assessment and Plan Plan: Assessment: 1. Acute kidney injury secondary to ATN secondary to hypotension. Creatinine 2.87 today. Rule out urinary retention and obstructive uropathy. 2. Chronic kidney disease stage IV with baseline creatinine near 2 secondary to nephrosclerosis. 3. Acute on chronic systolic CHF with ejection fraction of 20-25% with moderate to severe mitral regurgitation. 4. Non-ST elevated myocardial infarction. Cardiology following. Patient wishes for conservative management only. 5. Metabolic acidosis secondary to acute kidney injury and IV fluids. 6. Anemia of chronic kidney disease. Rule out deficiency. Plan: Hep-Lock IV fluids. Add oral bicarb. Check bladder scan to rule out urinary retention. Check urinalysis and renal ultrasound. Add midodrine. Continue to monitor renal function and urine output. Check iron studies. Thank you for the consultation. I will continue to follow patient with you during his hospital stay.
--- NOTE | 2020-12-07 13:53 | US ---
EXAMINATION TYPE: US kidneys/renal and bladder DATE OF EXAM: 12/07/2020 COMPARISON: US, CT CLINICAL HISTORY: goran. Patient stated has adrenal mass that is being watched; renal cysts per US EXAM MEASUREMENTS: Right Kidney: 12.2 x 5.1 x 5.2 cm Left Kidney: 8.9 x 4.1 x 4.6 cm Post Void Residual Volume: patient just voided prior to portable US Right Kidney: couple renal cysts seen with largest at medial pole = 5.3 x 5.0 x 4.5cm; medial round mass isoechoic to cortex = 2.4 x 2.1 x 2.6cm . Left Kidney: couple of renal cysts seen with larger = 1.3 x 1.3 x 1.3cm; poor corticomedullary differ entiation. Bladder: area assessed but not seen There is no evidence for hydronephrosis at this point in time. No nephrolithiasis is seen. IMPRESSION: 1. There are bilateral renal cysts. There is a more solid-appearing lesion right kidney measuring 2.6 cm similar appearance to prior ultrasound. Consider CT of the abdomen.
[2020-12-07] MEDS: SODIUM BICARBONATE TAB 650 MG TAB PO SCH ×3 (14:59→20:09)
[2020-12-07] MEDS: MIDODRINE 5 MG TAB PO SCH (17:18)
[2020-12-07 22:04] LABS: Appearance,Urine Clear (Clear); Bilirubin,Urine Negative (Negative); Blood,Urine Negative (Negative); Color,Urine Yellow; Glucose,Urine (UA) Negative (Negative); Ketones,Urine Negative (Negative); Leukocyte Esterase,Urine Negative (Negative); Nitrite,Urine Negative (Negative); Protein,Urine Trace (Negative); Specific Gravity,Urine 1.019 (1.001-1.035); Urobilinogen,Urine <2.0 mg/dL (<2.0)
[2020-12-08 00:28] LABS: Ferritin 361.4 ng/mL (22.0-322.0)
[2020-12-08 00:45] LABS: % Iron Saturation 7.84 (15.00-50.00)
[2020-12-08] MEDS: MIDODRINE 5 MG TAB PO SCH ×3 (06:15→16:53)
[2020-12-08] MEDS: MULTIVITAMINS, THERA 1 EACH TAB PO SCH (08:19)
[2020-12-08] MEDS: METOPROLOL TARTRATE 12.5 MG TAB PO SCH ×2 (08:19→20:08)
[2020-12-08] MEDS: TIMOLOL 0.5% OPHTH DROPS 5 ML BTL BOTH EYES SCH (08:19)
[2020-12-08] MEDS: ATORVASTATIN 40 MG TAB PO SCH (08:19)
[2020-12-08] MEDS: RANOLAZINE 500 MG TAB.ER.12H PO SCH ×2 (08:19→20:08)
[2020-12-08] MEDS: ASPIRIN 81 MG PO SCH (08:19)
[2020-12-08] MEDS: PANTOPRAZOLE 40 MG TABLET PO SCH (08:19)
[2020-12-08] MEDS: SODIUM BICARBONATE TAB 650 MG TAB PO SCH ×3 (08:19→20:08)
[2020-12-08 08:35] LABS: Calcium 8.2 mg/dL (8.4-10.2); Magnesium 1.9 mg/dL (1.6-2.3); Potassium 4.7 mmol/L (3.5-5.1)
[2020-12-08] MEDS ORDERED: SODIUM BICARB 8.4% 50 ML SYR (1 MEQ/ML) IV STA (12:38)
[2020-12-08] MEDS ORDERED: FUROSEMIDE 10 MG/ML 10 ML VIAL IV STA (12:39)
--- NOTE | 2020-12-08 12:39 | P.PN ---
Subjective Patient is seen in follow-up for acute kidney injury on chronic kidney disease. Renal function worse. Creatinine 3.25 today. Has been voiding. Oral intake poor. Blood pressure on the lower side. On 2 L nasal cannula. Vital signs are stable. Blood pressure in the lower side. General: The patient appeared well nourished and normally developed. HEENT: Head exam is unremarkable. LUNGS: Breath sounds decreased. HEART: Rate and Rhythm are regular. ABDOMEN: Soft, no distention. EXTREMITITES: Trace edema. Objective - Vital Signs Vital signs: Vital Signs Temp 97 F L 12/08/20 11:00 Pulse 83 12/08/20 11:00 Resp 18 12/08/20 11:00 BP 85/63 12/08/20 11:00 Pulse Ox 97 12/08/20 11:00 Intake & Output 12/07/20 12/08/20 12/08/20 18:59 06:59 18:59 Intake Total 720 128 Output Total 630 Balance 720 -630 128 Weight 83.8 kg Intake: IV 10 0.9 10 Oral 720 118 Output: Urine 520 Stool 110 Other: Voiding Method Bedside Commode # Voids 2 2 1 # Bowel Movements 1 1 1 - Labs CBC & Chem 7: 12/07/20 07:36 12/08/20 07:46 Labs: Abnormal Lab Results - Last 24 Hours (Table) 12/07/20 12/07/20 12/08/20 Range/Units 07:36 21:41 07:46 Chloride 109 H (98-107) mmol/L Carbon Dioxide 14 L (22-30) mmol/L BUN 87 H (9-20) mg/dL Creatinine 3.25 H (0.66-1.25) mg/dL Glucose 140 H (74-99) mg/dL Calcium 8.2 L (8.4-10.2) mg/dL Iron 20 L (65-175) ug/dL % Saturation 7.84 L (15.00-50.00) Ferritin 361.4 H (22.0-322.0) ng/mL Urine Protein Trace H (Negative) Assessment and Plan Plan: Assessment: 1. Acute kidney injury secondary to ATN secondary to hypotension. Creatinine 3.25 today. No hydronephrosis noted on kidney ultrasound. Left kidney smaller in size. UA fairly benign. 2. Chronic kidney disease stage IV with baseline creatinine near 2 secondary to nephrosclerosis. 3. Acute on chronic systolic CHF with ejection fraction of 20-25% with moderate to severe mitral regurgitation. 4. Non-ST elevated myocardial infarction. Cardiology following. Patient wishes for conservative management only. 5. Metabolic acidosis secondary to acute kidney injury and IV fluids. 6. Anemia of chronic kidney disease. Iron deficiency noted. 7. Right kidney lesion. Will need to follow-up with urology. Plan: Increase dose of oral sodium bicarbonate. 2 A of sodium bicarbonate IV push now. Lasix 80 mg IV once today. Insert Arnold catheter. Increase midodrine to 10 mg 3 times daily. Continue to monitor renal function and urine output. Add IV iron. Check chest x-ray. If no improvement in renal function and urine output in the next 24-48 hours, will initiate renal replacement therapy. Patient agreeable
--- NOTE | 2020-12-08 13:26 | XR ---
EXAMINATION TYPE: XR chest 1V DATE OF EXAM: 12/08/2020 HISTORY: Shortness of breath. COMPARISON: 12/04/2020 TECHNIQUE: Single view of the chest is submitted. FINDINGS: Demonstrated are scattered senescent parenchymal change. Patchy density left lateral lung base has increased as well as small effusion. Patchy right infrahila r density persists as well. Correlate for underlying pneumonia. The heart is stable. Hilar and mediastinal structures are within normal limits. Degenerative changes are seen of the dorsal spine. IMPRESSION: 1. Patchy density left lateral lung base has increased as well as small effusion. Patchy right infra hilar density persists as well. Correlate for underlying pneumonia.
[2020-12-08] MEDS: SODIUM FERRIC GLUCONAT-SUCROSE 125 MG in SODIUM CHLORIDE 0.9% 100 ML IVPB SCH (14:50)
--- NOTE | 2020-12-08 16:14 | P.PN ---
Subjective Progress Note Date: 12/08/20 This is an 89-year-old gentleman admitted with acute non-STEMI, acute renal failure, hypertension and multiple other medical issues. Declined aggressive/invasive measures including cardiac catheterization and requests conservative management only. Renal function worsening, BUN 60, creatinine 2.52, maintained on IV fluid hydration. Heparin drip discontinued yesterday..Complains of increased shortness of breath this morning. Telemetry sinus rhythm. Echo reporting severe global hypokinesis of LV, severely impaired left ventricular systolic function, EF down to 20-25%, aortic valve trileaflet, severely thickened, mild aortic stenosis, moderate to severe mitral regurgitation , unable to rule out fail MV leaflet versus vegetation -discussed with cardiology stating not vegetation, no FLORENCIO required, mild pulmonary hypertension ;compaired to 1 year ago, EF had been 30-35%, mild aortic stenosis, aortic valve trileaflet, moderately thickened, mild mitral regurgitation. Tachycardic, metoprolol increased yesterday, maintained on Ranexa. Borderline hypotensive, Imdur and sergei inhibitor discontinued yesterday, systolic blood pressure currently in the low 90s. 12/07/2020 worsening renal function, BUN 69 ,creatinine 2.87 sinus rhythm to sinus tachycardia with heart rate up into the 1 teens as per telemetry.Maintaining O2 sats in the 90s on room air. Afebrile, normal WBC. Systolic blood pressures ranging from 90s to 1teens. SERGEI inhibitor on hold related to hypotension and renal function. Hemoglobin and platelets trending down, 8.5/144. Denies chest pain, palpitations or shortness of breath. 12/08/2020 Midodrin added yesterday, borderline hypotension with blood pressures ranging mid 80s to low 100s. oral intake poor ,renal function worsening, up to 3.25. Afebrile. Bicarb 14. Requiring 2 L nasal cannula today to maintaining O2 sats in the 90s. Chest x-ray ordered.TIBC 255, iron saturation 7.84, ferritin 361.4. Renal ultrasound reporting bilateral renal cysts, more solid-appearing lesion right kidney measuring 2.6 cm similar appearance to prior ultrasound, no hydronephrosis, no nephrolithiasis. Objective - Vital Signs Vital signs: Vital Signs Temp 97.4 F L 12/08/20 14:50 Pulse 70 12/08/20 15:19 Resp 16 12/08/20 15:19 BP 103/74 12/08/20 15:19 Pulse Ox 93 L 12/08/20 15:19 Intake & Output 12/07/20 12/08/20 12/08/20 18:59 06:59 18:59 Intake Total 720 308 Output Total 630 Balance 720 -630 308 Weight 83.8 kg Intake: IV 10 0.9 10 Oral 720 298 Output: Urine 520 Stool 110 Other: Voiding Method Bedside Commode # Voids 2 2 1 # Bowel Movements 1 1 1 - Exam PHYSICAL EXAMINATION: GENERAL: Sitting up in chair, no acute distress. HEENT: Pupils are round and equally reacting to light. EOMI. No scleral icterus. CARDIOVASCULAR: S1 and S2 present. Systolic murmur, no rubs, or gallops. PULMONARY: Bilateral breath sounds clear with bilateral bases diminished. No wheeze or crackles. ABDOMEN: Soft, nontender, nondistended, normoactive bowel sounds. No palpable organomegaly. EXTREMITIES: No cyanosis, clubbing, trace pedal edema. NEUROLOGICAL: Cranial nerves II through XII grossly intact, no focal deficits. Strength and sensation grossly intact SKIN: No rashes, warm and dry. - Labs CBC & Chem 7: 12/07/20 07:36 12/08/20 07:46 Labs: Abnormal Lab Results - Last 24 Hours (Table) 12/07/20 12/07/20 12/08/20 Range/Units 07:36 21:41 07:46 Chloride 109 H (98-107) mmol/L Carbon Dioxide 14 L (22-30) mmol/L BUN 87 H (9-20) mg/dL Creatinine 3.25 H (0.66-1.25) mg/dL Glucose 140 H (74-99) mg/dL Calcium 8.2 L (8.4-10.2) mg/dL Iron 20 L (65-175) ug/dL % Saturation 7.84 L (15.00-50.00) Ferritin 361.4 H (22.0-322.0) ng/mL Urine Protein Trace H (Negative) Assessment and Plan Assessment: Acute Non-ST elevation [place] Acute on chronic systolic CHF, EF 20-25% Moderate to severe mitral regurgitation Acute renal failure Anemia of chronic disease, iron deficient Hypertension History of melanoma status post removal History of small bowel obstruction status post bowel resection History of hemorrhoids Former smoker Right kidney lesion, outpatient follow-up with urology Plan: Continue on current medication regime ,monitoring and symptomatic treatment. Conservative management/ Maximizing medical therapy:Sodium bicarb, Lasix, Midodrin, Iron. Repeat chest x-ray. Close monitoring of renal function with repeat labs ordered for a.m. The impression and plan of care has been dictated as directed. : I performed a history and examination of this patient, discussed the same with the dictator. I agree with the dictator's note ,documented as a scribe. Any additional findings or plans will be noted..
--- NOTE | 2020-12-08 19:15 | XR ---
EXAMINATION TYPE: XR chest 2V DATE OF EXAM: 12/08/2020 COMPARISON: 12/08/2020 HISTORY: Hypoxemia TECHNIQUE: 2 views FINDINGS: There is blunting of the costophrenic angles. There is pulmonary vascular congestion. Thora cic aorta is atheromatous. There are chest leads. IMPRESSION: Pulmonary congestion with pleural effusions related to congestive heart failure. No fall e compared to exam 6 hours ago.
[2020-12-09] MEDS: MIDODRINE 5 MG TAB PO SCH ×3 (06:16→17:47)
--- NOTE | 2020-12-09 07:06 | XR ---
EXAMINATION TYPE: XR chest 1V DATE OF EXAM: 12/09/2020 COMPARISON: 12/08/2020. HISTORY: CHF. TECHNIQUE: Single frontal view of the chest is obtained. FINDINGS: There is bibasilar pleural effusion left greater than right with compressive atelectasis. No significant change compared to prior examination. There is mild cardiovascular congestion without sil pulmonary edema. Heart and mediastinum appear a ppears slightly prominent as seen before. No pneumothorax. IMPRESSION: Slight improvement compared to yesterday.
[2020-12-09] MEDS: SODIUM BICARBONATE TAB 650 MG TAB PO SCH ×3 (08:08→21:06)
[2020-12-09] MEDS: RANOLAZINE 500 MG TAB.ER.12H PO SCH ×2 (08:08→19:58)
[2020-12-09] MEDS: METOPROLOL TARTRATE 12.5 MG TAB PO SCH ×2 (08:08→19:58)
[2020-12-09] MEDS: ASPIRIN 81 MG PO SCH (08:08)
[2020-12-09] MEDS: PANTOPRAZOLE 40 MG TABLET PO SCH (08:08)
[2020-12-09] MEDS: ATORVASTATIN 40 MG TAB PO SCH (08:08)
[2020-12-09] MEDS: MULTIVITAMINS, THERA 1 EACH TAB PO SCH (08:08)
[2020-12-09] MEDS: TIMOLOL 0.5% OPHTH DROPS 5 ML BTL BOTH EYES SCH (08:09)
[2020-12-09 08:55] LABS: HCT 28.9 % (39.0-53.0); HGB 9.6 gm/dL (13.0-17.5); Hypochromasia Slight; MCH 33.7 pg (25.0-35.0); MCHC 33.1 g/dL (31.0-37.0); MCV 101.7 fL (80.0-100.0); Macrocytosis Slight; Mean Platelet Volume 8.8; Platelet Count 142 k/uL (150-450); RBC 2.85 m/uL (4.30-5.90); RDW 14.3 % (11.5-15.5); WBC 12.2 k/uL (3.8-10.6)
[2020-12-09 09:07] LABS: Calcium 8.1 mg/dL (8.4-10.2); Magnesium 1.9 mg/dL (1.6-2.3); Potassium 4.8 mmol/L (3.5-5.1)
[2020-12-09] MEDS: SODIUM FERRIC GLUCONAT-SUCROSE 125 MG in SODIUM CHLORIDE 0.9% 100 ML IVPB SCH (09:32)
[2020-12-09] MEDS ORDERED: SODIUM BICARB 8.4% 50 ML SYR (1 MEQ/ML) IV STA (10:57)
--- NOTE | 2020-12-09 10:59 | P.PN ---
Subjective Patient is seen in follow-up for acute kidney injury on chronic kidney disease. Renal function worse. Creatinine 3.81 today. Has a Arnold catheter. Urine output documented as 950 mL in the last 24 hours. Blood pressure controlled. Does complain of dyspnea. Currently on 2 L nasal cannula. Vital signs are stable. General: The patient appeared well nourished and normally developed. HEENT: Head exam is unremarkable. LUNGS: Breath sounds decreased. HEART: Rate and Rhythm are regular. ABDOMEN: Soft, no distention. EXTREMITITES: 1+ edema. Objective - Vital Signs Vital signs: Vital Signs Temp 97.2 F L 12/09/20 07:59 Pulse 101 H 12/09/20 08:00 Resp 18 12/09/20 08:00 BP 132/64 12/09/20 07:59 Pulse Ox 87 L 12/09/20 08:14 Intake & Output 12/08/20 12/09/20 12/09/20 18:59 06:59 18:59 Intake Total 308 10 240 Output Total 950 Balance 308 -940 240 Weight 83.4 kg Intake: IV 10 10 0.9 10 10 Oral 298 240 Output: Urine 950 Other: Voiding Method Bedside Commode Indwelling Catheter Indwelling Catheter # Voids 1 # Bowel Movements 1 - Labs CBC & Chem 7: 12/09/20 07:42 12/09/20 07:42 Labs: Abnormal Lab Results - Last 24 Hours (Table) 12/09/20 12/09/20 Range/Units 07:42 07:42 WBC 12.2 H (3.8-10.6) k/uL RBC 2.85 L (4.30-5.90) m/uL Hgb 9.6 L (13.0-17.5) gm/dL Hct 28.9 L (39.0-53.0) % MCV 101.7 H (80.0-100.0) fL Plt Count 142 L (150-450) k/uL Carbon Dioxide 16 L (22-30) mmol/L BUN 97 H (9-20) mg/dL Creatinine 3.81 H (0.66-1.25) mg/dL Glucose 136 H (74-99) mg/dL Calcium 8.1 L (8.4-10.2) mg/dL Assessment and Plan Plan: Assessment: 1. Acute kidney injury secondary to ATN secondary to hypotension and cardiorenal syndrome. Creatinine 3.81 today. No hydronephrosis noted on kidney ultrasound. Left kidney smaller in size. UA fairly benign. 2. Chronic kidney disease stage IV with baseline creatinine near 2 secondary to nephrosclerosis. 3. Acute on chronic systolic CHF with ejection fraction of 20-25% with moderate to severe mitral regurgitation. 4. Non-ST elevated myocardial infarction. Cardiology following. Patient wishes for conservative management only. 5. Metabolic acidosis secondary to acute kidney injury and IV fluids. Maintained on oral bicarbonate. 6. Anemia of chronic kidney disease. Iron deficiency noted. 7. Right kidney lesion. Will need to follow-up with urology. 8. Volume overload. Plan: Start Lasix drip at 5 mL an hour. 2 A of sodium bicarbonate IV push now. Maintain midodrine. Continue to monitor renal function and urine output. Maintain IV iron. Repeat chest x-ray tomorrow. Continue to assess daily for need for renal replacement therapy. Patient is agreeable to start dialysis if needed.
[2020-12-09] MEDS: FUROSEMIDE 100 MG in SODIUM CHLORIDE 0.9% 90 ML IV SCH (11:39)
--- NOTE | 2020-12-09 15:26 | P.PN ---
Subjective Progress Note Date: 12/09/20 This is an 89-year-old gentleman admitted with acute non-STEMI, acute renal failure, hypertension and multiple other medical issues. Declined aggressive/invasive measures including cardiac catheterization and requests conservative management only. Renal function worsening, BUN 60, creatinine 2.52, maintained on IV fluid hydration. Heparin drip discontinued yesterday..Complains of increased shortness of breath this morning. Telemetry sinus rhythm. Echo reporting severe global hypokinesis of LV, severely impaired left ventricular systolic function, EF down to 20-25%, aortic valve trileaflet, severely thickened, mild aortic stenosis, moderate to severe mitral regurgitation , unable to rule out fail MV leaflet versus vegetation -discussed with cardiology stating not vegetation, no FLORENCIO required, mild pulmonary hypertension ;compaired to 1 year ago, EF had been 30-35%, mild aortic stenosis, aortic valve trileaflet, moderately thickened, mild mitral regurgitation. Tachycardic, metoprolol increased yesterday, maintained on Ranexa. Borderline hypotensive, Imdur and sergei inhibitor discontinued yesterday, systolic blood pressure currently in the low 90s. 12/07/2020 worsening renal function, BUN 69 ,creatinine 2.87 sinus rhythm to sinus tachycardia with heart rate up into the 1 teens as per telemetry.Maintaining O2 sats in the 90s on room air. Afebrile, normal WBC. Systolic blood pressures ranging from 90s to 1teens. SERGEI inhibitor on hold related to hypotension and renal function. Hemoglobin and platelets trending down, 8.5/144. Denies chest pain, palpitations or shortness of breath. 12/08/2020 Midodrin added yesterday, borderline hypotension with blood pressures ranging mid 80s to low 100s. oral intake poor ,renal function worsening, up to 3.25. Afebrile. Bicarb 14. Requiring 2 L nasal cannula today to maintaining O2 sats in the 90s. Chest x-ray ordered.TIBC 255, iron saturation 7.84, ferritin 361.4. Renal ultrasound reporting bilateral renal cysts, more solid-appearing lesion right kidney measuring 2.6 cm similar appearance to prior ultrasound, no hydronephrosis, no nephrolithiasis. 12/09/2020 renal function worsening, creatinine 3.81. Afebrile, normal WBC. R eports shortness of breath .Maintaining O2 sats of high 80s to mid 90s on 2 L nasal cannula. Chest x-ray reporting slight improvement. Maintained on oral bicarbonate, Bicarb 16. Midodrin increased yesterday, blood pressure better controlled. Denies chest pain, palpitations. Denies lightheadedness, dizziness or focal deficits. Objective - Vital Signs Vital signs: Vital Signs Temp 97.2 F L 12/09/20 07:59 Pulse 63 12/09/20 14:00 Resp 18 12/09/20 14:00 BP 91/56 12/09/20 12:00 Pulse Ox 95 12/09/20 12:00 Intake & Output 12/08/20 12/09/20 12/09/20 18:59 06:59 18:59 Intake Total 308 10 720 Output Total 950 150 Balance 308 -940 570 Weight 83.4 kg Intake: IV 10 10 0.9 10 10 Oral 298 720 Output: Urine 950 150 Other: Voiding Method Bedside Commode Indwelling Catheter Indwelling Catheter # Voids 1 # Bowel Movements 1 - Exam PHYSICAL EXAMINATION: GENERAL: Sitting up in chair, no acute distress. HEENT: Pupils are round and equally reacting to light. EOMI. No scleral icterus. CARDIOVASCULAR: S1 and S2 present. Systolic murmur, no rubs, or gallops. PULMONARY: Bilateral breath sounds clear with bilateral bases diminished. No wheeze or crackles. ABDOMEN: Soft, nontender, nondistended, normoactive bowel sounds. No palpable organomegaly. EXTREMITIES: No cyanosis, clubbing, positive edema. NEUROLOGICAL: Cranial nerves II through XII grossly intact, no focal deficits. Strength and sensation grossly intact SKIN: No rashes, warm and dry. - Labs CBC & Chem 7: 12/09/20 07:42 12/09/20 07:42 Labs: Abnormal Lab Results - Last 24 Hours (Table) 12/09/20 12/09/20 Range/Units 07:42 07:42 WBC 12.2 H (3.8-10.6) k/uL RBC 2.85 L (4.30-5.90) m/uL Hgb 9.6 L (13.0-17.5) gm/dL Hct 28.9 L (39.0-53.0) % MCV 101.7 H (80.0-100.0) fL Plt Count 142 L (150-450) k/uL Carbon Dioxide 16 L (22-30) mmol/L BUN 97 H (9-20) mg/dL Creatinine 3.81 H (0.66-1.25) mg/dL Glucose 136 H (74-99) mg/dL Calcium 8.1 L (8.4-10.2) mg/dL Assessment and Plan Assessment: Acute Non-ST elevation HI, conservative management, maximizing medical therapy. Acute on chronic systolic CHF, EF 20-25% with flow volume overload Moderate to severe mitral regurgitation Acute renal failure secondary to ATN, related to cardiorenal syndrome Chronic kidney disease, stage IV, secondary to nephrosclerosis, baseline creatinine 2. Anemia of chronic disease, iron deficient Hypertension History of melanoma status post removal History of small bowel obstruction status post bowel resection History of hemorrhoids Former smoker Right kidney lesion, outpatient follow-up with urology Plan: Continue on current medication regime ,monitoring and symptomatic treatment. Sodium bicarb, Lasix, Midodrin, Iron. Nephrology discussing increasing Lasix, possible drip. Possible renal replacement therapy. Close monitoring of renal function with repeat labs ordered for a.m. The impression and plan of care has been dictated as directed. .: I performed a history and examination of this patient, discussed the same with the dictator. I agree with the dictator's note ,documented as a scribe. Any additional findings or plans will be noted..
[2020-12-09 15:48] VITALS: BMI 27.1
[2020-12-09] MEDS ORDERED: MIDODRINE 5 MG TAB PO STA (23:52)
[2020-12-10] MEDS: FUROSEMIDE 100 MG in SODIUM CHLORIDE 0.9% 90 ML IV SCH (00:09)
[2020-12-10] MEDS: MIDODRINE 5 MG TAB PO SCH ×3 (06:21→18:05)
--- NOTE | 2020-12-10 07:08 | XR ---
EXAMINATION TYPE: XR chest 1V DATE OF EXAM: 12/10/2020 HISTORY: Shortness of breath. COMPARISON: 12/09/2020 TECHNIQUE: Single view of the chest is submitted. FINDINGS: Demonstrated are scattered senescent parenchymal change. Mild Patchy basilar infiltrates and small effusions persist. The heart is stable. Hilar and mediastinal structures are within normal limits. Degenerative changes are seen of the dorsal spine. IMPRESSION: 1. Mild Patchy basilar infiltrates and small effusions persist.
[2020-12-10 07:59] LABS: Calcium 7.5 mg/dL (8.4-10.2); Magnesium 2.1 mg/dL (1.6-2.3)
[2020-12-10] MEDS ORDERED: IPRATROPIUM-ALBUTEROL 3 ML NEB INHALATION PRN (09:40)
--- NOTE | 2020-12-10 09:55 | P.PN ---
Subjective Progress Note Date: 12/10/20 This is an 89-year-old gentleman admitted with acute non-STEMI, acute renal failure, hypertension and multiple other medical issues. Declined aggressive/invasive measures including cardiac catheterization and requests conservative management only. Renal function worsening, BUN 60, creatinine 2.52, maintained on IV fluid hydration. Heparin drip discontinued yesterday..Complains of increased shortness of breath this morning. Telemetry sinus rhythm. Echo reporting severe global hypokinesis of LV, severely impaired left ventricular systolic function, EF down to 20-25%, aortic valve trileaflet, severely thickened, mild aortic stenosis, moderate to severe mitral regurgitation , unable to rule out fail MV leaflet versus vegetation -discussed with cardiology stating not vegetation, no FLORENCIO required, mild pulmonary hypertension ;compaired to 1 year ago, EF had been 30-35%, mild aortic stenosis, aortic valve trileaflet, moderately thickened, mild mitral regurgitation. Tachycardic, metoprolol increased yesterday, maintained on Ranexa. Borderline hypotensive, Imdur and sergei inhibitor discontinued yesterday, systolic blood pressure currently in the low 90s. 12/07/2020 worsening renal function, BUN 69 ,creatinine 2.87 sinus rhythm to sinus tachycardia with heart rate up into the 1 teens as per telemetry.Maintaining O2 sats in the 90s on room air. Afebrile, normal WBC. Systolic blood pressures ranging from 90s to 1teens. SERGEI inhibitor on hold related to hypotension and renal function. Hemoglobin and platelets trending down, 8.5/144. Denies chest pain, palpitations or shortness of breath. 12/08/2020 Midodrin added yesterday, borderline hypotension with blood pressures ranging mid 80s to low 100s. oral intake poor ,renal function worsening, up to 3.25. Afebrile. Bicarb 14. Requiring 2 L nasal cannula today to maintaining O2 sats in the 90s. Chest x-ray ordered.TIBC 255, iron saturation 7.84, ferritin 361.4. Renal ultrasound reporting bilateral renal cysts, more solid-appearing lesion right kidney measuring 2.6 cm similar appearance to prior ultrasound, no hydronephrosis, no nephrolithiasis. 12/09/2020 renal function worsening, creatinine 3.81. Afebrile, normal WBC. R eports shortness of breath .Maintaining O2 sats of high 80s to mid 90s on 2 L nasal cannula. Chest x-ray reporting slight improvement. Maintained on oral bicarbonate, Bicarb 16. Midodrin increased yesterday, blood pressure better controlled. Denies chest pain, palpitations. Denies lightheadedness, dizziness or focal deficits. 12/10/2020 Lasix drip initiated yesterday .BUN up to 113, creatinine up to 4.49. Oxygen requirements increased to 4 L nasal cannula to maintain O2 sats in the 90s. Chest x-ray reporting patchy bibasilar infiltrates, persistent small effusions. Hypotensive, systolic blood pressures in the high 80s to low 90s. Objective - Vital Signs Vital signs: Vital Signs Temp 97.4 F L 12/10/20 04:00 Pulse 77 12/10/20 04:00 Resp 18 12/10/20 04:00 BP 89/61 12/10/20 06:24 Pulse Ox 95 12/10/20 04:00 Intake & Output 12/09/20 12/10/20 12/10/20 18:59 06:59 18:59 Intake Total 720 115.083 Output Total 150 400 Balance 570 -284.917 Weight 83.4 kg 84 kg Intake: IV 10 0.9 10 Intake, IV Titration 105.083 Amount Furosemide 100 mg In 105.083 Sodium Chloride 0.9% 90 ml @ 5 MG/HR 5 mls/hr IV .Q20H [facility] Rx#:[id number] Oral 720 Output: Urine 150 400 Other: Voiding Method Indwelling Catheter Indwelling Catheter # Bowel Movements 2 - Exam PHYSICAL EXAMINATION: GENERAL: Sitting up in bed, no acute distress. Tired appearing. HEENT: Pupils are round and equally reacting to light. EOMI. No scleral icterus. CARDIOVASCULAR: S1 and S2 present. Systolic murmur, no rubs, or gallops. PULMONARY: Bilateral breath sounds clear with bilateral bases diminished. fine basilar crackles. ABDOMEN: Soft, nontender, nondistended, normoactive bowel sounds. No palpable organomegaly. EXTREMITIES: No cyanosis, clubbing, positive edema. NEUROLOGICAL: Cranial nerves II through XII grossly intact, no focal deficits. Strength and sensation grossly intact SKIN: No rashes, warm and dry. - Labs CBC & Chem 7: 12/09/20 07:42 12/10/20 07:33 Labs: Abnormal Lab Results - Last 24 Hours (Table) 12/10/20 Range/Units 07:33 Carbon Dioxide 16 L (22-30) mmol/L BUN 113 H* (9-20) mg/dL Creatinine 4.49 H (0.66-1.25) mg/dL Glucose 152 H (74-99) mg/dL Calcium 7.5 L (8.4-10.2) mg/dL Assessment and Plan Assessment: Acute Non-ST elevation HI, conservative management, maximizing medical therapy. Acute on chronic systolic CHF, EF 20-25% with flow volume overload Possible bibasilar pneumonia Acute hypoxic respiratory failure secondary to the above and renal failure, on Lasix drip Hypotension, on midodrin Moderate to severe mitral regurgitation Acute renal failure secondary to ATN, related to cardiorenal syndrome Chronic kidney disease, stage IV, secondary to nephrosclerosis, baseline creatinine 2. Anemia of chronic disease, iron deficient Hypertension History of melanoma status post removal History of small bowel obstruction status post bowel resection History of hemorrhoids Former smoker Right kidney lesion, outpatient follow-up with urology Plan: Continue on current medication regime ,monitoring and symptomatic treatment. Diuretics as per nephrology-worsening hypoxia and renal function. Pulmonary consulted .Empiric antibiotics initiated for potential pneumonia. Possible renal replacement therapy. Close monitoring of renal function with repeat labs ordered for a.m. The impression and plan of care has been dictated as directed. : I performed a history and examination of this patient, discussed the same with the dictator. I agree with the dictator's note ,documented as a scribe. Any additional findings or plans will be noted..
[2020-12-10] MEDS: ATORVASTATIN 40 MG TAB PO SCH (10:21)
[2020-12-10] MEDS: METOPROLOL TARTRATE 12.5 MG TAB PO SCH ×2 (10:21→19:48)
[2020-12-10] MEDS: ASPIRIN 81 MG PO SCH (10:21)
[2020-12-10] MEDS: PANTOPRAZOLE 40 MG TABLET PO SCH (10:22)
[2020-12-10] MEDS: MULTIVITAMINS, THERA 1 EACH TAB PO SCH (10:22)
[2020-12-10] MEDS: SODIUM BICARBONATE TAB 650 MG TAB PO SCH ×3 (10:22→19:48)
[2020-12-10] MEDS: SODIUM FERRIC GLUCONAT-SUCROSE 125 MG in SODIUM CHLORIDE 0.9% 100 ML IVPB SCH (10:22)
[2020-12-10] MEDS: RANOLAZINE 500 MG TAB.ER.12H PO SCH ×2 (10:22→19:48)
[2020-12-10] MEDS: TIMOLOL 0.5% OPHTH DROPS 5 ML BTL BOTH EYES SCH (10:34)
--- NOTE | 2020-12-10 11:21 | P.PN ---
Subjective Patient is seen in follow-up for acute kidney injury on chronic kidney disease. Renal function continues to worsen. Urine output didn't improve with Lasix drip. Patient's blood pressure dropped and Lasix drip to be stopped in the middle of the night. Patient remains short of breath. Vital signs are stable. Blood pressure on the lower side. General: On nasal cannula. HEENT: Head exam is unremarkable. LUNGS: Breath sounds decreased. HEART: Rate and Rhythm are regular. ABDOMEN: Soft, no distention. EXTREMITITES: 1+ edema. Objective - Vital Signs Vital signs: Vital Signs Temp 97.4 F L 12/10/20 04:00 Pulse 64 12/10/20 08:00 Resp 20 12/10/20 08:00 BP 92/59 12/10/20 08:00 Pulse Ox 91 L 12/10/20 08:00 Intake & Output 12/09/20 12/10/20 12/10/20 18:59 06:59 18:59 Intake Total 720 115.083 Output Total 150 400 Balance 570 -284.917 Weight 83.4 kg 84 kg Intake: IV 10 0.9 10 Intake, IV Titration 105.083 Amount Furosemide 100 mg In 105.083 Sodium Chloride 0.9% 90 ml @ 5 MG/HR 5 mls/hr IV .Q20H [facility] Rx#:[id number] Oral 720 Output: Urine 150 400 Other: Voiding Method Indwelling Catheter Indwelling Catheter Indwelling Catheter # Bowel Movements 2 - Labs CBC & Chem 7: 12/09/20 07:42 12/10/20 07:33 Labs: Abnormal Lab Results - Last 24 Hours (Table) 12/10/20 Range/Units 07:33 Carbon Dioxide 16 L (22-30) mmol/L BUN 113 H* (9-20) mg/dL Creatinine 4.49 H (0.66-1.25) mg/dL Glucose 152 H (74-99) mg/dL Calcium 7.5 L (8.4-10.2) mg/dL Assessment and Plan Plan: Assessment: 1. Acute kidney injury secondary to ATN secondary to hypotension and cardiorenal syndrome. Creatinine 4.49 today. No hydronephrosis noted on kidney ultrasound. Left kidney smaller in size. UA fairly benign. 2. Chronic kidney disease stage IV with baseline creatinine near 2 secondary to nephrosclerosis. 3. Acute on chronic systolic CHF with ejection fraction of 20-25% with moderate to severe mitral regurgitation. 4. Non-ST elevated myocardial infarction. Cardiology following. Patient wishes for conservative management only. 5. Metabolic acidosis secondary to acute kidney injury and IV fluids. Jen pulidoined on oral bicarbonate. 6. Anemia of chronic kidney disease. Iron deficiency noted. 7. Right kidney lesion. Will need to follow-up with urology. 8. Volume overload. Plan: Patient could not tolerate Lasix drip. Urine output remains low. I discussed with the patient and also spoke to both of his sons Monroe and Johnie over the phone regarding the patient's condition. It was discussed that due to worsening renal function, low urine output in addition to fluid overload, will need to initiate renal replacement therapy. However due to patient's underlying cardiac status and low blood pressure, he is not an ideal candidate and won't be able to tolerate dialysis. Patient has decided to proceed with comfort care.
[2020-12-10] MEDS: PIPERACILLIN-TAZOBACTAM 3.375 GM in SODIUM CHLORIDE 0.9% 100 ML IVPB SCH ×2 (12:41→19:49)
[2020-12-10] MEDS: IPRATROPIUM-ALBUTEROL 3 ML NEB INHALATION SCH ×3 (12:42→19:26)
[2020-12-10] MEDS ORDERED: LORazepam 0.5 MG TAB PO PRN (14:59)
--- NOTE | 2020-12-10 15:09 | P.CNPUL ---
History of Present Illness Consult date: 12/10/20 Requesting physician: Saroj Bradshaw Reason for consult: dyspnea Chief complaint: Chest pain History of present illness: This is an 89-year-old white male with history of multiple medical problems in cluding hypertension, atrial fibrillation, history of melanoma of the right side of the neck status post resection, history of bowel obstruction requiring resection, patient was brought into the ER initially on 12/04/2020, and his presentation was mostly a presentation of intermittent episodes of angina. Patient was admitted, however according to the notes the patient declined any surgical intervention including cardiac catheterization. Requested mostly conservative management. Patient was placed on multiple cardiac meds and on diuretics, renal functioning was getting worse. He was also placed on heparin. His echocardiogram showed severe global hypokinesis with severely impaired left ventricle, ejection fraction about 20-25%. He also had mild aortic stenosis, moderate to severe mitral regurgitation, and flail mitral valve leaflet. Cardiology did not recommend FLORENCIO. His ejection fraction a year ago was 30%. Patient was maintained on Ranexa and his other medications to control blood pressure. Since admission, patient has been demonstrating worsening renal function and his chest x-ray is consistent with patchy interstitial edema and pleural effusions small consistent with CHF, however possibility of underlying pneumonia is not entirely ruled out based on the chest x-ray. Clinically however the patient had no symptoms to suggest pneumonia no fever no chills, no cough, no sore throat, and he did not have any significant leukocytosis. Based on his worsening renal profile, patient seems to be developing a cardiorenal acute kidney injury. Lasix remains at 40 mg IV push every 12 hours, being managed by nephrology Review of Systems CONSTITUTIONAL: No fever, no chills, no weight loss. HEENT: Negative. CARDIOVASCULAR: As per HPI PULMONARY: As noted in HPI. Again no cough no fever no chills no symptoms to suggest pneumonia. GASTROINTESTINAL: No abdominal pain, vomiting , diarrhea or constipation NEUROLOGICAL: No weakness of the extremities, no syncopal episodes HEMATOLOGICAL: Denies any bleeding or petechiae. GENITOURINARY: Denies any burning micturition, frequency, or urgency. MUSCULOSKELETAL/RHEUMATOLOGICAL: Denies any joint pain, swelling, or any muscle pain. ENDOCRINE: Denies any polyuria or polydipsia. Past Medical History Past Medical History: Hypertension Additional Past Medical History / Comment(s): Melanoma removed from R side of trunk, past fracture L wrist, hemorrhoids SBO History of Any Multi-Drug Resistant Organisms: None Reported Past Surgical History: Hernia Repair Additional Past Surgical History / Comment(s): umbilical hernia repair, colonoscopies x 2-normal, melanoma removed R side of trunk. bowel resection Past Anesthesia/Blood Transfusion Reactions: No Reported Reaction Past Psychological History: No Psychological Hx Reported Additional Psychological History / Comment(s): Pt resides alone. He uses no assistive device. He drives. Smoking Status: Former smoker Past Alcohol Use History: Occasional Additional Past Alcohol Use History / Comment(s): Pt states he smoked cigarettes and pipe in the past. He started smoking at age 19yrs and quit in 1966. Past Drug Use History: None Reported - Past Family History Father Additional Family Medical History / Comment(s): Father had heart problems. He at the age of 57yrs. Mother Family Medical History: Cancer Additional Family Medical History / Comment(s): Mother of bowel cancer at the age of 89yrs old. Medications and Allergies Home Medications Medication Instructions Recorded Confirmed Type Aspirin 81 mg PO DAILY 03/20/16 12/04/20 History Pantoprazole Sodium [Protonix] 40 mg PO DAILY #30 tablet.dr 01/01/20 12/04/20 Rx Multivitamins, Thera [Multivitamin 1 tab PO DAILY 12/04/20 12/04/20 History (formulary)] Timolol [Betimol 0.5% Ophth Soln] 1 drop BOTH EYES DAILY 12/04/20 12/04/20 History Atorvastatin [Lipitor] 40 mg PO DAILY@0900 #30 tab 12/07/20 Rx Metoprolol Tartrate [Lopressor] 12.5 mg PO BID #60 tab 12/07/20 Rx Nitroglycerin Sl Tabs [Nitrostat] 0.4 mg SUBLINGUAL Q5M PRN #100 tab 12/07/20 Rx Ranolazine [Ranexa] 500 mg PO Q12HR #60 tab.er.12h 12/07/20 Rx Allergies Allergy/AdvReac Type Severity Reaction Status Date / Time bee pollen Allergy Anaphylaxis Verified 12/04/20 14:46 honey Allergy Rash/Hives Verified 12/04/20 14:46 venom-honey bee Allergy Anaphylaxis Verified 12/04/20 14:46 [bee venom (honey bee)] venom-wasp [wasp venom] Allergy Anaphylaxis Verified 12/04/20 14:46 Physical Exam Vitals: Vital Signs Temp Pulse Pulse Resp BP Pulse Ox 12/10/20 13:24 88 20 12/10/20 12:52 66 12/10/20 12:45 62 12/10/20 12:00 98.2 F 88 20 85/48 96 12/10/20 08:00 64 20 92/59 91 L 12/10/20 06:24 89/61 12/10/20 04:00 97.4 F L 77 18 92/52 95 12/10/20 03:39 84/60 12/10/20 03:09 84/56 12/10/20 02:39 82/54 12/10/20 02:09 80/56 12/10/20 02:00 98 18 12/10/20 01:39 81/52 12/10/20 01:15 80/50 12/10/20 00:40 80/54 12/10/20 00:10 82/50 12/09/20 23:55 82/51 12/09/20 23:43 98.0 F 98 18 82/52 95 12/09/20 23:30 80/54 12/09/20 23:15 82/52 12/09/20 23:00 81/52 12/09/20 22:50 78/56 12/09/20 22:45 79/52 12/09/20 20:00 97.8 F 104 H 18 96/59 99 12/09/20 15:56 90 16 94/60 100 Intake and Output 12/09/20 12/10/20 12/10/20 22:59 06:59 14:59 Intake Total 115.083 580 Output Total 400 Balance -284.917 580 Intake: IV 10 0.9 10 Intake, IV Titration 105.083 100 Amount Furosemide 100 mg In 105.083 Sodium Chloride 0.9% 90 ml @ 5 MG/HR 5 mls/hr IV .Q20H [facility] Rx#:[id number] Sodium Ferric Gluconat- 100 Sucrose 125 mg In Sodium Chloride 0.9% 100 ml @ 100 mls/hr IVPB DAILY [facility] Rx#:[id number] Oral 480 Output: Urine 400 Other: Voiding Method Indwelling Catheter Indwelling Catheter Indwelling Catheter # Bowel Movements 2 Weight 83.4 kg 84 kg GENERAL: Revealed a 89-year-old white male in no distress. On 3 L nasal cannula with O2 saturation 96%. HEENT: Pupils are round and equally reacting to light. EOMI. No scleral icterus. Mild pallor. Normocephalic, atraumatic. No pharyngeal erythema. No thyromegaly. CARDIOVASCULAR: Normal S1 and S2, 2/6 systolic murmur thought the precordium. PULMONARY: Very minimal crackles at the bases, no rhonchi and no wheezes. ABDOMEN: Soft, nontender, nondistended, normoactive bowel sounds. No palpable organomegaly. MUSCULOSKELETAL: No joint swelling or deformity. EXTREMITIES: No clubbing, trace of edema, no cyanosis. NEUROLOGICAL: Alert and oriented 3, no gross focal deficit. Psychiatric: Normal mood affect and normal mental status examination. SKIN: No rashes. Results - Laboratory Findings CBC and BMP: 12/09/20 07:42 12/10/20 07:33 PT/INR, D-dimer PT 10.0 sec (9.0-12.0) 12/04/20 13:24 INR 0.9 (<1.2) 12/04/20 13:24 Abnormal lab findings: Abnormal Labs 12/04/20 12/04/20 12/04/20 13:24 13:24 13:24 WBC RBC 3.08 L Hgb 9.8 L Hct 30.8 L MCV 100.1 H MCHC Plt Count Neutrophils # Lymphocytes # APTT 20.5 L Potassium Chloride 108 H Carbon Dioxide BUN 55 H Creatinine 2.39 H Glucose 193 H Calcium Iron % Saturation Ferritin Troponin I HDL Cholesterol Urine Protein 12/04/20 12/04/20 12/04/20 13:24 16:38 19:19 WBC RBC Hgb Hct MCV MCHC Plt Count Neutrophils # Lymphocytes # APTT Potassium Chloride Carbon Dioxide BUN Creatinine Glucose Calcium Iron % Saturation Ferritin Troponin I 0.179 H* 2.310 H* 8.670 H* HDL Cholesterol Urine Protein 12/04/20 12/05/20 12/05/20 19:19 07:09 07:09 WBC RBC Hgb Hct MCV MCHC Plt Count Neutrophils # Lymphocytes # APTT 53.2 H 50.2 H Potassium 5.5 H Chloride 110 H Carbon Dioxide 18 L BUN 53 H Creatinine 2.25 H Glucose 150 H Calcium Iron % Saturation Ferritin Troponin I HDL Cholesterol 36 L Urine Protein 12/05/20 12/05/20 12/06/20 07:09 07:09 07:07 WBC 13.6 H RBC 3.24 L Hgb 10.4 L Hct 32.6 L MCV 100.5 H MCHC Plt Count Neutrophils # 11.9 H Lymphocytes # 0.8 L APTT 54.1 H Potassium Chloride Carbon Dioxide BUN Creatinine Glucose Calcium Iron % Saturation Ferritin Troponin I 22.300 H* HDL Cholesterol Urine Protein 12/06/20 12/06/20 12/07/20 07:07 07:07 07:36 WBC 13.7 H RBC 3.04 L 2.59 L Hgb 9.7 L 8.5 L Hct 31.4 L 26.3 L MCV 103.5 H 101.6 H MCHC 30.9 L Plt Count 144 L Neutrophils # 11.9 H 8.3 H Lymphocytes # 0.7 L 0.6 L APTT Potassium Chloride 110 H Carbon Dioxide 15 L BUN 60 H Creatinine 2.52 H Glucose 138 H Calcium Iron % Saturation Ferritin Troponin I HDL Cholesterol Urine Protein 12/07/20 12/07/20 12/07/20 07:36 07:36 21:41 WBC RBC Hgb Hct MCV MCHC Plt Count Neutrophils # Lymphocytes # APTT Potassium Chloride 110 H Carbon Dioxide 17 L BUN 69 H Creatinine 2.87 H Glucose 129 H Calcium 8.1 L Iron 20 L % Saturation 7.84 L Ferritin 361.4 H Troponin I HDL Cholesterol Urine Protein Trace H 12/08/20 12/09/20 12/09/20 07:46 07:42 07:42 WBC 12.2 H RBC 2.85 L Hgb 9.6 L Hct 28.9 L MCV 101.7 H MCHC Plt Count 142 L Neutrophils # Lymphocytes # APTT Potassium Chloride 109 H Carbon Dioxide 14 L 16 L BUN 87 H 97 H Creatinine 3.25 H 3.81 H Glucose 140 H 136 H Calcium 8.2 L 8.1 L Iron % Saturation Ferritin Troponin I HDL Cholesterol Urine Protein 12/10/20 07:33 WBC RBC Hgb Hct MCV MCHC Plt Count Neutrophils # Lymphocytes # APTT Potassium Chloride Carbon Dioxide 16 L BUN 113 H* Creatinine 4.49 H Glucose 152 H Calcium 7.5 L Iron % Saturation Ferritin Troponin I HDL Cholesterol Urine Protein - Diagnostic Findings Chest x-ray: image reviewed (As noted in HPI) Assessment and Plan Assessment: Impression: Acute non-ST elevation myocardial infarction Acute on chronic systolic congestive heart failure Acute kidney injury possible cardiorenal syndrome Severe LV dysfunction based on recent echocardiogram History of melanoma, status post resection Benign essential hypertension Right kidney lesion, needs outpatient follow-up. Former smoker. Recommendation: Patient did not tolerate Lasix drip, urine output remains low. Continue present supportive care measures as they are different consultants on the case. I strongly doubt pneumonia on this patient based on his clinical history and based on his labs, no evidence of leukocytosis. However will recommend the Procrit stone in level in the meantime continue present supportive care measures We'll continue to follow. Considering his overall condition, patient has very poor prognosis Time with Patient: Greater than 30
[2020-12-10] MEDS ORDERED: FUROSEMIDE 10 MG/ML 4 ML VIAL IV SCH (21:00)
[2020-12-11 04:07] VITALS: RESP 18
[2020-12-11] MEDS: MIDODRINE 5 MG TAB PO SCH (06:00)
[2020-12-11 08:14] LABS: Potassium 4.8 mmol/L (3.5-5.1)
[2020-12-11] MEDS: IPRATROPIUM-ALBUTEROL 3 ML NEB INHALATION SCH ×2 (08:36→12:03)
[2020-12-11 08:51] LABS: HCT 27.9 % (39.0-53.0); HGB 9.5 gm/dL (13.0-17.5); MCH 33.6 pg (25.0-35.0); MCHC 33.9 g/dL (31.0-37.0); Macrocytosis Slight; Mean Platelet Volume 9.9; RBC 2.82 m/uL (4.30-5.90)
[2020-12-11 09:32] LABS: Neutrophils % (M) 93 %; Nucleated Red Blood Cells 12 /100 WBC (0-0); Total Cells Counted 200
[2020-12-11 09:33] LABS: Lymphocytes # (M) 0.41 k/uL (1.0-4.8); Monocytes # (M) 0.55 k/uL (0-1.0); Neutrophils # (M) 12.83 k/uL (1.3-7.7); WBC 13.8 k/uL (3.8-10.6)
[2020-12-11 09:34] LABS: Platelet Count 87 k/uL (150-450); Polychromasia Present
[2020-12-11 10:55] VITALS: BP 103/63; PULSE 76; TEMP 97.5
--- NOTE | 2020-12-11 11:40 | P.PN ---
Subjective Progress Note Date: 12/11/20 This is an 89-year-old white male with history of multiple medical problems including hypertension, atrial fibrillation, history of melanoma of the right side of the neck status post resection, history of bowel obstruction requiring resection, patient was brought into the ER initially on 12/04/2020, and his presentation was mostly a presentation of intermittent episodes of angina. Patient was admitted, however according to the notes the patient declined any surgical intervention including cardiac catheterization. Requested mostly conservative management. Patient was placed on multiple cardiac meds and on diuretics, renal functioning was getting worse. He was also placed on heparin. His echocardiogram showed severe global hypokinesis with severely impaired left ventricle, ejection fraction about 20-25%. He also had mild aortic stenosis, moderate to severe mitral regurgitation, and flail mitral valve leaflet. Cardiology did not recommend FLORENCIO. His ejection fraction a year ago was 30%. Cal luong was maintained on Ranexa and his other medications to control blood pressure. Since admission, patient has been demonstrating worsening renal function and his chest x-ray is consistent with patchy interstitial edema and pleural effusions small consistent with CHF, however possibility of underlying pneumonia is not entirely ruled out based on the chest x-ray. Clinically however the patient had no symptoms to suggest pneumonia no fever no chills, no cough, no sore throat, and he did not have any significant leukocytosis. Based on his worsening renal profile, patient seems to be developing a cardiorenal acute kidney injury. Lasix remains at 40 mg IV push every 12 hours, being managed by nephrology The patient is seen today 12/11/2020 on the selective care unit. He is currently sitting up in bed. Quite frail and weak. Maintaining O2 saturations in the 90s on 3 L nasal cannula. He is afebrile. He is having runs of ventricular tachycardia. White count 13.8. Hemoglobin 9.5. Sodium 137. Potassium 4.8. BUN 127. Creatinine 5.61. He remains on Lasix 40 mg IV every 12 hours, bronchodilators, antibiotics in the form of Zosyn. Objective - Vital Signs Vital signs: Vital Signs Temp 97.5 F L 12/11/20 08:00 Pulse 62 12/11/20 08:48 Resp 18 12/11/20 08:00 BP 103/63 12/11/20 08:00 Pulse Ox 92 L 12/11/20 08:00 Intake & Output 12/10/20 12/11/20 12/11/20 18:59 06:59 18:59 Intake Total 580 115 Output Total 150 200 Balance 430 -200 115 Weight 85.3 kg Intake: Intake, IV Titration 100 0 Amount Piperacillin-Tazobactam 3 0 .375 gm In Sodium Chloride 0.9% 100 ml @ 25 mls/hr IVPB Q12HR [facility] Rx #:[id number] Sodium Ferric Gluconat- 100 Sucrose 125 mg In Sodium Chloride 0.9% 100 ml @ 100 mls/hr IVPB DAILY [facility] Rx#:[id number] Oral 480 115 Output: Urine 150 200 Other: Voiding Method Indwelling Catheter Indwelling Catheter Indwelling Catheter # Bowel Movements 5 - Exam GENERAL EXAM: Alert, frail, weak, debilitated 89-year-old gentleman, on 3 L nasal cannula, comfortable in no apparent distress. HEAD: Normocephalic. EYES: Normal reaction of pupils, equal size. NOSE: Clear with pink turbinates. THROAT: No erythema or exudates. NECK: No masses, no JVD. CHEST: No chest wall deformity. LUNGS: Equal air entry with crackles in the bilateral posterior bases. CVS: S1 and S2 normal with audible murmur, regular rhythm. ABDOMEN: No hepatosplenomegaly, normal bowel sounds, no guarding or rigidity. SPINE: No scoliosis or deformity SKIN: No rashes CENTRAL NERVOUS SYSTEM: No focal deficits, tone is normal in all 4 extremities. EXTREMITIES: There is no peripheral edema. No clubbing, no cyanosis. Peripheral pulses are intact. - Labs CBC & Chem 7: 12/11/20 07:35 12/11/20 07:35 Labs: Abnormal Lab Results - Last 24 Hours (Table) 12/11/20 12/11/20 Range/Units 07:35 07:35 WBC 13.8 H (3.8-10.6) k/uL RBC 2.82 L (4.30-5.90) m/uL Hgb 9.5 L (13.0-17.5) gm/dL Hct 27.9 L (39.0-53.0) % Plt Count 87 L (150-450) k/uL Neutrophils # (Manual) 12.83 H (1.3-7.7) k/uL Lymphocytes # (Manual) 0.41 L (1.0-4.8) k/uL Nucleated RBCs 12 H (0-0) /100 WBC Carbon Dioxide 17 L (22-30) mmol/L BUN 127 H* (9-20) mg/dL Creatinine 5.61 H (0.66-1.25) mg/dL Glucose 143 H (74-99) mg/dL Calcium 7.0 L (8.4-10.2) mg/dL Assessment and Plan Assessment: 1 Acute non-ST elevation myocardial infarction 2 Acute hypoxic respiratory failure secondary to an acute on chronic systolic congestive heart failure 3 Acute kidney injury possible cardiorenal syndrome. Creatinine up to 5.61 4 Severe LV dysfunction based on recent echocardiogram, ejection fraction 20-25% 5 History of melanoma, status post resection 6 Benign essential hypertension 7 Right kidney lesion, needs outpatient follow-up. 8 Former smoker. Plan: The patient was seen and evaluated by Dr. Fiore Overall prognosis is quite poor DO NOT RESUSCITATE/DO NOT INTUBATE CODE STATUS Continue supportive care for now We will see as needed I, the cosigning physician, performed a history & physical examination of the patient. Lungs sounds with bilateral posterior bases. Maintaining O2 saturations in the 90s on 3 L/m per nasal cannula. I discussed the assessment and plan of care with my nurse practitioner, Chiquis Cunningham. I attest to the above note as dictated by her.
--- NOTE | 2020-12-22 21:43 | P.DS ---
Providers Date of admission: 12/04/20 14:35 Expected date of discharge: 12/11/20 Attending physician: Saroj Bradshaw Consults: 12/04/20 14:35 Consult Physician Urgent Consulting Provider: [facility] Consult Reason/Comments: Unstable angina Do you want consulting provider notified?: Yes 12/07/20 10:52 Consult Physician Routine Consulting Provider: Meir Baig Consult Reason/Comments: renal failure,NSTEMI Do you want consulting provider notified?: Yes 12/10/20 09:42 Consult Physician Routine Consulting Provider: Ryland Fiore Consult Reason/Comments: hypoxia,cardiorenal syn,RF,CHF, Do you want consulting provider notified?: Yes Primary care physician: Saroj Bradshaw - Discharge Diagnosis(es) (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 Patient condition worsen with increasing congestive heart failure and low ejection fraction cardiomyopathy. Patient's family recommending comfort care and patient peacefully 2020 at 10:50 AM. Plan - Discharge Summary New Discharge Prescriptions: New Atorvastatin [Lipitor] 40 mg PO DAILY@0900 #30 tab Ranolazine [Ranexa] 500 mg PO Q12HR #60 tab.er.12h Metoprolol Tartrate [Lopressor] 12.5 mg PO BID #60 tab Nitroglycerin Sl Tabs [Nitrostat] 0.4 mg SUBLINGUAL Q5M PRN #100 tab PRN Reason: Chest Pain Continue Aspirin 81 mg PO DAILY Pantoprazole Sodium [Protonix] 40 mg PO DAILY #30 tablet. Multivarun Thera [Multivitamin (formulary)] 1 tab PO DAILY Timolol [Betimol 0.5% Ophth Soln] 1 drop BOTH EYES DAILY Discontinued Spironolactone [Aldactone] 25 mg PO DAILY #30 tab Metoprolol Tartrate [Lopressor] 50 mg PO BID #60 tab lisinopriL [Zestril] 2.5 mg PO DAILY #30 tab Discharge Medication List Aspirin 81 mg PO DAILY 08/22/16 [History] Pantoprazole Sodium [Protonix] 40 mg PO DAILY #30 tablet. 01/01/20 [Rx] Multivitamins, Thera [Multivitamin (formulary)] 1 tab PO DAILY 12/04/20 [History] Timolol [Betimol 0.5% Ophth Soln] 1 drop BOTH EYES DAILY 12/04/20 [History] Atorvastatin [Lipitor] 40 mg PO DAILY@0900 #30 tab 12/07/20 [Rx] Metoprolol Tartrate [Lopressor] 12.5 mg PO BID #60 tab 12/07/20 [Rx] Nitroglycerin Sl Tabs [Nitrostat] 0.4 mg SUBLINGUAL Q5M PRN #100 tab 12/07/20 [Rx] Ranolazine [Ranexa] 500 mg PO Q12HR #60 tab.er.12h 12/07/20 [Rx] Follow up Appointment(s)/Referral(s): [facility], [NON-STAFF] - Saroj Bradshaw DO [Primary Care Provider] - As Needed (pt ) Activity/Diet/Wound Care/Special Instructions: No 80s secondary to renal function - Preliminary Cause of Preliminary Cause of : atherclerotic cardiovascular disease
== END 2020-12-11 16:15 | disposition expired ==
LOC: EC 12:58 → 3SCARD 14:35
PROVIDERS: ADMIT Family Medicine; ATTEND Family Medicine
PROC: 05H933Z Insertion of Infusion Device into Right Brachial Vein, Percutaneous Approach (ICD-10-PCS; principal; 2020-12-08 14:05)
DX: I21.4 Non-ST elevation (NSTEMI) myocardial infarction (principal); N17.0 Acute kidney failure with tubular necrosis; J96.01 Acute respiratory failure with hypoxia; I50.23 Acute on chronic systolic (congestive) heart failure; J18.9 Pneumonia, unspecified organism; I47.2 Ventricular tachycardia; E87.2 Acidosis; I13.0 Hypertensive heart and chronic kidney disease with heart failure and stage 1 through stage 4 chronic kidney disease, or unspecified chronic kidney disease; N18.4 Chronic kidney disease, stage 4 (severe); I27.20 Pulmonary hypertension, unspecified; D63.1 Anemia in chronic kidney disease; E86.0 Dehydration; I48.0 Paroxysmal atrial fibrillation; Z20.822 Contact with and (suspected) exposure to COVID-19; I25.5 Ischemic cardiomyopathy; Z66 Do not resuscitate; Z51.5 Encounter for palliative care; I95.9 Hypotension, unspecified; I08.0 Rheumatic disorders of both mitral and aortic valves; I25.10 Atherosclerotic heart disease of native coronary artery without angina pectoris; D50.9 Iron deficiency anemia, unspecified; E78.00 Pure hypercholesterolemia, unspecified; N28.89 Other specified disorders of kidney and ureter; K64.9 Unspecified hemorrhoids; I25.2 Old myocardial infarction; Z79.82 Long term (current) use of aspirin; Z79.899 Other long term (current) drug therapy; Z87.891 Personal history of nicotine dependence; Z85.820 Personal history of malignant melanoma of skin; Z87.81 Personal history of (healed) traumatic fracture; Z87.19 Personal history of other diseases of the digestive system; Z90.49 Acquired absence of other specified parts of digestive tract; Z98.890 Other specified postprocedural states; Z91.030 Bee allergy status; Z91.018 Allergy to other foods; Z80.0 Family history of malignant neoplasm of digestive organs
CPT/HCPCS: 36410; 36415; 71045; 71046; 76770; 76937; 80048; 80053; 80061; 81003; 82728; 83540; 83550; 83735; 84145; 84484; 85025; 85027; 85610; 85730; 87636; 93005; 93306; 94640; 94760; 99291